=== PATIENT | female | born 1935 | race Caucasian/White ===

== ENCOUNTER → 2016-04-01 | Outpatient (REF) | payer MEDICARE, BC ==
[~2016-04-01] MED LIST: AMLO10TA PO; AMLO10TA2 PO; ASPI32ECTA PO; ASPI81TA85 PO; ASPI81TAEC PO; ATOR1TAB19 PO; ATOR40TA PO; BOOSLIQ PO; CHLO25TA PO; COLA100C PO; ENSULIQ2 PO; FURO40TA2 PO; FURO8SOL PO; ISOS5TA PO; K-TA10TA2 PO; LEVA250T PO; LIPI80TA PO; LISI10TA4 PO; MOM30SS PO; NORV5TAB PO; PLAV75TA38 PO; POTA10CA PO; POTA20PW PO; PREV30CA11 PO; PROC30TA PO; REME15TA PO; REME30TA PO; SENO8.6T10 PO; THEO200T9 PO; TYLE325T5 PO; ZANT1TAB PO
[2016-04-01 14:37] LABS: PERCENT SATURATION 20.3 % (13.2-37.4)
== END ==
LOC: M LAB REF 13:54
PROVIDERS: ATTEND Internal Medicine Medical Oncology
DX: D64.9 Anemia, unspecified (principal)

== ENCOUNTER → 2016-06-06 | Outpatient (REF) | payer MEDICARE, BC ==
[~2016-06-06] MED LIST changes: -COLA100C PO; +COLA100C3 PO; +KLOR20PO12 PO; -POTA20PW PO; +THEO1TAB3 PO; -THEO200T9 PO
[2016-06-06 18:02] LABS: BASO % 0.6 % (0.0-1.0); EOS # 0.4 K/mm3 (0.0-0.50); EOS % 5.1 % (0.0-3.0); LARGE UNSTAINED CELL # 0.2 K/mm3 (0.0-0.4); LYMPH # 2.2 K/mm3 (1.5-4.5); LYMPH % 30.5 % (24.0-44.0); MEAN CORPUSCULAR HEMOGLOBIN 29.2 pg (27.0-33.0); MEAN CORPUSCULAR HGB CONC 32.7 g/dl (32.0-36.5); MEAN CORPUSCULAR VOLUME 89.2 fl (80.0-96.0); MONO # 0.4 K/mm3 (0.0-0.8); MONO % 4.9 % (0.0-5.0); NEUTROPHILS # 4.2 K/mm3 (1.8-7.7); NEUTROPHILS % 56.9 % (36.0-66.0); PLATELET COUNT, AUTOMATED 317 k/mm3 (150-450); WHITE BLOOD COUNT 7.4 K/mm3 (4.0-10.0)
[2016-06-06 19:36] LABS: ALBUMIN 3.8 GM/DL (3.2-5.2); BILIRUBIN,TOTAL 0.4 MG/DL (0.2-1.0); CALCIUM LEVEL 9.3 MG/DL (8.8-10.2); CREATININE FOR GFR 1.67 MG/DL (0.55-1.02); GLOMERULAR FILTRATION RATE 31.3 (>32); POTASSIUM SERUM 4.2 MEQ/L (3.5-5.1); TOTAL PROTEIN 7.6 GM/DL (6.4-8.2)
== END ==
LOC: M SFHCCLAY 13:33
PROVIDERS: ATTEND Family Medicine
DX: D64.9 Anemia, unspecified (principal); I10 Essential (primary) hypertension; E78.00 Pure hypercholesterolemia, unspecified
CPT/HCPCS: 80053; 80061; 83540; 85025; G0463

== ENCOUNTER → 2016-08-22 | Outpatient (CLI) | payer MEDICARE, BC ==
[~2016-08-22] MED LIST changes: +ALBU17IN2 INH; +ANOR1AER INH; +ASPI325T24 PO; -ASPI32ECTA PO; -ATOR40TA PO; +ATOR40TA75 PO; -COLA100C3 PO; +COLA100C5 PO; +ENSULIQ10 PO; -ENSULIQ2 PO; +FEOS45TA3 PO; +LEVA1TAB PO; -LEVA250T PO; +PLAV1TAB2 PO; -PLAV75TA38 PO; +PREV1CAP PO; -PREV30CA11 PO
--- NOTE | 2016-08-22 12:23 | REP ---
CHEST, TWO VIEWS: Two views of chest performed. Comparison 02/18/2016. There is cardiomegaly and pulmonary venous hypertension. There is mild chronic interstitial fibrosis. There is no acute infiltrate. There is calcification and tortuosity of the thoracic aorta. The mediastinal silhouette is unchanged. Left dual lead pacemaker is noted. There are degenerative changes of the spine. IMPRESSION: Cardiomegaly and chronic changes are stable. No evidence of acute infiltrate.
== END ==
LOC: M CLY 10:42
PROVIDERS: ATTEND Family Medicine
DX: I11.9 Hypertensive heart disease without heart failure (principal); R05 Cough
CPT/HCPCS: 71020; 80048; 83880; G0463

== ENCOUNTER → 2016-08-22 | Outpatient (REF) | payer MEDICARE, BC ==
[~2016-08-22] MED LIST changes: -ALBU17IN2 INH; -ANOR1AER INH; -ASPI325T24 PO; +ASPI32ECTA PO; +ATOR40TA PO; -ATOR40TA75 PO; +COLA100C3 PO; -COLA100C5 PO; -ENSULIQ10 PO; +ENSULIQ2 PO; -FEOS45TA3 PO; -LEVA1TAB PO; +LEVA250T PO; -PLAV1TAB2 PO; +PLAV75TA38 PO; -PREV1CAP PO; +PREV30CA11 PO
[2016-08-22 18:29] LABS: CALCIUM LEVEL 9.6 MG/DL (8.8-10.2); CREATININE FOR GFR 1.55 MG/DL (0.55-1.02); POTASSIUM SERUM 3.9 MEQ/L (3.5-5.1)
== END ==
LOC: M SFHCCLAY 09:40
PROVIDERS: ATTEND Nurse Practitioner Family
DX: I10 Essential (primary) hypertension (principal)

== ENCOUNTER → 2016-09-19 | Outpatient (REF) | payer MEDICARE, BC ==
[~2016-09-19] MED LIST changes: +ALBU17IN2 INH; +ANOR1AER INH; +ASPI325T24 PO; -ASPI32ECTA PO; -ATOR40TA PO; +ATOR40TA75 PO; -COLA100C3 PO; +COLA100C5 PO; +ENSULIQ10 PO; -ENSULIQ2 PO; +FEOS45TA3 PO; +LEVA1TAB PO; -LEVA250T PO; +PLAV1TAB2 PO; -PLAV75TA38 PO; +PREV1CAP PO; -PREV30CA11 PO
[2016-09-20 12:49] LABS: ADD MANUAL DIFFER YES; MEAN CORPUSCULAR HEMOGLOBIN 28.9 pg (27.0-33.0); MEAN CORPUSCULAR HGB CONC 31.9 g/dl (32.0-36.5); MEAN CORPUSCULAR VOLUME 90.7 fl (80.0-96.0); PLATELET COUNT, AUTOMATED 612 k/mm3 (150-450); RED CELL DISTRIBUTION WIDTH 13.3 % (11.5-14.5)
[2016-09-20 13:15] LABS: ALBUMIN/GLOBULIN RATIO 0.67 (1.00-1.93); BILIRUBIN,TOTAL 0.4 MG/DL (0.2-1.0); CREATININE FOR GFR 1.73 MG/DL (0.55-1.02); GLOMERULAR FILTRATION RATE 29.9 (>32); POTASSIUM SERUM 5.1 MEQ/L (3.5-5.1); TOTAL PROTEIN 7.5 GM/DL (6.4-8.2)
[2016-09-20 13:16] LABS: BASOPHILS 1 % (0-4); EOSINOPHILS 4 % (0-5)
== END ==
LOC: M SFHCCLAY 14:32
PROVIDERS: ATTEND Family Medicine
DX: I10 Essential (primary) hypertension (principal); R35.0 Frequency of micturition
CPT/HCPCS: 80053; 81002; 85025; 87086; G0463

== ENCOUNTER → 2016-09-26 | Outpatient (REF) | payer MEDICARE, BC ==
[2016-09-26 20:28] LABS: PERCENT SATURATION 12.3 % (13.2-37.4)
== END ==
LOC: M LAB REF 18:27
PROVIDERS: ATTEND Internal Medicine Nephrology
DX: N18.3 Chronic kidney disease, stage 3 (moderate) (principal); D63.1 Anemia in chronic kidney disease

== ENCOUNTER → 2016-09-30 | Outpatient (REF) | payer MEDICARE, BC ==
[2016-09-30 19:53] LABS: BASO % 0.5 % (0.0-1.0); EOS # 0.2 K/mm3 (0.0-0.50); EOS % 2.4 % (0.0-3.0); LARGE UNSTAINED CELL # 0.1 K/mm3 (0.0-0.4); LARGE UNSTAINED CELL % 1.5 % (0.0-4.0); LYMPH # 1.6 K/mm3 (1.5-4.5); LYMPH % 15.9 % (24.0-44.0); MEAN CORPUSCULAR HEMOGLOBIN 28.1 pg (27.0-33.0); MEAN CORPUSCULAR HGB CONC 31.9 g/dl (32.0-36.5); MEAN CORPUSCULAR VOLUME 88.3 fl (80.0-96.0); MONO # 0.7 K/mm3 (0.0-0.8); MONO % 7.4 % (0.0-5.0); NEUTROPHILS # 6.6 K/mm3 (1.8-7.7); NEUTROPHILS % 72.3 % (36.0-66.0); PLATELET COUNT, AUTOMATED 677 k/mm3 (150-450); RED CELL DISTRIBUTION WIDTH 13.6 % (11.5-14.5); WHITE BLOOD COUNT 9.1 K/mm3 (4.0-10.0)
== END ==
LOC: M SFHCCLAY 13:38
PROVIDERS: ATTEND Family Medicine
DX: D64.9 Anemia, unspecified (principal)

== ENCOUNTER 2016-10-11 07:46 | Outpatient (CLI) | payer MEDICARE, BC ==
[~2016-10-11] VITALS: Ht 154.9 cm; Wt 58.6 kg
[~2016-10-11 07:46] MED LIST changes: -ALBU17IN2 INH; -ANOR1AER INH; -FEOS45TA3 PO
[2016-10-11] MEDS ORDERED: IRON SUCROSE 25 MG in NS 50 ML IV ONE (08:00)
[2016-10-11] MEDS ORDERED: IRON SUCROSE 475 MG in NS 250 ML IV ONE (09:00)
[2016-10-11] MEDS ORDERED: ALBU17IN2 INH (09:29)
[2016-10-11] MEDS ORDERED: ANOR1AER INH (09:30)
[2016-10-11] MEDS ORDERED: FEOS45TA3 PO (09:30)
== END 2016-10-11 13:10 | disposition home or self-care (01) ==
LOC: M INFU 07:46
PROVIDERS: ATTEND Internal Medicine Nephrology
DX: D50.9 Iron deficiency anemia, unspecified (principal); Z88.0 Allergy status to penicillin; Z79.899 Other long term (current) drug therapy
CPT/HCPCS: 96365; 96366; J1756

== ENCOUNTER → 2016-10-31 | Outpatient (REF) | payer MEDICARE, BC ==
[~2016-10-31] MED LIST changes: +ALBU17IN2 INH; +ANOR1AER INH; +FEOS45TA3 PO
[2016-11-01 11:38] LABS: BASO # 0.1 K/mm3 (0.0-0.2); BASO % 0.6 % (0.0-1.0); EOS # 0.3 K/mm3 (0.0-0.50); EOS % 3.3 % (0.0-3.0); LARGE UNSTAINED CELL # 0.2 K/mm3 (0.0-0.4); LARGE UNSTAINED CELL % 1.7 % (0.0-4.0); LYMPH # 2.8 K/mm3 (1.5-4.5); MEAN CORPUSCULAR HEMOGLOBIN 28.3 pg (27.0-33.0); MEAN CORPUSCULAR HGB CONC 32.2 g/dl (32.0-36.5); MEAN CORPUSCULAR VOLUME 87.9 fl (80.0-96.0); MONO # 0.4 K/mm3 (0.0-0.8); MONO % 4.8 % (0.0-5.0); NEUTROPHILS # 5.3 K/mm3 (1.8-7.7); NEUTROPHILS % 59.6 % (36.0-66.0); PLATELET COUNT, AUTOMATED 511 k/mm3 (150-450); RED CELL DISTRIBUTION WIDTH 15.3 % (11.5-14.5); WHITE BLOOD COUNT 8.9 K/mm3 (4.0-10.0)
[2016-11-01 11:56] LABS: CALCIUM LEVEL 9.6 MG/DL (8.8-10.2); CREATININE FOR GFR 1.78 MG/DL (0.55-1.02); POTASSIUM SERUM 4.9 MEQ/L (3.5-5.1)
== END ==
LOC: M SFHCCLAY 15:29
PROVIDERS: ATTEND Family Medicine
DX: D64.9 Anemia, unspecified (principal); I10 Essential (primary) hypertension
CPT/HCPCS: 80048; 83540; 85025; G0463

== ENCOUNTER → 2017-01-02 | Outpatient (REF) | payer MEDICARE, BC ==
[2017-01-02 20:49] LABS: MEAN CORPUSCULAR HEMOGLOBIN 27.2 pg (27.0-33.0); MEAN CORPUSCULAR HGB CONC 30.9 g/dl (32.0-36.5); MEAN CORPUSCULAR VOLUME 87.9 fl (80.0-96.0); PLATELET COUNT, AUTOMATED 368 10^3/uL (150-450); RED CELL DISTRIBUTION WIDTH 17.1 % (11.5-14.5); WHITE BLOOD COUNT 7.8 10^3/uL (4.0-10.0)
== END ==
LOC: M LAB REF 16:26
PROVIDERS: ATTEND Physician Assistant
DX: I48.0 Paroxysmal atrial fibrillation (principal); Z51.81 Encounter for therapeutic drug level monitoring; Z79.01 Long term (current) use of anticoagulants; Z23 Encounter for immunization
CPT/HCPCS: 36415; 85027; 90662; G0008; G0463

== ENCOUNTER → 2017-08-10 | Outpatient (REF) | payer MEDICARE, BC ==
[2017-08-10 18:46] LABS: ANION GAP 10 MEQ/L (8-16); BLOOD UREA NITROGEN 24 MG/DL (7-18); CALCIUM LEVEL 9.2 MG/DL (8.8-10.2); CARBON DIOXIDE LEVEL 21 MEQ/L (21-32); CHLORIDE LEVEL 109 MEQ/L (98-107); GLOMERULAR FILTRATION RATE 28.5 (>32); GLUCOSE, FASTING 101 MG/DL (70-100); POTASSIUM SERUM 4.1 MEQ/L (3.5-5.1); SODIUM LEVEL 140 MEQ/L (136-145)
== END ==
LOC: M SFHCCLAY 09:48
DX: R35.0 Frequency of micturition (principal)
CPT/HCPCS: 80048

== ENCOUNTER 2017-08-15 12:44 | Emergency (ER) | payer MEDICARE, BC ==
[2017-08-15] MEDS: ACETAMINOPHEN TAB 650MG DOSE (2X325MG) PO (14:44)
[2017-08-15 14:48] LABS: BASO # 0.1 10^3/uL (0.0-0.2); BASO % 1.1 % (0.0-1.0); EOS # 0.2 10^3/uL (0.0-0.50); EOS % 2.6 % (0.0-3.0); HEMATOCRIT 33.4 % (36.0-47.0); HEMOGLOBIN 10.5 g/dl (12.0-15.5); IMMATURE GRANULOCYTE % 0.2 % (0-3.0); LYMPH # 1.4 10^3/uL (1.5-4.5); LYMPH % 20.9 % (24.0-44.0); MEAN CORPUSCULAR HEMOGLOBIN 27.9 pg (27.0-33.0); MEAN CORPUSCULAR HGB CONC 31.4 g/dl (32.0-36.5); MEAN CORPUSCULAR VOLUME 88.6 fl (80.0-96.0); MONO # 0.6 10^3/uL (0.0-0.8); NEUTROPHILS # 4.3 10^3/uL (1.8-7.7); NEUTROPHILS % 66.2 % (36.0-66.0); PLATELET COUNT, AUTOMATED 339 10^3/uL (150-450); RED BLOOD COUNT 3.77 10^6/uL (4.00-5.40); RED CELL DISTRIBUTION WIDTH 15.9 % (11.5-14.5); WHITE BLOOD COUNT 6.5 10^3/uL (4.0-10.0)
[2017-08-15 15:09] LABS: INR 1.19; PROTHROMBIN TIME 15.3 SECONDS (12.4-14.5)
[2017-08-15 15:11] LABS: PARTIAL THROMBOPLASTIN TIME 47.6 SECONDS (26.8-37.9)
[2017-08-15 15:16] LABS: ANION GAP 7 MEQ/L (8-16); BLOOD UREA NITROGEN 19 MG/DL (7-18); CALCIUM LEVEL 9.3 MG/DL (8.8-10.2); CARBON DIOXIDE LEVEL 26 MEQ/L (21-32); CHLORIDE LEVEL 108 MEQ/L (98-107); CK-MB VALUE MASS 1.4 NG/ML (<3.6); CPK CREATINE PHOSPHOKINASE 127 U/L (26-192); CREATININE FOR GFR 1.66 MG/DL (0.55-1.30); GLOMERULAR FILTRATION RATE 31.3 (>32); GLUCOSE, FASTING 111 MG/DL (70-100); POTASSIUM SERUM 3.8 MEQ/L (3.5-5.1); SODIUM LEVEL 141 MEQ/L (136-145); TROPONIN I < 0.02 NG/ML (< 0.10)
== END 2017-08-15 16:55 | disposition home or self-care (01) ==
LOC: M ED 12:44
DX: R51 Headache (principal); R44.3 Hallucinations, unspecified; I13.10 Hypertensive heart and chronic kidney disease without heart failure, with stage 1 through stage 4 chronic kidney disease, or unspecified chronic kidney disease; I50.9 Heart failure, unspecified; I25.10 Atherosclerotic heart disease of native coronary artery without angina pectoris; E78.9 Disorder of lipoprotein metabolism, unspecified; J44.9 Chronic obstructive pulmonary disease, unspecified; N18.9 Chronic kidney disease, unspecified; Z86.73 Personal history of transient ischemic attack (TIA), and cerebral infarction without residual deficits; I25.2 Old myocardial infarction; K21.9 Gastro-esophageal reflux disease without esophagitis; Z87.891 Personal history of nicotine dependence; Z88.0 Allergy status to penicillin; Z79.899 Other long term (current) drug therapy; Z79.01 Long term (current) use of anticoagulants; Z79.82 Long term (current) use of aspirin
CPT/HCPCS: 71045

== ENCOUNTER → 2018-09-18 | Outpatient (REF) | payer MEDICARE, BC ==
[~2018-09-18] MED LIST changes: -AMLO10TA2 PO; +AMLO10TA5 PO; +ASPI-255 PO; -ASPI325T24 PO; +ASPI81TA26 PO; +BISO5TAB5 PO; +ELIQ2.5T PO; +FIBE625T22 PO; +FLUT11IN INH; +FURO20TA2 PO; +KLOR10TA76 PO; -LEVA1TAB PO; +LEVA250T13 PO; +POLY150C4 PO; -POTA10CA PO; +PROAAER10 INH; +SPIR-10 PO; -THEO1TAB3 PO; +THEO200T12 PO; +ZANT150T15 PO; -ZANT1TAB PO
== END ==
LOC: M SFHCCLAY 14:10
PROVIDERS: ATTEND Family Medicine
DX: N39.0 Urinary tract infection, site not specified (principal)
CPT/HCPCS: 81002; 87088; 87186; G0463

== ENCOUNTER → 2018-10-18 | Outpatient (REF) | payer MEDICARE, BC ==
[2018-10-18 14:17] LABS: CALCIUM LEVEL 9.7 MG/DL (8.8-10.2); CREATININE FOR GFR 1.93 MG/DL (0.55-1.30); GLOMERULAR FILTRATION RATE 26.3 (>32); POTASSIUM SERUM 4.5 MEQ/L (3.5-5.1)
== END ==
LOC: M SFHCCLAY 09:05
PROVIDERS: ATTEND Nurse Practitioner Family
DX: R41.0 Disorientation, unspecified (principal)
CPT/HCPCS: 80048; 81002; G0463

== ENCOUNTER → 2018-11-02 | Outpatient (REF) | payer MEDICARE, BC ==
[~2018-11-02] MED LIST changes: -BISO5TAB5 PO; +BISO5TAB9 PO
== END ==
LOC: M SFHCCLAY 16:11
PROVIDERS: ATTEND Family Medicine
DX: R31.9 Hematuria, unspecified (principal)
CPT/HCPCS: 81002; 87088; 87186; G0463

== ENCOUNTER → 2018-11-26 | Outpatient (REF) | payer MEDICARE, BC ==
[2018-11-26 19:16] LABS: FERRITIN 9 NG/ML (8-252); IRON (FE) 32 UG/DL (50-170); PERCENT SATURATION 8.2 % (13.2-45.0); TOTAL IRON BINDING CAPACITY 389 UG/DL (250-450)
[2018-11-26 19:44] LABS: VITAMIN B12 LEVEL 666 PG/ML
[2018-11-26 19:45] LABS: FOLATE > 24.0 NG/ML
== END ==
LOC: M LAB REF 18:28
PROVIDERS: ATTEND Internal Medicine Nephrology
DX: D50.9 Iron deficiency anemia, unspecified (principal)

== ENCOUNTER 2018-12-04 09:27 | Outpatient (CLI) | payer MEDICARE, BC ==
[~2018-12-04] VITALS: Ht 152.4 cm; Wt 78.8 kg
[2018-12-04] VITALS (7 sets, daily range): BP systolic 123–170; BP diastolic 58–76
[2018-12-04] MEDS ORDERED: IRON SUCROSE 175 MG in NS 100 ML IV ONE (11:00)
[2018-12-04] MEDS ORDERED: IRON SUCROSE 25 MG in NS 50 ML IV ONE (11:00)
== END 2018-12-04 14:45 | disposition home or self-care (01) ==
LOC: M INFU 09:27
PROVIDERS: ATTEND Internal Medicine Nephrology
DX: D50.9 Iron deficiency anemia, unspecified (principal); Z79.899 Other long term (current) drug therapy; Z88.0 Allergy status to penicillin
CPT/HCPCS: 96365; 96366; 96367; J1756

== ENCOUNTER 2018-12-11 09:53 | Outpatient (CLI) | payer MEDICARE, BC ==
[~2018-12-11] VITALS: Ht 152.4 cm; Wt 78.7 kg
[2018-12-11 10:35] VITALS: BP 158/67
[2018-12-11 10:50] VITALS: BP 150/69
[2018-12-11] MEDS ORDERED: IRON SUCROSE 200 MG in NS 100 ML IV ONE (11:00)
[2018-12-11 11:50] VITALS: BP 149/66
[2018-12-11 12:50] VITALS: BP 147/65
[2018-12-11 14:00] VITALS: BP 158/74
== END 2018-12-11 14:20 | disposition home or self-care (01) ==
LOC: M INFU 09:53
PROVIDERS: ATTEND Internal Medicine Nephrology
DX: D50.9 Iron deficiency anemia, unspecified (principal); Z79.899 Other long term (current) drug therapy; Z79.82 Long term (current) use of aspirin; Z88.0 Allergy status to penicillin
CPT/HCPCS: 96365; 96366; J1756

== ENCOUNTER 2018-12-18 11:24 | Outpatient (CLI) | payer MEDICARE, BC ==
[~2018-12-18] VITALS: Ht 152.4 cm; Wt 78.8 kg
[~2018-12-18 11:24] MED LIST changes: +BISO5TAB14 PO; -BISO5TAB9 PO
[2018-12-18 11:52] VITALS: BP 142/65
[2018-12-18] MEDS ORDERED: IRON SUCROSE 200 MG in NS 100 ML OVER 1 HR IV ONE (12:30)
[2018-12-18 12:45] VITALS: BP 144/62
[2018-12-18 13:52] VITALS: BP 133/63
[2018-12-18 14:40] VITALS: BP 129/60
== END 2018-12-18 14:40 | disposition home or self-care (01) ==
LOC: M INFU 11:24
PROVIDERS: ATTEND Internal Medicine Nephrology
DX: D50.9 Iron deficiency anemia, unspecified (principal); N18.4 Chronic kidney disease, stage 4 (severe); N27.0 Small kidney, unilateral; I70.1 Atherosclerosis of renal artery; Z79.899 Other long term (current) drug therapy
CPT/HCPCS: 96365; 96366; J1756

== ENCOUNTER → 2019-08-16 | Outpatient (REF) | payer MEDICARE, BC ==
[2019-08-16 18:12] LABS: PERCENT SATURATION 14.1 % (13.2-45.0)
== END ==
LOC: M LAB REF 16:49
PROVIDERS: ATTEND Internal Medicine Nephrology
DX: D50.9 Iron deficiency anemia, unspecified (principal)

== ENCOUNTER 2019-08-27 21:19 | Inpatient (IN) | payer MEDICARE, BC ==
[~2019-08-27] VITALS: Ht 152.4 cm; Wt 79.3 kg
--- NOTE | 2019-08-27 23:13 | REPVR ---
PROCEDURE INFORMATION: Exam: CT Lumbar Spine Without Contrast Exam date and time: 08/27/2019 10:50 PM Age: 84 years old Clinical indication: Low back pain; Additional info: Fall with pain to lower back TECHNIQUE: Imaging protocol: Computed tomography images of the lumbar spine without contrast. Radiation optimization: All CT scans at this facility use at least one of these dose optimization techniques: automated exposure control; mA and/or kV adjustment per patient size (includes targeted exams where dose is matched to clinical indication); or iterative reconstruction. COMPARISON: No relevant prior studies available. FINDINGS: Vertebrae: Vertebrae are hypodense bones indicating osteopenia. Minimal L4-L5 anterolisthesis. No acute vertebral fracture/subluxation. Discs/Spinal canal/Neural foramina: Diffuse degenerative disc space loss, facet arthropathy and ligamentum flavum thickening, and scattered disc bulge/protrusions cause up to moderate foraminal and spinal stenosis most severe from L3 through S1. Kidneys and ureters: Right renal scarring. Right renal atrophy. Stomach and bowel: Colonic diverticulosis. Vasculature: Aortic atherosclerosis. Soft tissues: Unremarkable. IMPRESSION: No acute vertebral fracture/subluxation. Moderate spondylosis. Electronically signed by: Kyle Castillo On 08/27/2019 23:13:00 PM
[2019-08-27 23:38] LABS: BASO # 0.1 10^3/uL (0.0-0.2); BASO % 0.7 % (0.0-1.0); EOS # 0.2 10^3/uL (0.0-0.5); EOS % 2.6 % (0.0-3.0); HEMATOCRIT 38.1 % (36.0-47.0); HEMOGLOBIN 12.1 g/dl (12.0-15.5); LYMPH # 2.5 10^3/uL (1.5-5.0); LYMPH % 27.6 % (24.0-44.0); MEAN CORPUSCULAR HEMOGLOBIN 27.8 pg (27.0-33.0); MEAN CORPUSCULAR HGB CONC 31.8 g/dl (32.0-36.5); MEAN CORPUSCULAR VOLUME 87.4 fl (80.0-96.0); MONO # 0.8 10^3/uL (0.0-0.8); MONO % 9.2 % (0.0-5.0); NEUTROPHILS # 5.5 10^3/uL (1.5-8.5); NEUTROPHILS % 59.7 % (36.0-66.0); PLATELET COUNT, AUTOMATED 280 10^3/uL (150-450); RED BLOOD COUNT 4.36 10^6/uL (4.00-5.40); WHITE BLOOD COUNT 9.2 10^3/uL (4.0-10.0)
[2019-08-28 00:01] LABS: ALBUMIN 3.4 GM/DL (3.2-5.2); BILIRUBIN,DIRECT 0.1 MG/DL (0.0-0.2); BILIRUBIN,TOTAL 0.4 MG/DL (0.2-1.0); CREATININE FOR GFR 2.16 MG/DL (0.55-1.30); POTASSIUM SERUM 3.8 MEQ/L (3.5-5.1); TOTAL PROTEIN 7.1 GM/DL (6.4-8.2)
[2019-08-28] MEDS ORDERED: SERT50TA29 PO (02:24)
[2019-08-28] MEDS ORDERED: OLAN2.5T25 PO (02:24)
[2019-08-28] MEDS ORDERED: ACET1TAB55 PO (02:48)
[2019-08-28] MEDS ORDERED: CALC625T15 PO (02:48)
[2019-08-28] MEDS ORDERED: AMLO5TAB6 PO (02:48)
--- NOTE | 2019-08-28 03:47 | HPEPDOC ---
[facility] Medical History & Physical Date of Admission Aug 28, 2019 Date of Service: Aug 28, 2019 Attending Physician: SIVA ARDON MD History and Physical CHIEF COMPLAINT: Fall HISTORY OF PRESENT ILLNESS: 84-year-old female with past medical history of CVA, COPD, hypertension, paroxysmal atrial fibrillation (on Eliquis), hypertension, iron deficiency anemia and chronic kidney disease presents after a fall. Patient is comfortable, reports left hip/low back pain due to the fall and repeatedly re quested to go back home. Patient's [id number]-ub-gwz is at bedside, reports that patient is having progressively worsening dementia symptoms along with hallucinations. She still lives alone and awtycout-[id number] is concerned about her safety at home and requesting placement for the patient. Patient denies any shortness of breath, chest pain, nausea, vomiting, diarrhea or constipation. 10 point review of systems negative except for above PAST MEDICAL HISTORY: 1. CVA. 2. Chronic kidney disease. 3. Paroxysmal atrial fibrillation. 4. Iron deficiency anemia 5. COPD 6. Hypertension PAST SURGICAL HISTORY: 1. Carotid endarterectomy. SOCIAL HISTORY: Previous smoker. Denies alcohol use. Denies drug use FAMILY HISTORY: Positive for heart disease ALLERGIES: Please see below. HOME MEDICATIONS: Please see below. PHYSICAL EXAMINATION: VITAL SIGNS: Please see below. GENERAL: No distress HEENT: Normocephalic, atraumatic, moist mucous membranes NECK: Supple CARDIOVASCULAR EXAMINATION: S1, S2, no murmurs RESPIRATORY EXAMINATION: Scattered rhonchi, no wheezing ABDOMINAL EXAMINATION: Soft, nontender, nondistended, positive bowel sounds EXTREMITIES: Trace lower extremity edema SKIN: No rash NEUROLOGICAL EXAMINATION: Alert and oriented 3, no focal deficits PSYCHIATRIC EXAMINATION: Calm and cooperative LABORATORY DATA: See below. IMAGING: Hip imaging negative for fracture MICROBIOLOGY: Please see below. ASSESSMENT: 84-year-old female with multiple medical comorbidities who presented after a fall is being admitted for possible placement. PLAN: 1. Fall/physical deconditioning Having progressive symptoms of dementia with hallucinations, lives alone, family requesting placement, PT/OT evaluation, social services analyst to arrange placement. 2. History of CVA. Continue statin. 3. Paroxysmal atrial fibrillation. Continue Eliquis for anticoagulation and metoprolol for rate control. 4. COPD Stable, continue home regimen. 5. Hypertension. continue bisoprolol, Norvasc and spironolactone DVT prophylaxis: On Eliquis GI prophylaxis: Not needed Vital Signs Vital Signs Date Time Temp Pulse Resp B/P (MAP) Pulse Ox O2 Delivery O2 Flow Rate FiO2 08/27/19 23:24 18 08/27/19 21:20 97.3 79 96 Room Air Laboratory Data Labs 24H Laboratory Tests 2 08/27/19 23:19: Immature Granulocyte % (Auto) 0.2, Neutrophils (%) (Auto) 59.7, Lymphocytes (%) (Auto) 27.6, Monocytes (%) (Auto) 9.2H, Eosinophils (%) (Auto) 2.6, Basophils (%) (Auto) 0.7, Neutrophils # (Auto) 5.5, Lymphocytes # (Auto) 2.5, Monocytes # (Auto) 0.8, Eosinophils # (Auto) 0.2, Basophils # (Auto) 0.1, Nucleated Red Blood Cells % (auto) 0.0, Anion Gap 9, Glomerular Filtration Rate 23.0L, Lactic Acid Level 1.0, Calcium Level 9.0, Total Bilirubin 0.4, Direct Bilirubin 0.1, Aspartate Amino Transf (AST/SGOT) 15, Alanine Aminotransferase (ALT/SGPT) 17, Alkaline Phosphatase 133H, Total Protein 7.1, Albumin 3.4, Albumin/Globulin Ratio 0.9L, Lipase 104 08/28/19 00:43: Urine Color YELLOW, Urine Appearance HAZY, Urine pH 5.0, Urine Specific [place] 1.008, Urine Protein NEGATIVE, Urine Glucose (UA) NEGATIVE, Urine Ketones NEGATIVE, Urine Blood NEGATIVE, Urine Nitrite NEGATIVE, Urine Bilirubin NEGATIVE, Urine Urobilinogen 0.2, Urine Leukocyte Esterase 2+H, Urine WBC (Auto) 12H, Urine RBC (Auto) 1, Urine Hyaline Casts (Auto) 0, Urine Bacteria (Auto) 1+H, Urine Squamous Epithelial Cells 1, Urine Sperm (Auto) CBC/BMP Laboratory Tests 08/27/19 23:19 Microbiology Microbiology 08/28/19 Urine Culture, Received Pending 08/28/19 Blood Culture, Received Pending 08/27/19 Blood Culture, Received Pending Home Medications Scheduled Amlodipine Besylate (Amlodipine Besylate) 5 Mg Tablet, 5 MG PO DAILY Apixaban (Eliquis) 2.5 Mg Tab, 2.5 MG PO BID Atorvastatin Calcium (Lipitor) 80 Mg Tab, 80 MG PO QHS Bisoprolol Fumarate (Bisoprolol Fumarate) 5 Mg Tab, 5 MG PO DAILY Calcium Polycarbophil (Calcium Polycarbophil) 625 Mg Tablet, 625 MG PO DAILY Docusate Sodium (Colace) 100 Mg Cap, 100 MG PO BID Fluticasone Propionate (Flovent Hfa) 110 Mcg/Act Aer, 1 PUFF INH BID Furosemide (Furosemide) 20 Mg Tab, 20 MG PO DAILY Iron Polysaccharide Complex (Poly-Iron) 150 Mg Cap, 150 MG PO DAILY Sertraline HCl (Sertraline HCl) 50 Mg Tablet, 50 MG PO DAILY Spironolactone (Spironolactone) 25 Mg Tab, 12.5 MG PO DAILY Umeclidinium Brm/Vilanterol Tr (Anoro Ellipta 62.5-25 Mcg INH) 1 Aer Aer, 1 PUFF INH DAILY Scheduled PRN Acetaminophen (Acetaminophen) 325 Mg Tablet, 650 MG PO Q6H PRN for PAIN Albuterol Sulfate (Proair Hfa) 108 Mcg/Act Aer, 2 PUFF INH QID PRN for SHORTNESS OF BREATH Allergies Coded Allergies: Penicillins (Verified Allergy, Intermediate, HIVES, 08/27/19) A-FIB/CHADSVASC A-FIB History Current/History of A-Fib/PAF?: Yes Current PO Anticoag Therapy: Yes SIVA ARDON MD Aug 28, 2019 03:47
[2019-08-28] MEDS ORDERED: FAMO40TA3 PO (04:00)
[2019-08-28 04:30] VITALS: BP 153/74
[2019-08-28] MEDS ORDERED: ACETAMINOPHEN TAB 650MG DOSE (2X325MG) PO PRN (05:45)
[2019-08-28] MEDS ORDERED: ALBUTEROL 90 MCG/ACT 8GM HFA INHALER INH PRN (05:45)
[2019-08-28 06:00] VITALS: BP 148/68
[2019-08-28] MEDS: ATORVASTATIN 20 MG TAB PO SCH ×2 (06:07→20:30)
--- NOTE | 2019-08-28 08:11 | REP ---
Pelvis bilateral hip study: Five views. History: Injury in a fall. Findings: AP view of the pelvis demonstrates an intact bony pelvic ring. No pelvic or sacral fracture is seen. There is prominent vascular calcification. AP and frog-leg views of both hips demonstrate intact femoral heads and preserved joint spaces. Periarticular soft tissues are unremarkable. No fractures seen. Impression: No fracture noted. Electronically Signed by Micheal Cheema MD 08/28/2019 08:03 A
[2019-08-28 08:36] LABS: BASO # 0.1 10^3/uL (0.0-0.2); BASO % 0.7 % (0.0-1.0); EOS # 0.2 10^3/uL (0.0-0.5); EOS % 2.3 % (0.0-3.0); HEMATOCRIT 41.5 % (36.0-47.0); HEMOGLOBIN 13.2 g/dl (12.0-15.5); LYMPH # 2.5 10^3/uL (1.5-5.0); LYMPH % 27.9 % (24.0-44.0); MEAN CORPUSCULAR HEMOGLOBIN 28.4 pg (27.0-33.0); MEAN CORPUSCULAR HGB CONC 31.8 g/dl (32.0-36.5); MEAN CORPUSCULAR VOLUME 89.2 fl (80.0-96.0); MONO # 0.8 10^3/uL (0.0-0.8); MONO % 8.6 % (0.0-5.0); NEUTROPHILS # 5.5 10^3/uL (1.5-8.5); NEUTROPHILS % 60.3 % (36.0-66.0); PLATELET COUNT, AUTOMATED 266 10^3/uL (150-450); RED BLOOD COUNT 4.65 10^6/uL (4.00-5.40)
[2019-08-28] MEDS: DOCUSATE SODIUM 100 MG CAP PO SCH ×2 (08:42→20:30)
[2019-08-28] MEDS: FUROSEMIDE 20 MG TAB PO SCH (08:42)
[2019-08-28] MEDS: FIBER-CON 625 MG TAB PO SCH (08:42)
[2019-08-28] MEDS: APIXABAN 2.5 MG TAB (ELIQUIS) PO SCH ×2 (08:42→20:30)
[2019-08-28] MEDS: SERTRALINE HCL 50 MG TAB PO SCH (08:42)
[2019-08-28] MEDS: bisoproloL fumarate 5 MG TAB PO SCH (08:43)
[2019-08-28] MEDS: SPIRONOLACTONE 12.5MG PER 1/2 TABLET PO SCH (08:43)
[2019-08-28] MEDS: amLODIPine 5 MG TAB PO SCH (08:43)
[2019-08-28] MEDS ORDERED: ENTER DRUG NAME HERE (PATIENT'S OWN MED) INH SCH (09:00)
[2019-08-28 09:07] LABS: CALCIUM LEVEL 9.3 MG/DL (8.8-10.2); CREATININE FOR GFR 1.98 MG/DL (0.55-1.30); GLOMERULAR FILTRATION RATE 25.4 (>32); POTASSIUM SERUM 3.9 MEQ/L (3.5-5.1)
--- NOTE | 2019-08-28 10:58 | IPNPDOC ---
Text Note Date of Service The patient was seen on 08/28/19. NOTE Subjective: Patient does not offer any complaints this morning, sitting up in chair having breakfast. No overnight events. PHYSICAL EXAMINATION: VITAL SIGNS: Please see below. GENERAL: No distress, alert, awake , sitting in chair. HEENT: Normocephalic, atraumatic, moist mucous membranes NECK: Supple CARDIOVASCULAR EXAMINATION: S1, S2, no murmurs RESPIRATORY EXAMINATION: Scattered rhonchi, no wheezing ABDOMINAL EXAMINATION: Soft, nontender, nondistended, positive bowel sounds EXTREMITIES: Trace lower extremity edema SKIN: No rash NEUROLOGICAL EXAMINATION: no focal deficits PSYCHIATRIC EXAMINATION: Calm and cooperative Labs and Radiology: reviewed. Assessment and Plan: 84-year-old female with past medical history of Dementia, h/o CVA, COPD, hypertension, paroxysmal atrial fibrillation (on Eliquis), hypertension, iron deficiency anemia and chronic kidney disease , carotid endarterectomy, presents after a fall. Patient is comfortable, reports left hip/low back pain due to the fall and repeatedly requested to go back home. Patient's [id number]-ws-jce is at bedside, reports that patient is having progressively worsening dementia symptoms along with hallucinations. She still lives alone and rwvycuzq-nr-[id number] is concerned about her safety at home and requesting placement for the patient. Fall/physical deconditioning Having progressive symptoms of dementia with hallucinations, lives alone, family requesting placement PT/OT evaluation, psychiatric social worker supervisor to arrange placement. Advancing Dementia with wandering and hallucinations and difficulty in sleeping. difficulty in managing at home For assistant terminal manager placement in locked unit. CKD stage 4. Baseline creatinine about 1.8 to 2.0 creatinine at baseline. History of CVA. Continue statin. Paroxysmal atrial fibrillation. Continue Eliquis for anticoagulation and metoprolol for rate control. COPD will change Anoro to salmeteraol and spiriva. Hypertension. continue bisoprolol, Norvasc and spironolactone DVT prophylaxis: On Eliquis GI prophylaxis: Not needed VS,Fishbone, I+O VS, Fishbone, I+O Laboratory Tests 08/27/19 23:19 08/28/19 08:17 Vital Signs Date Time Temp Pulse Resp B/P (MAP) Pulse Ox O2 Delivery O2 Flow Rate FiO2 08/28/19 08:43 67 148/68 08/28/19 06:00 97.5 14 95 Room Air I&O- Last 24 Hours up to 6 AM 08/28/19 06:00 Intake Total 60 ml Output Total 0 ml Balance 60 ml ASHLEY TYLER MD Aug 28, 2019 10:58
[2019-08-28] MEDS: SALMETEROL DISKUS 50MCG INHALER (SEREVENT) INH SCH ×2 (13:38→19:46)
[2019-08-28] MEDS: TIOTROPIUM INHALER/CAPSULE (SPIRIVA) INH SCH (13:39)
[2019-08-28 14:00] VITALS: BP 143/67
[2019-08-28 20:23] VITALS: BP 144/65
[2019-08-29 05:46] VITALS: BP 139/61
[2019-08-29 07:23] LABS: BASO # 0.1 10^3/uL (0.0-0.2); BASO % 0.9 % (0.0-1.0); EOS # 0.3 10^3/uL (0.0-0.5); EOS % 3.7 % (0.0-3.0); HEMATOCRIT 38.3 % (36.0-47.0); HEMOGLOBIN 11.8 g/dl (12.0-15.5); LYMPH # 1.9 10^3/uL (1.5-5.0); LYMPH % 23.6 % (24.0-44.0); MEAN CORPUSCULAR HEMOGLOBIN 27.2 pg (27.0-33.0); MEAN CORPUSCULAR HGB CONC 30.8 g/dl (32.0-36.5); MEAN CORPUSCULAR VOLUME 88.2 fl (80.0-96.0); MONO # 0.7 10^3/uL (0.0-0.8); MONO % 8.9 % (0.0-5.0); NEUTROPHILS # 5.1 10^3/uL (1.5-8.5); NEUTROPHILS % 62.5 % (36.0-66.0); PLATELET COUNT, AUTOMATED 286 10^3/uL (150-450); RED BLOOD COUNT 4.34 10^6/uL (4.00-5.40); WHITE BLOOD COUNT 8.1 10^3/uL (4.0-10.0)
--- NOTE | 2019-08-29 07:33 | IPNPDOC ---
Text Note Date of Service The patient was seen on 08/29/19. NOTE Subjective: Patient does not offer any complaints this morning, sitting up in chair having breakfast. No overnight events. PHYSICAL EXAMINATION: VITAL SIGNS: Please see below. GENERAL: No distress, alert, awake , sitting in chair. HEENT: Normocephalic, atraumatic, moist mucous membranes NECK: Supple CARDIOVASCULAR EXAMINATION: S1, S2, no murmurs RESPIRATORY EXAMINATION: Scattered rhonchi, no wheezing ABDOMINAL EXAMINATION: Soft, nontender, nondistended, positive bowel sounds EXTREMITIES: Trace lower extremity edema SKIN: No rash NEUROLOGICAL EXAMINATION: no focal deficits PSYCHIATRIC EXAMINATION: Calm and cooperative Labs and Radiology: reviewed. Assessment and Plan: 84-year-old female with past medical history of Dementia, h/o CVA, COPD, hypertension, paroxysmal atrial fibrillation (on Eliquis), hypertension, iron deficiency anemia and chronic kidney disease , carotid endarterectomy, presents after a fall. Patient is comfortable, reports left hip/low back pain due to the fall and repeatedly requested to go back home. Patient's cgznsjmx-of-glp is at bedside, reports that patient is having progressively worsening dementia symptoms along with hallucinations. She still lives alone and ejhocyys-ed-[id number] is concerned about her safety at home and requesting placement for the patient. Fall/physical deconditioning Having progressive symptoms of dementia with hallucinations, lives alone, family requesting placement PT/OT evaluation, loft worker head to arrange placement. Advancing Dementia with wandering and hallucinations and difficulty in sleeping. difficulty in managing at home For oysterman placement in locked unit. CKD stage 4. Baseline creatinine about 1.8 to 2.0 creatinine at baseline. History of CVA. Continue statin. Paroxysmal atrial fibrillation. Continue Eliquis for anticoagulation and metoprolol for rate control. COPD will change Anoro to salmeteraol and spiriva. Hypertension. continue bisoprolol, Norvasc and spironolactone DVT prophylaxis: On Eliquis GI prophylaxis: Not needed VS,Fishbone, I+O VS, Fishbone, I+O Laboratory Tests 08/28/19 08:17 08/29/19 06:19 Vital Signs Date Time Temp Pulse Resp B/P (MAP) Pulse Ox O2 Delivery O2 Flow Rate FiO2 08/29/19 05:46 98.7 78 18 139/61 (87) 93 Room Air I&O- Last 24 Hours up to AM 08/29/19 06:00 Intake Total 950 ml Output Total 0 ml Balance 950 ml ASHLEY TYLER MD Aug 29, 2019 07:33
[2019-08-29 07:38] LABS: CALCIUM LEVEL 8.5 MG/DL (8.8-10.2); CREATININE FOR GFR 1.86 MG/DL (0.55-1.30); GLOMERULAR FILTRATION RATE 27.3 (>32); POTASSIUM SERUM 3.8 MEQ/L (3.5-5.1)
[2019-08-29] MEDS: TIOTROPIUM INHALER/CAPSULE (SPIRIVA) INH SCH (07:39)
[2019-08-29] MEDS: SALMETEROL DISKUS 50MCG INHALER (SEREVENT) INH SCH ×2 (07:39→20:10)
[2019-08-29] MEDS ORDERED: FAMOTIDINE 20 MG TAB PO SCH (09:00)
[2019-08-29] MEDS: FIBER-CON 625 MG TAB PO SCH (09:11)
[2019-08-29] MEDS: SPIRONOLACTONE 12.5MG PER 1/2 TABLET PO SCH (09:11)
[2019-08-29] MEDS: amLODIPine 5 MG TAB PO SCH (09:11)
[2019-08-29] MEDS: DOCUSATE SODIUM 100 MG CAP PO SCH ×2 (09:11→20:49)
[2019-08-29] MEDS: bisoproloL fumarate 5 MG TAB PO SCH (09:11)
[2019-08-29] MEDS: APIXABAN 2.5 MG TAB (ELIQUIS) PO SCH ×2 (09:11→20:49)
[2019-08-29] MEDS: SERTRALINE HCL 50 MG TAB PO SCH (09:12)
[2019-08-29] MEDS: FUROSEMIDE 20 MG TAB PO SCH (09:12)
[2019-08-29 14:31] VITALS: BP 135/97
[2019-08-29 20:00] VITALS: BP 144/65
[2019-08-29] MEDS: ATORVASTATIN 20 MG TAB PO SCH (20:49)
[2019-08-30 06:04] VITALS: BP 143/63
[2019-08-30 07:35] LABS: BASO # 0.1 10^3/uL (0.0-0.2); BASO % 0.8 % (0.0-1.0); EOS # 0.3 10^3/uL (0.0-0.5); EOS % 4.3 % (0.0-3.0); HEMATOCRIT 37.5 % (36.0-47.0); HEMOGLOBIN 11.9 g/dl (12.0-15.5); MEAN CORPUSCULAR HEMOGLOBIN 28.2 pg (27.0-33.0); MEAN CORPUSCULAR HGB CONC 31.7 g/dl (32.0-36.5); MEAN CORPUSCULAR VOLUME 88.9 fl (80.0-96.0); MONO # 0.6 10^3/uL (0.0-0.8); MONO % 8.4 % (0.0-5.0); NEUTROPHILS # 3.6 10^3/uL (1.5-8.5); NEUTROPHILS % 55.2 % (36.0-66.0); PLATELET COUNT, AUTOMATED 275 10^3/uL (150-450); RED BLOOD COUNT 4.22 10^6/uL (4.00-5.40); WHITE BLOOD COUNT 6.5 10^3/uL (4.0-10.0)
[2019-08-30] MEDS: TIOTROPIUM INHALER/CAPSULE (SPIRIVA) INH SCH (07:52)
[2019-08-30] MEDS: SALMETEROL DISKUS 50MCG INHALER (SEREVENT) INH SCH (07:52)
[2019-08-30 07:58] LABS: CALCIUM LEVEL 9.2 MG/DL (8.8-10.2); CREATININE FOR GFR 1.81 MG/DL (0.55-1.30); GLOMERULAR FILTRATION RATE 28.2 (>32); POTASSIUM SERUM 4.1 MEQ/L (3.5-5.1)
[2019-08-30] MEDS ORDERED: IRON SUCROSE 400 MG in NS 250 ML IV ONE (08:00)
[2019-08-30] MEDS: DOCUSATE SODIUM 100 MG CAP PO SCH (09:18)
[2019-08-30] MEDS: FUROSEMIDE 20 MG TAB PO SCH (09:18)
[2019-08-30] MEDS: APIXABAN 2.5 MG TAB (ELIQUIS) PO SCH (09:18)
[2019-08-30] MEDS: SPIRONOLACTONE 12.5MG PER 1/2 TABLET PO SCH (09:18)
[2019-08-30] MEDS: FIBER-CON 625 MG TAB PO SCH (09:18)
[2019-08-30] MEDS: SERTRALINE HCL 50 MG TAB PO SCH (09:18)
[2019-08-30 09:23] VITALS: BP 127/69
[2019-08-30] MEDS: bisoproloL fumarate 5 MG TAB PO SCH (09:23)
[2019-08-30] MEDS: amLODIPine 5 MG TAB PO SCH (09:23)
--- NOTE | 2019-08-30 15:33 | DS.PDOC ---
Discharge Summary General Date of Admission Aug 28, 2019 at 03:20 Date of Discharge 08/30/19 Discharge Summary PROCEDURES PERFORMED DURING STAY: [None]. DISCHARGE DIAGNOSES: Advancing dementia with hallucinations insomnia Recurrent Falls and generalized deconditioning. SECONDARY DIAGNOSIS: H/o CVA, COPD, hypertension, paroxysmal atrial fibrillation (on Eliquis), hypertension, iron deficiency anemia gets IV venofer , chronic kidney disease stage 4 , carotid endarterectomy, COMPLICATIONS/CHIEF COMPLAINT: Physical Deconditioning. HISTORY OF PRESENT ILLNESS: see history and physical HOSPITAL COURSE: 84-year-old female with past medical history of Dementia, h/o CVA, COPD, hypertension, paroxysmal atrial fibrillation (on Eliquis), hypertension, iron deficiency anemia and chronic kidney disease , carotid endarterectomy, presents after a fall. Patient is comfortable, reports left hip/low back pain due to the fall and repeatedly requested to go back home. Patient's rmaongbv-wl-pzd is at bedside, reports that patient is having progressively worsening dementia symptoms along with hallucinations. She still lives alone and pgusgoyc-ql-lmi is concerned about her safety at home and requesting placement for the patient. Fall/physical deconditioning Having progressive symptoms of dementia with hallucinations, lives alone advancing age and muscle deconditioning. NH placement. Advancing Dementia with wandering and hallucinations and difficulty in sleeping. difficulty in managing at home fci placement in locked unit. CKD stage 4. Baseline creatinine about 1.8 to 2.0 creatinine at baseline. History of CVA. Continue statin. Paroxysmal atrial fibrillation. Continue Eliquis for anticoagulation and metoprolol for rate control. COPD continue home inhalors. Hypertension. continue bisoprolol, Norvasc and spironolactone DISCHARGE MEDICATIONS: Please see below. ALLERGIES: Please see below. PHYSICAL EXAMINATION ON DISCHARGE: VITAL SIGNS: Please see below. GENERAL: No distress, alert, awake , sitting in chair. HEENT: Normocephalic, atraumatic, moist mucous membranes NECK: Supple CARDIOVASCULAR EXAMINATION: S1, S2, no murmurs RESPIRATORY EXAMINATION: Scattered rhonchi, no wheezing ABDOMINAL EXAMINATION: Soft, nontender, nondistended, positive bowel sounds EXTREMITIES: Trace lower extremity edema SKIN: No rash NEUROLOGICAL EXAMINATION: no focal deficits PSYCHIATRIC EXAMINATION: Calm and cooperative LABORATORY DATA: Please see below. ACTIVITY: [As tolerated]. DIET: As tolerated DISPOSITION: [facility]. DISCHARGE CONDITION: [Stable]. TIME SPENT ON DISCHARGE: 35 minutes. Vital Signs/I&Os Vital Signs Date Time Temp Pulse Resp B/P (MAP) Pulse Ox O2 Delivery O2 Flow Rate FiO2 08/30/19 09:23 71 08/30/19 09:23 127/69 08/30/19 06:04 96.8 18 95 Room Air I&O- Last 24 Hours up to 6 AM 08/30/19 07:00 Intake Total 1260 ml Output Total 0 ml Balance 1260 ml Laboratory Data Labs 24H Laboratory Tests 2 08/30/19 06:46: Immature Granulocyte % (Auto) 0.3, Neutrophils (%) (Auto) 55.2, Lymphocytes (%) (Auto) 31.0, Monocytes (%) (Auto) 8.4H, Eosinophils (%) (Auto) 4.3H, Basophils (%) (Auto) 0.8, Neutrophils # (Auto) 3.6, Lymphocytes # (Auto) 2.0, Monocytes # (Auto) 0.6, Eosinophils # (Auto) 0.3, Basophils # (Auto) 0.1, Nucleated Red Blood Cells % (auto) 0.0, Anion Gap 5L, Glomerular Filtration Rate 28.2L, Calcium Level 9.2 CBC/BMP Laboratory Tests 08/30/19 06:46 Microbiology Microbiology 08/30/19 Respiratory Virus Panel (PCR) (JOHN) - Final, Complete 08/28/19 Coronavirus COVID-19 PCR (JOHN), Received Pending 08/28/19 Urine Culture - Final, Complete Escherichia Coli 08/28/19 Blood Culture - Preliminary, Resulted No Growth after 48 hours. All Specime... 08/27/19 Blood Culture - Preliminary, Resulted No Growth after 48 hours. All Specime... Discharge Medications Scheduled Amlodipine Besylate (Amlodipine Besylate) 5 Mg Tablet, 5 MG PO DAILY, (Reported) Apixaban (Eliquis) 2.5 Mg Tab, 2.5 MG PO BID, (Reported) Atorvastatin Calcium (Lipitor) 80 Mg Tab, 80 MG PO QHS, (Reported) Bisoprolol Fumarate (Bisoprolol Fumarate) 5 Mg Tab, 5 MG PO DAILY, (Reported) Calcium Polycarbophil (Calcium Polycarbophil) 625 Mg Tablet, 625 MG PO DAILY, (Reported) Docusate Sodium (Colace) 100 Mg Cap, 100 MG PO BID, (Reported) Famotidine (Famotidine) 40 Mg Tablet, 40 MG PO DAILY, (Reported) Furosemide (Furosemide) 20 Mg Tab, 20 MG PO DAILY, (Reported) Iron Polysaccharide Complex (Poly-Iron) 150 Mg Cap, 150 MG PO DAILY, (Reported) Sertraline HCl (Sertraline HCl) 50 Mg Tablet, 50 MG PO DAILY, (Reported) Spironolactone (Spironolactone) 25 Mg Tab, 12.5 MG PO DAILY, (Reported) Umeclidinium Brm/Vilanterol Tr (Anoro Ellipta 62.5-25 Mcg INH) 1 Aer Aer, 1 PUFF INH DAILY, (Reported) Scheduled PRN Acetaminophen (Acetaminophen) 325 Mg Tablet, 650 MG PO Q6H PRN for PAIN, (Reported) Albuterol Sulfate (Proair Hfa) 108 Mcg/Act Aer, 2 PUFF INH QID PRN for SHORTNESS OF BREATH, (Reported) Allergies Coded Allergies: Penicillins (Verified Allergy, Intermediate, HIVES, 08/27/19) ASHLEY TYLER MD Aug 30, 2019 15:33
== END 2019-08-30 13:55 | DRG 884 ==
LOC: M ED 21:19 → M ED INP 08-28 03:20 → ENRESERV 08-28 03:38 → M MS5PR 08-28 04:27
PROVIDERS: ADMIT Internal Medicine; ATTEND Internal Medicine Nephrology
DX: F03.91 Unspecified dementia, unspecified severity, with behavioral disturbance (principal); N18.4 Chronic kidney disease, stage 4 (severe); R29.6 Repeated falls; I48.0 Paroxysmal atrial fibrillation; J44.9 Chronic obstructive pulmonary disease, unspecified; I12.9 Hypertensive chronic kidney disease with stage 1 through stage 4 chronic kidney disease, or unspecified chronic kidney disease; D50.9 Iron deficiency anemia, unspecified; M25.552 Pain in left hip; M54.5 Low back pain; Z86.73 Personal history of transient ischemic attack (TIA), and cerebral infarction without residual deficits; Z79.01 Long term (current) use of anticoagulants; Z79.899 Other long term (current) drug therapy; Z88.0 Allergy status to penicillin; Z87.891 Personal history of nicotine dependence; Z74.2 Need for assistance at home and no other household member able to render care; Z11.59 Encounter for screening for other viral diseases

== ENCOUNTER → 2019-09-03 | Outpatient (REF) | payer MEDICARE, BC ==
[~2019-09-03] MED LIST changes: +ACET1TAB55 PO; +AMLO5TAB6 PO; +CALC625T15 PO; +FAMO40TA3 PO; +OLAN2.5T25 PO; +SERT50TA29 PO
[2019-09-03 07:51] LABS: CALCIUM LEVEL 8.7 MG/DL (8.8-10.2); CREATININE FOR GFR 1.69 MG/DL (0.55-1.30); GLOMERULAR FILTRATION RATE 30.5 (>32); POTASSIUM SERUM 4.4 MEQ/L (3.5-5.1)
== END ==
LOC: SKLAB6 07:00
PROVIDERS: ATTEND Family Medicine
DX: D50.9 Iron deficiency anemia, unspecified (principal)

== ENCOUNTER 2019-09-06 12:22 | Outpatient (CLI) | payer MEDICARE, BC ==
[~2019-09-06] VITALS: Ht 152.4 cm; Wt 83.5 kg
[2019-09-06 12:30] VITALS: BP 158/72
[2019-09-06] MEDS ORDERED: EPINEPHrine INJ 1 MG/ML 1ML AMP IM PRN (13:30)
[2019-09-06] MEDS ORDERED: ALBUTEROL SULFATE 2.5 MG/0.5 ML INH NEB SOLN INH PRN (13:30)
[2019-09-06] MEDS ORDERED: NS 1,000 ML IV SCH (13:30)
[2019-09-06] MEDS ORDERED: methylPREDNISolone 125MG 2ML VIAL IV PRN (13:30)
[2019-09-06] MEDS ORDERED: diphenhydrAMINE 50MG/ML VIAL (J1200) IV PRN (13:30)
[2019-09-06] MEDS ORDERED: FERRIC CARBOXYMALTOSE INJ 750 MG in NS 250 ML IV ONE (14:00)
[2019-09-06 14:28] VITALS: BP 154/67
[2019-09-06] MEDS ORDERED: [UNRECOGNIZED DRUG - CODE] IV (14:31)
[2019-09-06 15:20] VITALS: BP 156/70
[2019-09-06 15:45] VITALS: BP 148/72
== END 2019-09-06 15:45 | disposition home or self-care (01) ==
LOC: M INFU 12:22
PROVIDERS: ATTEND Internal Medicine Nephrology
DX: D50.9 Iron deficiency anemia, unspecified (principal); Z88.0 Allergy status to penicillin
CPT/HCPCS: 96365; 96366; J1439

== ENCOUNTER 2019-09-13 08:20 | Outpatient (CLI) | payer MEDICARE, BC ==
[~2019-09-13] VITALS: Ht 152.4 cm; Wt 83.5 kg
[~2019-09-13 08:20] MED LIST changes: -AMLO10TA5 PO; +AMLO1TAB24 PO; +AMLO1TAB25 PO; -AMLO5TAB6 PO; -ASPI81TA85 PO; +ASPI81TA86 PO; +[UNRECOGNIZED DRUG - CODE] IV
[2019-09-13 08:30] VITALS: BP 125/54
[2019-09-13] MEDS ORDERED: FERRIC CARBOXYMALTOSE INJ 750 MG in NS 250 ML IV ONE (09:00)
[2019-09-13] MEDS ORDERED: ALBUTEROL SULFATE 2.5 MG/0.5 ML INH NEB SOLN INH PRN (09:00)
[2019-09-13] MEDS ORDERED: EPINEPHrine INJ 1 MG/ML 1ML AMP IM PRN (09:00)
[2019-09-13] MEDS ORDERED: diphenhydrAMINE 50MG/ML VIAL (J1200) IV PRN (09:00)
[2019-09-13] MEDS ORDERED: methylPREDNISolone 125MG 2ML VIAL IV PRN (09:00)
[2019-09-13] MEDS ORDERED: NS 1,000 ML IV SCH (09:00)
[2019-09-13 10:45] VITALS: BP 132/60
== END 2019-09-13 09:45 ==
LOC: M INFU 08:20
PROVIDERS: ATTEND Internal Medicine Nephrology
DX: D50.9 Iron deficiency anemia, unspecified (principal)
CPT/HCPCS: 96365; J1439

== ENCOUNTER → 2019-09-17 | Outpatient (REF) | payer MEDICARE, BC ==
[~2019-09-17] MED LIST changes: +AMLO10TA5 PO; -AMLO1TAB24 PO; -AMLO1TAB25 PO; +AMLO5TAB6 PO; +ASPI81TA85 PO; -ASPI81TA86 PO
[2019-09-17 08:16] LABS: CALCIUM LEVEL 8.6 MG/DL (8.8-10.2); CREATININE FOR GFR 1.81 MG/DL (0.55-1.30); GLOMERULAR FILTRATION RATE 28.2 (>32)
== END ==
LOC: SKLAB6 07:21
DX: N18.3 Chronic kidney disease, stage 3 (moderate) (principal); N27.0 Small kidney, unilateral; I70.1 Atherosclerosis of renal artery; R60.0 Localized edema; D50.9 Iron deficiency anemia, unspecified

== ENCOUNTER → 2019-09-19 | Outpatient (REF) | payer MEDICARE, BC ==
[2019-09-19 13:40] LABS: BASO # 0.1 10^3/uL (0.0-0.2); BASO % 0.8 % (0.0-1.0); EOS # 0.2 10^3/uL (0.0-0.5); EOS % 2.8 % (0.0-3.0); HEMATOCRIT 41.4 % (36.0-47.0); LYMPH # 1.7 10^3/uL (1.5-5.0); LYMPH % 23.8 % (24.0-44.0); MEAN CORPUSCULAR HEMOGLOBIN 28.5 pg (27.0-33.0); MEAN CORPUSCULAR HGB CONC 31.4 g/dl (32.0-36.5); MEAN CORPUSCULAR VOLUME 90.8 fl (80.0-96.0); MONO # 0.6 10^3/uL (0.0-0.8); MONO % 8.2 % (0.0-5.0); NEUTROPHILS # 4.6 10^3/uL (1.5-8.5); NEUTROPHILS % 64.1 % (36.0-66.0); PLATELET COUNT, AUTOMATED 249 10^3/uL (150-450); RED BLOOD COUNT 4.56 10^6/uL (4.00-5.40); WHITE BLOOD COUNT 7.2 10^3/uL (4.0-10.0)
[2019-09-19 14:11] LABS: ALBUMIN 3.4 GM/DL (3.2-5.2); CALCIUM LEVEL 9.5 MG/DL (8.8-10.2); CREATININE FOR GFR 1.88 MG/DL (0.55-1.30); MAGNESIUM LEVEL 2.4 MG/DL (1.8-2.4); PHOSPHORUS LEVEL 1.9 MG/DL (2.5-4.9)
[2019-09-19 14:37] LABS: APPEARANCE, URINE TURBID (CLEAR); BACTERIA, URINE AUTO 3+ (NEGATIVE); BILIRUBIN, URINE AUTO NEGATIVE (NEGATIVE); BLOOD, URINE BLOOD 1+ (NEGATIVE); COLOR, URINE YELLOW (YELLOW); GLUCOSE, URINE (UA) AUTO NEGATIVE (NEGATIVE); KETONE, URINE AUTO NEGATIVE (NEGATIVE); LEUKOCYTE ESTERASE, URINE AUTO 3+ (NEGATIVE); NITRITE, URINE AUTO POSITIVE (NEGATIVE); PROTEIN, URINE AUTO NEGATIVE (NEGATIVE); RBC, URINE AUTO 8 /HPF (0-3); SPECIFIC GRAVITY URINE AUTO 1.009 (1.002-1.035); SQUAMOUS EPITHELIAL CELL UR AU 4 /HPF (0-6); UROBILINOGEN, URINE AUTO 0.2 mg/dL (0.0-2.0); WBC, URINE AUTO TNTC /HPF (0-3)
[2019-09-19 18:01] LABS: APPEARANCE, URINE CLOUDY (CLEAR); BACTERIA, URINE AUTO 1+ (NEGATIVE); BILIRUBIN, URINE AUTO NEGATIVE (NEGATIVE); BLOOD, URINE BLOOD 1+ (NEGATIVE); COLOR, URINE YELLOW (YELLOW); GLUCOSE, URINE (UA) AUTO NEGATIVE (NEGATIVE); KETONE, URINE AUTO NEGATIVE (NEGATIVE); LEUKOCYTE ESTERASE, URINE AUTO 3+ (NEGATIVE); NITRITE, URINE AUTO POSITIVE (NEGATIVE); PROTEIN, URINE AUTO NEGATIVE (NEGATIVE); RBC, URINE AUTO 6 /HPF (0-3); SPECIFIC GRAVITY URINE AUTO 1.008 (1.002-1.035); SQUAMOUS EPITHELIAL CELL UR AU 1 /HPF (0-6); UROBILINOGEN, URINE AUTO 0.2 mg/dL (0.0-2.0); WBC, URINE AUTO TNTC /HPF (0-3)
== END ==
LOC: SKLAB6 07:00
DX: N18.3 Chronic kidney disease, stage 3 (moderate) (principal); N27.0 Small kidney, unilateral; I70.1 Atherosclerosis of renal artery; R60.0 Localized edema; D50.9 Iron deficiency anemia, unspecified; Z79.899 Other long term (current) drug therapy

== ENCOUNTER → 2019-10-29 | Outpatient (REF) | payer MEDICARE, BC ==
[~2019-10-29] MED LIST changes: -AMLO10TA5 PO; +AMLO1TAB24 PO; +AMLO1TAB25 PO; -AMLO5TAB6 PO; -ASPI81TA85 PO; +ASPI81TA86 PO
== END ==
LOC: CANPREREF → SKLAB6 12:57
DX: D64.9 Anemia, unspecified (principal); E53.9 Vitamin B deficiency, unspecified; Z79.899 Other long term (current) drug therapy; I25.10 Atherosclerotic heart disease of native coronary artery without angina pectoris

== ENCOUNTER → 2019-10-29 | Outpatient (REF) | payer MEDICARE, BC ==
[2019-12-18 18:50] LABS: HEMATOCRIT 40.3 % (36.0-47.0); HEMOGLOBIN 12.8 g/dl (12.0-15.5); MEAN CORPUSCULAR HGB CONC 31.8 g/dl (32.0-36.5); MEAN CORPUSCULAR VOLUME 91.4 fl (80.0-96.0); PLATELET COUNT, AUTOMATED 259 10^3/uL (150-450); RED BLOOD COUNT 4.41 10^6/uL (4.00-5.40); WHITE BLOOD COUNT 8.3 10^3/uL (4.0-10.0)
[2020-01-18 12:29] LABS: CHOLESTEROL LEVEL 120 MG/DL (<200); CHOLESTEROL RISK RATIO 2.181 (<5); HDL CHOLESTEROL 55 MG/DL (>40); IRON (FE) 55 UG/DL (50-170); LDL CHOLESTEROL 45 MG/DL (<100); NON-HDL-C 65 MG/DL; TRIGLYCERIDES LEVEL 99 MG/DL (<150); VITAMIN B12 LEVEL 426 PG/ML (247-911)
== END ==
LOC: SKLAB6 15:30
DX: D64.9 Anemia, unspecified (principal); E53.9 Vitamin B deficiency, unspecified; Z79.899 Other long term (current) drug therapy; I25.10 Atherosclerotic heart disease of native coronary artery without angina pectoris

== ENCOUNTER → 2019-10-31 | Outpatient (REF) | payer MEDICARE, BC | LOC: SKLAB6 10-26 19:30 | DX: N39.0 Urinary tract infection, site not specified (principal) ==

== ENCOUNTER → 2019-11-07 | Outpatient (REF) | payer MEDICARE, BC ==
[2019-11-07 11:15] LABS: PERCENT SATURATION 37.1 % (13.2-45.0)
== END ==
LOC: SKLAB6 07:30
DX: D64.9 Anemia, unspecified (principal)

== ENCOUNTER → 2019-11-21 | Outpatient (REF) | payer MEDICARE, BC ==
[2019-11-21 08:33] LABS: HEMATOCRIT 40.4 % (36.0-47.0); MEAN CORPUSCULAR HEMOGLOBIN 29.3 pg (27.0-33.0); MEAN CORPUSCULAR HGB CONC 32.2 g/dl (32.0-36.5); PLATELET COUNT, AUTOMATED 224 10^3/uL (150-450); RED BLOOD COUNT 4.44 10^6/uL (4.00-5.40); WHITE BLOOD COUNT 5.7 10^3/uL (4.0-10.0)
--- NOTE | 2019-12-04 15:10 | IPNPDOC ---
Text Note Date of Service The patient was seen on 12/02/19 and was revisit by me and Dr. Beyer on 12/05/2019. NOTE HPI: Patient is a 84 yo female with PMH of paroxysmal A. fib and CKD stage 3 who was admitted to [facility] on 08/30/2019. Patient continues to deny any dizziness, lightheadedness, recent fall, fever, chills, palpitation, chest pain, or abdominal pain. She denied hematochezia, melena, nausea, or vomiting. No events were reported. Objectives: Vitals: Temp 98.2F, BP 138/80, RR 18, HR 70, 93% on RA Physical exam: on 12/02/2019 General: Patient is alert and awake, not in acute distress. Patient is able to carry normal conversation with complete sentences but answers are inconsistent at times. She ambulates independently HEENT: Right carotid endarterectomy scar well healed. Head normocephalic, no conjunctiva injection, mucosa membrane moist Heart: RRR, no murmur or rubs Lungs: CTA b/l, no rales, wheezing, or rhonchi Abdomen: Soft, bowel sound aus in all 4 quadrants. No tenderness upon palpation Neuro: A&OX3, no obvious focal neurological deficits. Patient moving all 4 ex tremities. No aphasia or dysphasia noted. Extremities: no edema Assessment and Plan: 1. Paroxysmal A. fib. Patient is on Eliquis 2.5mg BID. Currently in RRR. Patient also has pacemaker in place as she had history of complete heart block. Patient follows with cardiology. Continue Bisoprolol 5mg QD and Eliquis 2.5mg BID 2. History of complete heart block. Pacemaker/defibrillator in place. Patient's vitals are stable and without symptoms. Follows with cardiology every 6 months and has pacemaker check every year. Next appointment is Jan 24, 2020. 3. History of CVA. History of CVA in 2016 with no residual. Patient ambulates without difficulty on Eliquis for A. fib. Continue Atorvastatin. On Eliquis for A. fib 4. HTN. BP stable. Patient follows cardiology. Continue Amlodipine 5mg QD, bisoprolol 5mg QD, and Atorvastatin 80mg QD. D/C Spironolactone last visit. As patient's BP was stable after d/c spironolactone last visit without signs of fluid overload, will d/c lasix. 5. GERD. History of GERD. As patient also has iron deficiency anemia which may be 2/2 chronic GI bleed but refuses colonoscopy, will continue patient on Famotidine. 6. Hyperlipidemia. Continues Atorvastatin 80mg QD. Lipid panel ordered 10/26/2019 but no result available for review, re-ordered today. 7. Iron deficiency anemia, stable. No history of colonoscopy or upper endoscopy on file or reported. Hg=13 and Hct=40.4 on 11/21/2019 and H&H=12.1 and 38.1 on 08/27/2019. H&H=11.9 and 37.5 on September 03, 2019. 11/21/2019 iron studies showed iron=64, UOXQ=740, and transferrin%=36%. Iron=41, GOAJ=149, ferritin=20, and transferrin saturation=14.1 in August 2019. Patient is noted to receive iron infusion on 09/13/2019 and 09/06/2019 with a history of iron deficiency anemia; it was noted that prior iron infusion was ordered through [facility] since [facility] admission. It was noted that patient had been receiving iron infusion since 2016 with prior iron infusion ordered by nephrology. Called both Emergency contact listed Marci and Marcel, and they both reported they do not believe patient had a colonoscopy prior. Discussed with HCP(reported by both Marci and Marcel to be patient's health care proxy), and that endoscopes were declined. CBC and iron panel ordered. Continue Iferex 150QD and Famotidine 20mg QD. Patient does not need iron infusion at this time as iron deficiency anemia is currently stable with oral iron supplement. 8. CKD stage 3, likely 2/2 of right renal artery stenosis and right renal atrophy. Patient follows with nephrology. Orders to obtain nephrology records were placed. 9. History of CHF. Patient follows cardiology. Echo in 2016 showed " a degree of impaired diastolic dysfunction." Patient does not appear to be fluid overload. BP stable without any edema or dyspnea/cough. . Spironolactone d/c last visit. Patient's BP stable and no signs of fluid overload. D/c Lasix 20mg QD. 10. MDD. Mood appears to be stable. Decrease Sertraline from 50mg QD to 25mg QD in 10/2019. Patient's mood appears to be stable. 11. Alzheimer's disease with delusional disorders. No fall reported. Patient's mental status stable. Patient is able to ambulate without assist. Provide safe environment. R/o reversible causes of dementia such as hypothyroidism, syphilis, and B12 deficiency: B12 wnl as of 09/2019; VDRL, and TSH re-ordered 12. COPD. Sable. Patient denies any dyspnea. Patient sat 93% on RA. Cont Anoro 1 puff QD. Cont albuterol 2 puff QID PRN. 13. HCP form. Son Marcel reported he is the HCP and has a copy of HCP form and will fax a copy when he finds it. Re-ordered to obtain HCP. 14. Lack of capacity form. Patient is determined to be lack of capacity d/t dementia and inconsistent answer. Lack of capacity form on file. 15. Patient's MOLST form on file. Patient's DNR/DNI, limited intervention, no feeding tube. Trial of IV fluid. Use antibiotics. GME ATTESTATION GME ATTESTATION My faculty preceptor for this patient encounter was physically present during the encounter and was fully available. All aspects of the patient interview, examination, medical decision making process, and medical care plan development were reviewed and approved by the faculty preceptor. The faculty preceptor is aware and concurs with the plan as stated in the body of this note and will attest to such by his/her cosignature. ARETHA CERVANTES DO Dec 02, 2019 10:38
== END ==
LOC: SKLAB6 07:00
DX: D64.9 Anemia, unspecified (principal)

== ENCOUNTER → 2020-01-01 | Outpatient (REF) | payer MEDICARE, BC | LOC: SKLAB6 08:09 | DX: E78.5 Hyperlipidemia, unspecified (principal) ==

== ENCOUNTER → 2020-01-02 | Outpatient (REF) | payer MEDICARE, BC ==
[2020-01-02 09:45] LABS: FREE T4 0.76 NG/DL (0.76-1.46); PHOSPHORUS LEVEL 3.5 MG/DL (2.5-4.9)
== END ==
LOC: SKLAB6 06:00
DX: E03.9 Hypothyroidism, unspecified (principal)

== ENCOUNTER → 2020-01-28 | Outpatient (REF) | payer MEDICARE, BC ==
[2020-01-28 09:14] LABS: HEMATOCRIT 44.1 % (36.0-47.0); HEMOGLOBIN 13.6 g/dl (12.0-15.5); MEAN CORPUSCULAR HEMOGLOBIN 28.8 pg (27.0-33.0); MEAN CORPUSCULAR HGB CONC 30.8 g/dl (32.0-36.5); MEAN CORPUSCULAR VOLUME 93.4 fl (80.0-96.0); PLATELET COUNT, AUTOMATED 239 10^3/uL (150-450); RED BLOOD COUNT 4.72 10^6/uL (4.00-5.40); WHITE BLOOD COUNT 5.4 10^3/uL (4.0-10.0)
[2020-01-28 10:45] LABS: PERCENT SATURATION 38.3 % (13.2-45.0)
== END ==
LOC: SKLAB6 01-22 07:00
DX: D50.9 Iron deficiency anemia, unspecified (principal)

== ENCOUNTER → 2020-01-29 | Outpatient (REF) | payer MEDICARE, BC ==
[~2020-01-29] MED LIST changes: +LISI10TA22 PO; -LISI10TA4 PO; +MIRT-60 PO; +MIRT-62 PO; -REME15TA PO; -REME30TA PO
== END ==
LOC: SKLAB6 01-28 13:12 → EDSTATUS 03-05 12:18
DX: Z20.828 Contact with and (suspected) exposure to other viral communicable diseases (principal)

== ENCOUNTER → 2020-02-05 | Outpatient (REF) | payer MEDICARE, BC | LOC: SKLAB6 08:00 | PROVIDERS: ATTEND Internal Medicine | DX: Z20.828 Contact with and (suspected) exposure to other viral communicable diseases (principal) ==

== ENCOUNTER → 2020-02-12 | Outpatient (REF) | payer MEDICARE, BC ==
[2020-02-12 15:41] LABS: INFLUENZA A AMPLIFICATION NEGATIVE (NEGATIVE); INFLUENZA B AMPLIFICATION NEGATIVE (NEGATIVE)
== END ==
LOC: SKLAB6 08:00
PROVIDERS: ATTEND Internal Medicine
DX: Z20.828 Contact with and (suspected) exposure to other viral communicable diseases (principal)
CPT/HCPCS: 87502; U0003

== ENCOUNTER → 2020-02-19 | Outpatient (REF) | payer MEDICARE, BC ==
[~2020-02-19] MED LIST changes: -LISI10TA22 PO; +LISI10TA4 PO
--- NOTE | 2020-02-20 06:35 | IPNPDOC ---
Text Note Date of Service The patient was seen on 02/19/20 by me, and again seen by Dr. Mckeon and me on 02/20/2020. NOTE The patient was seen on 02/19/20 by me, and again seen by Dr. Mckeon and me on 02/20/2020. Room 61-1 HPI: Patient was examined at bedside. Patient continues to deny any dizziness, lightheadedness, recent fall, palpitation, chest pain, or abdominal pain. She denied hematochezia, melena, nausea, or vomiting. It was noted that patient had decreased ADL in bathing and OT was ordered on 02/05/2020. No other events were reported. She denies any pain in the right foot and it was noted that patient did not report any pain in her right foot plantar region. Objectives: Vitals from 02/19/2020: Temp 97.3F, BP 128/72, HR 71, RR 18, 97% on RA Physical exam: on 02/19/2020 General: Pt is laying on the bed at the time of the evaluation. Patient is alert and awake, not in acute distress. Patient is able to carry normal conversation with complete sentences but answers are inconsistent at times. HEENT: Right carotid endarterectomy scar well healed. Head normocephalic, no conjunctiva injection, mucosa membrane moist Heart: RRR, no murmur or rubs Lungs: CTA b/l, no rales, wheezing, or rhonchi Abdomen: Soft, bowel sound aus in all 4 quadrants. No tenderness upon palpation Neuro: A&OX3, no obvious focal neurological deficits. Patient moving all 4 extremities. No aphasia or dysphasia noted. Extremities: no obvious edema noted. Right plantar foot hyperkeratinization about [id number] large without drainage Assessment and Plan: 1. Paroxysmal A. fib with AV pacer. Diagnostic report from cardiology record noted event sine July 16, 2018 to July 19, 2019 showed atrial tachycardia detections with 117 AMS episodes. Confirmed with patient's sack cleaning hand Dr. Beauchamp that patient has atrial fibrillation. Patient is on Eliquis 2.5mg BID. Currently in RRR. AV pacemaker in place. Patient follows with cardiology. Continue Bisoprolol 5mg QD and Eliquis 2.5mg BID. Confirmed with Dr. Beauchamp' office that patient's AV pacemaker report confirmed a. fib activity. 2. History of complete heart block. Patient has an AV pacer in place. Patient's vitals are stable and without symptoms noted. Follows with cardiology every 6 months and has pacemaker check every year. Next cardiology appointment is Jan 24, 2020. 3. History of CVA. Prior head CT 08/2017 showed old right temporal parietal lobe infarction and old left basal ganglia lacunar infarction. 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 History of CVA in 2016 with no residual. Patient ambulates without difficulty on Eliquis for A. fib. Continue At orvastatin. On Eliquis for A. fib. It was noted that Aspirin 81mg QD was ordered on 01/01/2020 due to history of CVA. 4. HTN, renovascular. BP stable. Patient follows cardiology. Lasix and spironolactone d/c on previous visits. Continue Amlodipine 5mg QD, bisoprolol 5mg QD, and Atorvastatin 80mg QD. 5. GERD. History of GERD. As patient also has iron deficiency anemia which may b e 2/2 chronic GI bleed but refuses colonoscopy, will decrease patient's Famotidine from 40mg QD to 20mg as her H&H has been stable. 6. Hyperlipidemia. Continues Atorvastatin 80mg QD. Lipid panel ordered 10/26/2019 but no result available for review. It was noted that lipid panel order was d/c in Dec 2019. 7. Iron deficiency anemia, stable. No history of colonoscopy or upper endoscopy on file or reported. H&H=13.6 and 44.1 on 01/28/2020, and Hg=13 and Hct=40.4 on 11/21/2019. 11/21/2019 iron studies showed iron=64, SRXF=855, and transferrin%=36%. Iron=41, PTZA=800, ferritin=20, and transferrin saturation=14.1 in August 2019. Patient is noted to receive iron infusion on 09/13/2019 and 09/06/2019 with a history of iron deficiency anemia; it was noted that prior iron infusion was ordered through [facility] since [facility] admission. It was noted that patient had been receiving iron infusion since 2016 with prior iron infusion ordered by nephrology. Called both Emergency contact listed Marci and Marcel, and they both reported they do not believe patient had a colonoscopy prior. Discussed with HCP(reported by both Marci and Marcel to be patient's heal th care proxy), and that endoscopes were declined. It was noted that pt's occult blood stool was negative, and tissue transglutamin IgA was neg. Continue Famotidine 20mg QD. Patient does not need iron infusion at this time as iron def iciency anemia is currently stable. 01/28/2020 iron=75 and imqgdapg=518, will recheck iron panel in Mar 2020. Discontinue polysaccharide iron 150mg QD as her H&H and iron studies did not exhibit iron deficiency at this time. 8. CKD stage 3, likely 2/2 of right renal artery stenosis and right renal atrophy. Patient follows with nephrology with next follow up appt noted to be. Nephrology medical records from 08/29/2019 and 11/28/2019 were on file. Patient has upcoming appt with nephrology at 10:40AM on Apr 09, 2020. PTH from nephrology note on 08/29/2019 showed TSH=66.5. It was noted that Calcitrol 0.25mg had been started. 9. History of diastolic dysfunction. Patient follows cardiology. Echo in 2016 showed " a degree of impaired diastolic dysfunction." Patient does not appear to be fluid overload. BP stable without any edema or dyspnea/cough. Spironolactone d/c last visit. Patient's BP stable and no signs of fluid overload. Lasix 20mg QD d/c in 11/2019, no obvious edema noted. 10. MDD. Mood appears to be stable. Decrease Sertraline from 50mg QD to 25mg QD in 10/2019. Patient's mood appears to be stable, no acute changes reported. D/c Sertraline 25mg QD. 11. Alzheimer's disease/vascular dementia. No fall reported. Patient's mental status stable. Patient is able to ambulate without assist. Provide safe environment. R/o reversible causes of dementia such as hypothyroidism, syphilis, and B12 deficiency: B12 wnl as of 09/2019; VDRL was re-ordered but it was noted that VDRL order was d/c. TSH and free T4 was noted to be in subclinical hypothyroidism range and patient was noted to be started on levothyroxine 50mcg QD. It was noted patient was referred to OT for decreased ADL and required total assistance for bathing and dressing. Per OT documentation, patient prior showering and bathing level was level 4:supervision and verbal cues and/or touch steady, and current level is a 3: partial vs mo derate assistance: helpers lift or support limb or trunk; for lower body dressing prior level was 4, and current level is level 3. Per OT, usp goal is for the patient to be supervised with minimal assistance through self care training and therapeutic activities/exercises. 12. COPD. Sable. Patient denies any dyspnea. Patient sat 95% on RA. Cont Anoro 1 puff QD. Cont albuterol 2 puff QID PRN. 13. Right renal atrophy 2/2 chronic renal artery stenosis. Pt was noted to be not a candidate of stenting. 14. Renal artery stenosis with atherosclerosis of renal artery, chronic. Cont atorvastatin 80mg QD. 15. Subclinical hypothyroidism, new. TSH=10.2 in Dec, 2019 while prior TSH within normal range in Oct, 2019. Free T4 within normal range. It was noted by floor nurse that the decision was to continue levothyroxine 50mcg QD with free T4 level within normal range. 16. HCP form. Marlon Rdo is the HCP. HCP on file signed with witness signed. 17. Lack of capacity form. Patient is determined to be lack of capacity d/t dementia and inconsistent answer. Lack of capacity form on file. 18. Patient's MOLST form on file. Patient's DNR/DNI, limited intervention, no feeding tube. Trial of IV fluid. Use antibiotics. 19. Right plantar corn. [place] noted on right plantar region last visit, no more tenderness reported. Start 17% salicylic topical gel BID to be applied on right plantar corn region until resolution. Improved compared to prior, continue salicylic topical gel. 20. Influenza immunization administered 12/23/2019. Level 2, need some help: eating, need some help Supervision or touching assistance: Function transfer from wheel chair to bed /toilet, mobility, toileting hygiene, upper body dressing, lower body dressing, Oral Hygiene Independent: eating Partial/moderate assistance:shower/bath self Diet: level 4, FEROZ, thin liquids ARETHA CERVATNES DO Feb 19, 2020 17:57
== END ==
LOC: SKLAB6 10:00
DX: Z20.828 Contact with and (suspected) exposure to other viral communicable diseases (principal)

== ENCOUNTER → 2020-02-26 | Outpatient (REF) | payer MEDICARE, BC ==
[2020-02-26 12:33] LABS: INFLUENZA A AMPLIFICATION NEGATIVE (NEGATIVE); INFLUENZA B AMPLIFICATION NEGATIVE (NEGATIVE)
== END ==
LOC: SKLAB6 12:29
DX: Z20.828 Contact with and (suspected) exposure to other viral communicable diseases (principal)
CPT/HCPCS: 87502; U0003

== ENCOUNTER → 2020-03-04 | Outpatient (REF) | payer BC, MEDICARE, OTHER | LOC: SKLAB6 09:00 | DX: Z20.828 Contact with and (suspected) exposure to other viral communicable diseases (principal) ==

== ENCOUNTER → 2020-03-11 | Outpatient (REF) | payer BC, MEDICARE, OTHER | LOC: SKLAB6 10:00 | DX: Z20.828 Contact with and (suspected) exposure to other viral communicable diseases (principal) ==

== ENCOUNTER → 2020-03-18 | Outpatient (REF) | payer MEDICARE ==
--- NOTE | 2020-03-19 06:58 | IPNPDOC ---
Text Note Date of Service The patient was seen on 03/18/2020 by me, and again seen by Dr. Mckeon and me on 03/19/2020. NOTE The patient was seen on 03/18/2020 by me, and again seen by Dr. Mckeon and me on 03/19/2020. Room [facility]- HPI: Patient was examined at bedside. Patient continues to deny any dizziness, lightheadedness, recent fall, palpitation, chest pain, or abdominal pain. She denied hematochezia, melena, nausea, or vomiting. Patient reported pain in her right foot at where the corn-like lesion is at. Objectives: Vitals Temp 97.9F, BP 132/74, HR 60, RR 18, 94% on RA Physical exam: on 03/18/2020 General: Pt is sitting on the bed at the time of the evaluation. Patient is alert and awake, not in acute distress. Patient is able to carry conversation with complete sentences but answers are inconsistent at times. HEENT: Right carotid endarterectomy scar well healed. Head normocephalic, no conjunctiva injection, mucosa membrane moist Heart: RRR, no murmur or rubs Lungs: CTA b/l, no rales, wheezing, or rhonchi Abdomen: Soft, bowel sound aus in all 4 quadrants. No tenderness upon palpation Neuro: A&OX3, no obvious focal neurological deficits. Patient moving all 4 extremities. No aphasia or dysphasia noted. Extremities: no obvious edema noted. Right plantar foot hyperkeratinization about [id number] large without drainage or bleeding Assessment and Plan: 1. Paroxysmal A. fib with AV pacer. Diagnostic report from cardiology record noted event sine July 16, 2018 to July 19, 2019 showed atrial tachycardia detections with 117 AMS episodes. Confirmed with patient's concrete laborer Dr. Beauchamp that patient has atrial fibrillation. Patient is on Eliquis 2.5mg BID. Currently in RRR. AV pacemaker in place. Patient follows with cardiology. Continue Bisoprolol 5mg QD and Eliquis 2.5mg BID. Confirmed with Dr. Beauchamp' office that patient's AV pacemaker report confirmed a. fib activity. 2. History of complete heart block. Patient has an AV pacer in place. Patient's vitals are stable and without symptoms noted. Follows with cardiology every 6 months and has pacemaker check every year. Next cardiology appointment is in July 2020. 3. History of CVA. Prior head CT 08/2017 showed old right temporal parietal lobe infarction and old left basal ganglia lacunar infarction. 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 History of CVA in 2016 with no residual. Patient ambulates without difficulty on Eliquis for A. fib. Continue Atorvastatin. On Eliquis for A. fib. It was noted that Aspirin 81mg QD was ordered on 01/01/2020 due to history of CVA. Pt is currently on Atorvastatin 80mg QD, however as she is currently 84 years old, will discuss with family member regarding mutual-decision for statin use for secondary-degree prevention. Phone call made to patient's son/HCP Marcel and reached voicemail, left voicemail and asked patient's son to return phone call. 4. HTN, renovascular. BP stable. Patient follows cardiology. Lasix and spironolactone d/c on previous visits. Continue Amlodipine 5mg QD, bisoprolol 5mg QD, and Atorvastatin 80mg QD. 5. GERD. History of GERD. As patient also has iron deficiency anemia which may be 2/2 chronic GI bleed but refuses colonoscopy, will decrease patient's Famotidine from 40mg QD to 20mg as her H&H has been stable. 6. Hyperlipidemia. Lipid panel ordered 10/26/2019 but no result available for review. It was noted that lipid panel order was d/c in Dec 2019. Pt is currently on Atorvastatin 80mg QD, however as she is currently 84 years old, will discuss with family member regarding mutual-decision for statin use for secondary-degree prevention. 7. Iron deficiency anemia, stable. No history of colonoscopy or upper endoscopy on file or reported. H&H=13.6 and 44.1 on 01/28/2020, and Hg=13 and Hct=40.4 on 11/21/2019. 11/21/2019 iron studies showed iron=64, NKCY=620, and transferrin%=36%. Iron=41, LAQW=376, ferritin=20, and transferrin saturation=14.1 in August 2019. Patient is noted to receive iron infusion on 09/13/2019 and 09/06/2019 with a history of iron deficiency anemia; it was noted that prior iron infusion was ordered through [facility] since [facility] admission. It was noted that patient had been receiving iron infusion since 2016 with prior iron infusion ordered by nephrology. Called both Emergency contact listed Marci and Marcel, and they both reported they do not believe patient had a colonoscopy prior. Discussed with HCP(reported by both Marci and Marcel to be patient's health care proxy), and that endoscopes were declined. It was noted that pt's occult blood stool was negative, and tissue transglutamin IgA was neg. Continue Famotidine 20mg QD. Patient does not need iron infusion at this time as iron deficiency anemia is currently stable. 01/28/2020 iron=75 and skyoisgv=172, will recheck iron panel in Mar 2020. Discontinue polysaccharide iron 150mg QD as her H&H and iron studies did not exhibit iron deficiency at this time. 8. CKD stage 3, likely 2/2 of right renal artery stenosis and right renal atrophy. Patient follows with nephrology with next follow up appt noted to be. Nephrology medical records from 08/29/2019 and 11/28/2019 were on file. Patient has upcoming appt with nephrology at 10:40AM on Apr 09, 2020. PTH from nephrology note on 08/29/2019 showed TSH=66.5. It was noted that Calcitrol 0.25mg had been started. 9. History of diastolic dysfunction. Patient follows cardiology. Echo in 2015 showed " a degree of impaired diastolic dysfunction." Patient does not appear to be fluid overload. BP stable without any edema or dyspnea/cough. Spironolactone d/c last visit. Patient's BP stable and no signs of fluid overload. Lasix 20mg QD d/c in 11/2019, no obvious edema noted. 10. MDD. Mood appears to be stable. Decrease Sertraline from 50mg QD to 25mg QD in 10/2019. Patient's mood appears to be stable, no acute changes reported. Sertraline 25mg QD d/c last month. 11. Alzheimer's disease/vascular dementia. No fall reported. Patient's mental status stable. Patient is able to ambulate without assist. Provide safe environment. R/o reversible causes of dementia such as hypothyroidism, syphilis, and B12 deficiency: B12 wnl as of 09/2019; VDRL was re-ordered but it was noted that VDRL order was d/c. TSH and free T4 was noted to be in subclinical hypothyroidism range and patient was noted to be started on levothyroxine 50mcg QD. It was noted patient was referred to OT for decreased ADL and required total assistance for bathing and dressing. Per OT documentation, patient prior showering and bathing level was level 4:supervision and verbal cues and/or touch steady, and current level is a 3: partial vs moderate assistance: helpers lift or support limb or trunk; for lower body abdulkadir ssing prior level was 4, and current level is level 3. Per OT, local intermodal truck driver goal is for the patient to be supervised with minimal assistance through self care training and therapeutic activities/exercises. 12. COPD. Sable. Patient denies any dyspnea. Patient sat 95% on RA. Cont Anoro 1 puff QD. Cont albuterol 2 puff QID PRN. 13. Right renal atrophy 2/2 chronic renal artery stenosis. Pt was noted to be not a candidate of stenting. 14. Renal artery stenosis with atherosclerosis of renal artery, chronic. Cont atorvastatin 80mg QD. 15. Subclinical hypothyroidism, new. TSH=10.2 in Dec, 2019 while prior TSH within normal range in Oct, 2019. Free T4 within normal range. It was noted by floor nurse that the decision was to continue levothyroxine 50mcg QD with free T4 level within normal range. 16. HCP form. Son Marcel is the HCP. HCP on file signed with witness signed. 17. Lack of capacity form. Patient is determined to be lack of capacity d/t dementia and inconsistent answer. Lack of capacity form on file. 18. Patient's MOLST form on file. Patient's DNR/DNI, limited intervention, no feeding tube. Trial of IV fluid. Use antibiotics. 19. Right plantar corn. [place] noted on right plantar region last visit, no more tenderness reported. Start 17% salicylic topical gel BID to be applied on right plantar corn region since Jan 21. Previously patient reported the corn it improved compared to prior. The plantar corn is still present. Will d/c the 17% topical gel. [employer] consult ordered. 20. Influenza immunization administered 12/23/2019. Level 2, need some help: eating, need some help Supervision or touching assistance: Function transfer from wheel chair to bed/toilet, mobility, toileting hygiene, upper body dressing, lower body dressing, Oral Hygiene Independent: eating Partial/moderate assistance:shower/bath self Diet: level 4, FEROZ, thin liquids ARETHA CERVANTES DO Mar 18, 2020 22:57
== END ==
LOC: SKLAB6 10:00
PROVIDERS: ATTEND Internal Medicine
DX: Z11.52 Encounter for screening for COVID-19 (principal)

== ENCOUNTER → 2020-03-25 | Outpatient (REF) | payer MEDICARE, BC, OTHER | LOC: SKLAB6 10:00 | PROVIDERS: ATTEND Internal Medicine | DX: Z20.822 Contact with and (suspected) exposure to COVID-19 (principal) ==

== ENCOUNTER → 2020-04-01 | Outpatient (REF) | payer MEDICARE, BC, OTHER ==
[~2020-04-01] MED LIST changes: +LISI10TA22 PO; -LISI10TA4 PO
== END ==
LOC: SKLAB6 09:00
PROVIDERS: ATTEND Internal Medicine
DX: Z20.822 Contact with and (suspected) exposure to COVID-19 (principal)

== ENCOUNTER → 2020-04-08 | Outpatient (REF) | payer MEDICARE, BC, OTHER ==
[~2020-04-08] MED LIST changes: -LISI10TA22 PO; +LISI10TA4 PO
[2020-04-08 11:54] LABS: INFLUENZA A AMPLIFICATION NEGATIVE (NEGATIVE); INFLUENZA B AMPLIFICATION NEGATIVE (NEGATIVE)
== END ==
LOC: SKLAB6 09:00
PROVIDERS: ATTEND Internal Medicine
DX: Z20.822 Contact with and (suspected) exposure to COVID-19 (principal)
CPT/HCPCS: 87502; U0003

== ENCOUNTER → 2020-04-08 | Outpatient (REF) | payer MEDICARE, BC, OTHER ==
[2020-04-08 14:01] LABS: BASO # 0.1 10^3/uL (0.0-0.2); BASO % 0.7 % (0.0-1.0); EOS # 0.2 10^3/uL (0.0-0.5); EOS % 2.9 % (0.0-3.0); HEMATOCRIT 42.5 % (36.0-47.0); HEMOGLOBIN 13.3 g/dl (12.0-15.5); LYMPH # 1.8 10^3/uL (1.5-5.0); LYMPH % 24.6 % (24.0-44.0); MEAN CORPUSCULAR HGB CONC 31.3 g/dl (32.0-36.5); MEAN CORPUSCULAR VOLUME 92.6 fl (80.0-96.0); MONO # 0.5 10^3/uL (0.0-0.8); MONO % 6.3 % (0.0-5.0); NEUTROPHILS # 4.8 10^3/uL (1.5-8.5); NEUTROPHILS % 65.2 % (36.0-66.0); PLATELET COUNT, AUTOMATED 259 10^3/uL (150-450); RED BLOOD COUNT 4.59 10^6/uL (4.00-5.40); WHITE BLOOD COUNT 7.3 10^3/uL (4.0-10.0)
[2020-04-08 14:08] LABS: APPEARANCE, URINE CLOUDY (CLEAR); BACTERIA, URINE AUTO 1+ (NEGATIVE); BILIRUBIN, URINE AUTO NEGATIVE (NEGATIVE); BLOOD, URINE BLOOD 1+ (NEGATIVE); COLOR, URINE YELLOW (YELLOW); GLUCOSE, URINE (UA) AUTO NEGATIVE (NEGATIVE); KETONE, URINE AUTO NEGATIVE (NEGATIVE); LEUKOCYTE ESTERASE, URINE AUTO 3+ (NEGATIVE); MUCUS, URINE SMALL (NEGATIVE); NITRITE, URINE AUTO POSITIVE (NEGATIVE); PROTEIN, URINE AUTO NEGATIVE (NEGATIVE); RBC, URINE AUTO 16 /HPF (0-3); SPECIFIC GRAVITY URINE AUTO 1.011 (1.002-1.035); SQUAMOUS EPITHELIAL CELL UR AU 2 /HPF (0-6); UROBILINOGEN, URINE AUTO 0.2 mg/dL (0.0-2.0); WBC, URINE AUTO TNTC /HPF (0-3)
[2020-04-08 14:40] LABS: ALBUMIN 3.2 GM/DL (3.2-5.2); CALCIUM LEVEL 9.4 MG/DL (8.8-10.2); CREATININE FOR GFR 1.42 MG/DL (0.55-1.30); GLOMERULAR FILTRATION RATE 37.3 (>32); PHOSPHORUS LEVEL 3.7 MG/DL (2.5-4.9); POTASSIUM SERUM 4.1 MEQ/L (3.5-5.1)
[2020-04-08 14:49] LABS: PTH INTACT 55.7 PG/ML (18.5-88.0)
== END ==
LOC: SKLAB6 08:00
DX: Z79.899 Other long term (current) drug therapy (principal)

== ENCOUNTER → 2020-04-15 | Outpatient (REF) | payer MEDICARE, BC, OTHER | LOC: SKLAB6 10:00 | PROVIDERS: ATTEND Internal Medicine | DX: Z20.822 Contact with and (suspected) exposure to COVID-19 (principal) ==

== ENCOUNTER → 2020-04-22 | Outpatient (REF) | payer MEDICARE, BC, OTHER ==
[~2020-04-22] MED LIST changes: +LISI10TA22 PO; -LISI10TA4 PO
== END ==
LOC: SKLAB6 09:00
PROVIDERS: ATTEND Internal Medicine
DX: Z20.822 Contact with and (suspected) exposure to COVID-19 (principal)

== ENCOUNTER → 2020-04-24 | Outpatient (REF) | payer MEDICARE, BC, OTHER ==
[2020-04-24 15:49] LABS: APPEARANCE, URINE CLOUDY (CLEAR); BACTERIA, URINE AUTO 3+ (NEGATIVE); BILIRUBIN, URINE AUTO NEGATIVE (NEGATIVE); BLOOD, URINE BLOOD 1+ (NEGATIVE); COLOR, URINE YELLOW (YELLOW); GLUCOSE, URINE (UA) AUTO NEGATIVE (NEGATIVE); KETONE, URINE AUTO NEGATIVE (NEGATIVE); LEUKOCYTE ESTERASE, URINE AUTO 3+ (NEGATIVE); MUCUS, URINE SMALL (NEGATIVE); NITRITE, URINE AUTO POSITIVE (NEGATIVE); PROTEIN, URINE AUTO 1+ mg/dL (NEGATIVE); RBC, URINE AUTO 5 /HPF (0-3); SPECIFIC GRAVITY URINE AUTO 1.013 (1.002-1.035); SQUAMOUS EPITHELIAL CELL UR AU 1 /HPF (0-6); UROBILINOGEN, URINE AUTO 0.2 mg/dL (0.0-2.0); WBC, URINE AUTO TNTC /HPF (0-3)
== END ==
LOC: SKLAB6 13:00
DX: R41.82 Altered mental status, unspecified (principal)

== ENCOUNTER → 2020-04-29 | Outpatient (REF) | payer MEDICARE, BC, OTHER | LOC: SKLAB6 10:00 | PROVIDERS: ATTEND Internal Medicine | DX: Z11.52 Encounter for screening for COVID-19 (principal) ==

== ENCOUNTER → 2020-04-30 | Outpatient (REF) | payer MEDICARE, BC, OTHER ==
[2020-04-30 09:15] LABS: BASO # 0.1 10^3/uL (0.0-0.2); BASO % 1.5 % (0.0-1.0); EOS # 0.3 10^3/uL (0.0-0.5); HEMATOCRIT 42.1 % (36.0-47.0); HEMOGLOBIN 13.3 g/dl (12.0-15.5); LYMPH # 1.7 10^3/uL (1.5-5.0); LYMPH % 27.5 % (24.0-44.0); MEAN CORPUSCULAR HEMOGLOBIN 29.6 pg (27.0-33.0); MEAN CORPUSCULAR HGB CONC 31.6 g/dl (32.0-36.5); MEAN CORPUSCULAR VOLUME 93.8 fl (80.0-96.0); MONO # 0.5 10^3/uL (0.0-0.8); MONO % 8.6 % (2.0-8.0); NEUTROPHILS # 3.6 10^3/uL (1.5-8.5); NEUTROPHILS % 58.2 % (36.0-66.0); PLATELET COUNT, AUTOMATED 241 10^3/uL (150-450); RED BLOOD COUNT 4.49 10^6/uL (4.00-5.40); WHITE BLOOD COUNT 6.2 10^3/uL (4.0-10.0)
[2020-04-30 09:49] LABS: CALCIUM LEVEL 9.1 MG/DL (8.8-10.2); CREATININE FOR GFR 1.36 MG/DL (0.55-1.30); GLOMERULAR FILTRATION RATE 39.2 (>32); POTASSIUM SERUM 4.4 MEQ/L (3.5-5.1)
== END ==
LOC: SKLAB6 08:00
DX: N93.9 Abnormal uterine and vaginal bleeding, unspecified (principal)

== ENCOUNTER → 2020-05-05 | Outpatient (REF) | payer MEDICARE, BC, OTHER ==
[2020-05-05 12:51] LABS: AMORPHOUS SEDIMENT SMALL (NEGATIVE); APPEARANCE, URINE HAZY (CLEAR); BACTERIA, URINE AUTO NEGATIVE (NEGATIVE); BILIRUBIN, URINE AUTO NEGATIVE (NEGATIVE); BLOOD, URINE BLOOD 3+ (NEGATIVE); COLOR, URINE YELLOW (YELLOW); GLUCOSE, URINE (UA) AUTO NEGATIVE (NEGATIVE); KETONE, URINE AUTO NEGATIVE (NEGATIVE); LEUKOCYTE ESTERASE, URINE AUTO TRACE (NEGATIVE); NITRITE, URINE AUTO NEGATIVE (NEGATIVE); PROTEIN, URINE AUTO 1+ mg/dL (NEGATIVE); RBC, URINE AUTO 140 /HPF (0-3); SPECIFIC GRAVITY URINE AUTO 1.012 (1.002-1.035); SQUAMOUS EPITHELIAL CELL UR AU 1 /HPF (0-6); UROBILINOGEN, URINE AUTO 0.2 mg/dL (0.0-2.0); WBC, URINE AUTO 4 /HPF (0-3)
[2020-05-05 13:48] LABS: HEMATOCRIT 40.1 % (36.0-47.0); HEMOGLOBIN 12.5 g/dl (12.0-15.5); MEAN CORPUSCULAR HEMOGLOBIN 29.3 pg (27.0-33.0); MEAN CORPUSCULAR HGB CONC 31.2 g/dl (32.0-36.5); MEAN CORPUSCULAR VOLUME 94.1 fl (80.0-96.0); PLATELET COUNT, AUTOMATED 222 10^3/uL (150-450); RED BLOOD COUNT 4.26 10^6/uL (4.00-5.40); WHITE BLOOD COUNT 6.6 10^3/uL (4.0-10.0)
[2020-05-05 14:10] LABS: CALCIUM LEVEL 8.8 MG/DL (8.8-10.2); CREATININE FOR GFR 1.4 MG/DL (0.55-1.30); POTASSIUM SERUM 4.5 MEQ/L (3.5-5.1)
== END ==
LOC: SKLAB6 08:00
DX: R31.9 Hematuria, unspecified (principal)

== ENCOUNTER → 2020-05-06 | Outpatient (CLI) | payer MEDICARE, OTHER ==
[~2020-05-06] MED LIST changes: +ASPI-569 PO; -ASPI81TAEC PO
--- NOTE | 2020-05-06 15:05 | REP ---
INDICATION: HEMATURIA W/ POST MENOPAUSAL BLEEDING. COMPARISON: Comparison urinary tract sonography imaging June 10, 2015.. TECHNIQUE: Urinary tract sonography. FINDINGS: Scanning at the level of the urinary bladder shows no abnormality. Renal cortical echogenicity pattern is increased particularly on the right consistent with chronic medical renal disease. The right kidney is quite atrophic. Cortical echogenicity pattern in the left kidney is somewhat increased as well.. There is no evidence of hydronephrosis, cyst, mass, or calculus in either kidney. The right kidney measures 6.6 x 2.9 x 2.9 cm. Left renal dimensions are 10.7 x 3.8 x 4.8 cm. IMPRESSION: Marked atrophy right kidney. No hydronephrosis seen on either side. Increased cortical echogenicity pattern consistent with chronic medical renal disease. No renal mass or calculus seen by ultrasound.. <Electronically signed by Reyes Cheema > 05/06/20 [id number]
--- NOTE | 2020-05-06 15:08 | REP ---
INDICATION: HEMATURIA W/ POST MENOPAUSAL BLEEDING. COMPARISON: None. TECHNIQUE: Transabdominal scanning is obtained. Transvaginal scanning was omitted due to our impression of decreased mental capacity. FINDINGS: Uterine dimensions are normal at 5.9 x 2.1 x 4.0 cm. Endometrial echo is 1.4 cm thick and centrally placed. No free fluid is seen in the cul-de-sac. Visualized bladder trujillo are smooth. The endometrium is abnormally thickened and there is a hyperechoic nodular area in its fundus measuring 0.98 x 0.87 x 0.13 cm. No myometrial mass is appreciated. Visualized bladder trujillo are smooth.. Neither ovary could be directly visualized transabdominally. There is no evidence of adnexal mass or free fluid. No cyst is seen.. . IMPRESSION: Heterogeneous thickened endometrium possible endometrial polyp. Rule out endometrial neoplasia versus hyperplasia. Endometrial malignancy cannot be excluded. Neither ovary could be directly visualized.. <Electronically signed by Reyes Cheema > 05/06/20 [id number]
== END ==
LOC: M RAD 14:03
PROVIDERS: ATTEND Nurse Practitioner Adult Health
DX: R31.9 Hematuria, unspecified (principal); N95.0 Postmenopausal bleeding; N26.1 Atrophy of kidney (terminal)

== ENCOUNTER → 2020-05-06 | Outpatient (REF) | payer MEDICARE, BC, OTHER ==
[~2020-05-06] MED LIST changes: -ASPI-569 PO; +ASPI81TAEC PO
== END ==
LOC: SKLAB6 10:00
PROVIDERS: ATTEND Internal Medicine
DX: Z20.822 Contact with and (suspected) exposure to COVID-19 (principal)

== ENCOUNTER → 2020-05-20 | Outpatient (REF) | payer MEDICARE, OTHER ==
[~2020-05-20] MED LIST changes: +ASPI-569 PO; -ASPI81TAEC PO; -CALC625T15 PO; +CALC625T3 PO
--- NOTE | 2020-05-21 07:08 | IPNPDOC ---
Text Note Date of Service The patient was seen by me on 05/20/[address] Monge and on 05/21/2020 NOTE The patient was seen by on 05/20/2020, and again seen by Dr. Monge and sabine pires on 05/21/2020. Room 611-1 HPI: Patient was examined at bedside. Patient reported lightheadedness and dizziness. Denies recent fall, palpitation, chest pain, or abdominal pain, melena, dysuria, urinary urgency, or urinary frequency. She reported that she has hematochezia and hematuria. Denies having any vaginal bleeding. No event was reported. Patient denies pain in her right foot where the corn-like lesion was at. Objectives: Vitals Temp 96.2F, BP 122/88, HR 70, RR 20, 96% on RA Physical exam: on 05/20/2020 General: Patient is alert and awake, not in acute distress. Patient is able to carry conversation with complete sentences but answers are inconsistent. HEENT: Right carotid endarterectomy scar well healed. Head normocephalic, no conjunctiva injection, mucosa membrane moist Heart: RRR, no murmur or rubs Lungs: CTA b/l, no rales, wheezing, or rhonchi Abdomen: Soft, bowel sound aus in all 4 quadrants. No tenderness upon palpation : no suprapubic tenderness, no CVA tenderness bilaterally Neuro: A&OX3, no obvious focal neurological deficits. Patient moving all 4 extremities. CN2-12 grossly intact. No aphasia or dysphasia noted. Extremities: no obvious edema noted. Previous plantar wart healed without openings or lesions Assessment and Plan: 1. Paroxysmal A. fib with AV pacer. Diagnostic report from cardiology record noted event sine July 16, 2018 to July 19, 2019 showed atrial tachycardia detections with 117 AMS episodes. Confirmed with patient's change attendant Dr. Beauchamp that patient has atrial fibrillation. Patient is on Eliquis 2.5mg BID. Currently in RRR. AV pacemaker in place. Patient follows with cardiology. Continue Bisoprolol 5mg QD and Eliquis 2.5mg BID. Confirmed with Dr. Beauchamp' office that patient's AV pacemaker report confirmed a. fib activity. 2. History of complete heart block. Patient has an AV pacer in place. Patient's vitals are stable and without symptoms noted. Follows with cardiology every 6 months and has pacemaker check every year. Next cardiology appointment is in July 2020. 3. History of CVA. Prior head CT 08/2017 showed old right temporal parietal lobe infarction and old left basal ganglia lacunar infarction. 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 History of CVA in 2016 with no residual. Patient ambulates without difficulty on Eliquis for A. fib. Continue Atorvastatin. On Eliquis for A. fib. It was noted that Aspirin 81mg QD was ordered on 01/01/2020 due to history of CVA. Pt is currently on Atorvastatin 80mg QD, however as she is currently 84 years old, discussed with family member regarding mutual-decision for statin use for secondary-degree prevention. Phone call made to patient's son/HCP Marcel and Marcel confirmed that he would like to patient to continue Atorvastatin 80mg daily. 4. HTN, renovascular. BP stable. Patient follows cardiology. Lasix and spironolactone d/c on previous visits. Continue Amlodipine 5mg QD, bisoprolol 5mg QD, and Atorvastatin 80mg QD. 5. GERD. History of GERD. As patient also has iron deficiency anemia which may be 2/2 chronic GI bleed but refuses colonoscopy, patient's Famotidine was decreased from 40mg QD to 20mg prior as her H&H has been stable. 6. Hyperlipidemia. Lipid panel ordered 10/26/2019 but no result available for review. It was noted that lipid panel order was d/c in Dec 2019. Discussed with patient's son/HCP Marcel and he would like patient to be continued on current regim Atorvastatin 80mg QD mutual-decision for statin use for secondary-degree prevention. 7. Iron deficiency anemia, stable. No history of colonoscopy or upper endoscopy on file or reported.Hg roughly stable, 12.9 in 02/2020, 13.3 in 03/2020, 12.5 in 04/2020. showed iron=64, OVIE=158, and transferrin%=36%. Iron=41, KNXV=017, ferritin=20, and transferrin saturation=14.1 in August 2019. Patient is noted to receive iron infusion on 09/13/2019 and 09/06/2019 with a history of iron deficiency anemia; it was noted that prior iron infusion was ordered through [facility] since [facility] admission. It was noted that patient had been receiving iron infusion since 2016 with prior iron infusion ordered by nephrology. Called both Emergency contact listed Marci and Marcel, and they both reported they do not be lieve patient had a colonoscopy prior. Discussed with HCP(reported by both Marci and Marcel to be patient's health care proxy), and that endoscopes were declined. It was noted that pt's occult blood stool was negative, and tissue transglutamin IgA was neg. Continue Famotidine 20mg QD. Patient does not need iron infusion at this time as iron deficiency anemia is currently stable. 01/28/2020 iron=75 and ioxtrtxb=720. Discontinue polysaccharide iron 150mg QD prior as her H&H and iron studies did not exhibit iron deficiency at this time. Iron and TIBC were ordered on 05/11/2020 but were not done, iron panel re-ordered on 05/13/2020 has been moved to July 2020. Hg has been roughly stable 12.9 in 02/2020, 13.3 in 03/2020 then 12.5 in 04/2020. Recheck CBC. 8. CKD stage 3, likely 2/2 of right renal artery stenosis and right renal atrophy. Patient follows with nephrology with next follow up appt noted to be. Nephrology medical records from 08/29/2019 and 11/28/2019 were on file. BMP 04/2020 stable compared to prior with creatinine=1.4 and GFR=38. It was noted that Calcitrol 0.25mg had been started prior. PTH from 03/2020 and Ca from 04/2020 were within normal range. 9. History of diastolic dysfunction. Patient follows cardiology. Echo in 2016 showed " a degree of impaired diastolic dysfunction." Patient does not appear to be fluid overload. BP stable without any edema or dyspnea/cough. Spironolactone d/c last visit. Patient's BP stable and no signs of fluid overload. Lasix 20mg QD d/c in 11/2019, no obvious edema noted. 10. MDD. Mood appears to be stable. Decrease Sertraline from 50mg QD to 25mg QD in 10/2019. Patient's mood appears to be stable, no acute changes reported. Sertraline 25mg QD d/c in Feb 2020. It was noted that she was restarted on Citalopram 20mg QD in 05/03 for depression. 11. Alzheimer's disease/vascular dementia. No fall reported. Patient's mental status stable. Patient is able to ambulate without assist. Provide safe environment. R/o reversible causes of dementia such as hypothyroidism, syphilis, and B12 deficiency: B12 wnl as of 09/2019; VDRL was re-ordered but it was noted that VDRL order was d/c. It was noted that patient was started on Depakote 125mg QD in 05/03 for dementia. TSH and free T4 was noted to be in subclinical hypothyroidism range and patient was noted to be started on levothyroxine 50mcg QD. It was noted patient was referred to OT for decreased ADL and required total assistance for bathing and dressing. Per OT documentation, patient prior showering and bathing level was level 4:supervision and verbal cues and/or touch steady, and current level is a 3: partial vs moderate assistance: helpers lift or support limb or trunk; for lower body dressing prior level was 4, and current level is level 3. Per OT, skein straightener goal is for the patient to be supervised with minimal assistance through self care training and therapeutic activities/exercises. 12. COPD. Sable. Patient denies any dyspnea. Patient sat 95% on RA. Cont Anoro 1 puff QD. Cont albuterol 2 puff QID PRN. 13. Right renal atrophy 2/2 chronic renal artery stenosis. Pt was noted to be not a candidate of stenting. 14. Renal artery stenosis with atherosclerosis of renal artery, chronic. Cont atorvastatin 80mg QD. 15. Subclinical hypothyroidism, new. TSH=10.2 in Dec, 2019 while prior TSH within normal range in Oct, 2019. Free T4 within normal range. It was noted by floor nurse that the decision was to continue levothyroxine 50mcg QD with free T4 level within normal range. 16. HCP form. Son Marcel is the HCP. HCP on file signed with witness signed. 17. Lack of capacity form. Patient is determined to be lack of capacity d/t dementia and inconsistent answer. Lack of capacity form on file. 18. Patient's MOLST form on file. Patient's DNR/DNI, limited intervention, no feeding tube. Trial of IV fluid. Use antibiotics. 20. Hematuria may be due to UTI vs anticoagulation use vs trauma 2/2 straight cath vs confounded by possible vaginal bleeding. CBC showed Hg=12.5. Urine 04/24/2020 showed E-coli and strep agalactiae, and macrobid 100mg BID for 7 days was ordered on 04/24/2020. UA 05/05/2020 straight cath showed 140 RBC, 3+ blood, trace leukocyte esterase, 4 WBC, small amorphorous sediments; urine culture showed only 9000CFU colonies of strep. Agalactiae likely due to bacteruria. Patient's renal US showed " Marked atrophy right kidney. No hydronephrosis seen on either side. Increased cortical echogenicity pattern consistent with chronic medical renal disease. No renal mass or calculus seen by ultrasound." Likely slow bleeding as H&H is stable, will repeat CBC. Will reach out to patient's health care proxy regarding pursuing cystoscopy to evaluate cause of bleed. Repeat UA with reflex urine culture and sensitivity ordered placed through phone on 05/21/2020. Called patient's HCP Marcel at [phone] in attempt to discuss about the condition and wish for further work-up and possible treatment and reached voicemail; left voicemail to ask him to return phone call to [facility]; will attempt to call again later. 21. Possible vaginal bleed. US ordered on 05/06/2020. Patient's pelvis US showed "heterogeneous thickened endometrium possible endometrial polyp. Rule out endometrial neoplasia versus hyperplasia. Endometrial malignancy cannot be excluded. Neither ovary could be directly visualized" Will reach patient's health care proxy regarding decision to further pursue malignancy work up vs monitoring. Called patient's HCP Marcel at [phone] in attempt to discuss about the condition and wish for further work-up and possible treatment and reached voicemail; left voicemail to ask him to return phone call to [facility]; will attempt to call again later. 22. Influenza immunization administered 12/23/2019. Level 2, need some help: eating, need some help Supervision or touching assistance: Function transfer from wheel chair to bed/toilet, mobility, toileting hygiene, upper body dressing, lower body dressing, Oral Hygiene Independent: eating Partial/moderate assistance:shower/bath self Diet: level 4, FEROZ, thin liquids ARETHA CERVANTES DO May 20, 2020 22:40 Gianna Monge DO May 28, 2020 08:47
== END ==
LOC: SKLAB6 12:04
PROVIDERS: ATTEND Internal Medicine
DX: Z20.822 Contact with and (suspected) exposure to COVID-19 (principal)

== ENCOUNTER → 2020-05-21 | Outpatient (REF) | payer MEDICARE, OTHER ==
--- NOTE | 2020-05-14 07:08 | IPNPDOC ---
Text Note Date of Service The patient was seen on 05/12/20. NOTE The patient was seen on 05/13/2020 by me, and again seen by Dr. Mckeon and me on . Room 611-1 HPI: Patient was examined at bedside. Patient continues to deny any dizziness, lightheadedness, recent fall, palpitation, chest pain, or abdominal pain, m chiquita, hematochezia, dysuria, urinary urgency, or urinary frequency. She reported her hematuria is improving. Denies having any vaginal bleeding. No event was reported. Patient denies pain in her right foot where the corn-like lesion was at. Objectives: Vitals Temp 97.8F, BP 132/72, HR 60, RR 18, 99% on RA Physical exam: on 05/13/2020 General: Pt is lying on the bed at the time of the evaluation. Patient is alert and awake, not in acute distress. Patient is able to carry conversation with complete sentences but answers are inconsistent. HEENT: Right carotid endarterectomy scar well healed. Head normocephalic, no conjunctiva injection, mucosa membrane moist Heart: RRR, no murmur or rubs Lungs: CTA b/l, no rales, wheezing, or rhonchi Abdomen: Soft, bowel sound aus in all 4 quadrants. No tenderness upon palpation : no suprapubic tenderness, no CVA tenderness bilaterally Neuro: A&OX3, no obvious focal neurological deficits. Patient moving all 4 extremities. No aphasia or dysphasia noted. Extremities: no obvious edema noted. Previous plantar wart healed without openings or lesions Assessment and Plan: 1. Paroxysmal A. fib with AV pacer. Diagnostic report from cardiology record noted event sine July 16, 2018 to July 19, 2019 showed atrial tachycardia detections with 117 AMS episodes. Confirmed with patient's head insulation board saw operator Dr. Beauchamp that patient has atrial fibrillation. Patient is on Eliquis 2.5mg BID. Currently in RRR. AV pacemaker in place. Patient follows with cardiology. Continue Bisoprolol 5mg QD and Eliquis 2.5mg BID. Confirmed with Dr. Beauchamp' office that patient's AV pacemaker report confirmed a. fib activity. 2. History of complete heart block. Patient has an AV pacer in place. Patient's vitals are stable and without symptoms noted. Follows with cardiology every 6 months and has pacemaker check every year. Next cardiology appointment is in July 2020. 3. History of CVA. Prior head CT 08/2017 showed old right temporal parietal lobe infarction and old left basal ganglia lacunar infarction. Brain MRI 11/2015 sh owed occlusion of the right MCA. History of CVA in 2016 with no residual. Patient ambulates without difficulty on Eliquis for A. fib. Continue Atorvastatin. On Eliquis for A. fib. It was noted that Aspirin 81mg QD was ordered on 01/01/2020 due to history of CVA. Pt is currently on Atorvastatin 80mg QD, however as she is currently 84 years old, discussed with family member regarding mutual-decision for statin use for secondary-degree prevention. Phone call made to patient's son/HCP Marcel and Marcel confirmed that he would like to patient to continue Atorvastatin 80mg daily. 4. HTN, renovascular. BP stable. Patient follows cardiology. Lasix and spironolactone d/c on previous visits. Continue Amlodipine 5mg QD, bisoprolol 5mg QD, and Atorvastatin 80mg QD. 5. GERD. History of GERD. As patient also has iron deficiency anemia which may be 2/2 chronic GI bleed but refuses colonoscopy, patient's Famotidine was decreased from 40mg QD to 20mg prior as her H&H has been stable. 6. Hyperlipidemia. Lipid panel ordered 10/26/2019 but no result available for review. It was noted that lipid panel order was d/c in Dec 2019. Discussed with patient's son/HCP Marcel and he would like patient to be continued on current regim Atorvastatin 80mg QD mutual-decision for statin use for secondary-degree prevention. 7. Iron deficiency anemia, stable. No history of colonoscopy or upper endoscopy on file or reported.Hg roughly stable, 12.9 in 02/2020, 13.3 in 03/2020, 12.5 in 04/2020. showed iron=64, IJUL=071, and transferrin%=36%. Iron=41, OYYD=025, ferritin=20, and transferrin saturation=14.1 in August 2019. Patient is noted to receive iron infusion on 09/13/2019 and 09/06/2019 with a history of iron deficiency anemia; it was noted that prior iron infusion was ordered through [facility] since [facility] admission. It was noted that patient had been receiving iron infusion since 2016 with prior iron infusion ordered by nephrology. Called both Emergency contact listed Marci and Marcel, and they both reported they do not believe patient had a colonoscopy prior. Discussed with HCP(reported by both Marci and Marcel to be patient's health care proxy), and that endoscopes were declined. It was noted that pt's occult blood stool was negative, and tissue transglutamin IgA was neg. Continue Famotidine 20mg QD. Patient does not need iron infusion at this time as iron deficiency anemia is currently stable. 01/28/2020 iron=75 and ycmydchs=803. Discontinue polysaccharide iron 150mg QD prior as her H&H and iron studies did not exhibit iron deficiency at this time. Iron and TIBC were ordered on 05/11/2020 but were not done, iron panel re- ordered on 05/13/2020. Hg has been roughly stable 12.9 in 02/2020, 13.3 in 03/2020 then 12.5 in 04/2020 8. CKD stage 3, likely 2/2 of right renal artery stenosis and right renal atrophy. Patient follows with nephrology with next follow up appt noted to be. Nephrology medical records from 08/29/2019 and 11/28/2019 were on file. It was noted that Calcitrol 0.25mg had been started prior. PTH from 03/2020 and Ca from 04/2020 were within normal range. 9. History of diastolic dysfunction. Patient follows cardiology. Echo in 2016 showed " a degree of impaired diastolic dysfunction." Patient does not appear to be fluid overload. BP stable without any edema or dyspnea/cough. Spironolactone d/c last visit. Patient's BP stable and no signs of fluid overload. Lasix 20mg QD d/c in 11/2019, no obvious edema noted. 10. MDD. Mood appears to be stable. Decrease Sertraline from 50mg QD to 25mg QD in 10/2019. Patient's mood appears to be stable, no acute changes reported. Sertraline 25mg QD d/c in Feb 2020. It was noted that she was restarted on Citalopram 20mg QD in 05/03 for depression. 11. Alzheimer's disease/vascular dementia. No fall reported. Patient's mental status stable. Patient is able to ambulate without assist. Provide safe environment. R/o reversible causes of dementia such as hypothyroidism, sy philis, and B12 deficiency: B12 wnl as of 09/2019; VDRL was re-ordered but it was noted that VDRL order was d/c. It was noted that patient was started on Depakote 125mg QD in 05/03 for dementia. TSH and free T4 was noted to be in subclinical hypothyroidism range and patient was noted to be started on levothyroxine 50mcg QD. It was noted patient was referred to OT for decreased ADL and required total assistance for bathing and dressing. Per OT documentation, patient prior showering and bathing level was level 4:supervision and verbal cues and/or touch steady, and current level is a 3: partial vs moderate assistance: helpers lift or support limb or trunk; for lower body dressing prior level was 4, and current level is level 3. Per OT, shelter goal is for the patient to be supervised with minimal assistance through self care training and therapeutic activities/exercises. 12. COPD. Sable. Patient denies any dyspnea. Patient sat 95% on RA. Cont Anoro 1 puff QD. Cont albuterol 2 puff QID PRN. 13. Right renal atrophy 2/2 chronic renal artery stenosis. Pt was noted to be not a candidate of stenting. 14. Renal artery stenosis with atherosclerosis of renal artery, chronic. Cont atorvastatin 80mg QD. 15. Subclinical hypothyroidism, new. TSH=10.2 in Dec, 2019 while prior TSH within normal range in Oct, 2019. Free T4 within normal range. It was noted by floor nurse that the decision was to continue levothyroxine 50mcg QD with free T4 level within normal range. 16. HCP form. Marlon Rod is the HCP. HCP on file signed with witness signed. 17. Lack of capacity form. Patient is determined to be lack of capacity d/t dementia and inconsistent answer. Lack of capacity form on file. 18. Patient's MOLST form on file. Patient's DNR/DNI, limited intervention, no feeding tube. Trial of IV fluid. Use antibiotics. 20. Hematuria may be due to UTI vs anticoagulation use vs trauma 2/2 straight cath vs confounded by possible vaginal bleeding. CBC showed Hg=12.5. Urine 04/24/2020 showed E-coli and strep agalactiae, and macrobid 100mg BID for 7 days was ordered on 04/24/2020. UA 05/05/2020 straight cath showed 140 RBC, 3+ blood, trace leukocyte esterase, 4 WBC, small amorphorous sediments; urine culture showed only 9000CFU colonies of strep. Agalactiae likely due to bacteruria. Patient's renal US showed " Marked atrophy right kidney. No hydronephrosis seen on either side. Increased cortical echogenicity pattern consistent with chronic medical renal disease. No renal mass or calculus seen by ultrasound." Likely slow bleeding as H&H is stable, will repeat CBC in June 2020. 21. Possible vaginal bleed. US ordered on 05/06/2020. Patient's pelvis US showed "heterogeneous thickened endometrium possible endometrial polyp. Rule out endometrial neoplasia versus hyperplasia. Endometrial malignancy cannot be excluded. Neither ovary could be directly visualized" Due to patient's age, will reach patient's health care proxy regarding decision to further pursue malignancy work up vs monitoring. 22. Influenza immunization administered 12/23/2019. Level 2, need some help: eating, need some help Supervision or touching assistance: Function transfer from wheel chair to bed/toilet, mobility, toileting hygiene, upper body dressing, lower body dressing, Oral Hygiene Independent: eating Partial/moderate assistance:shower/bath self Diet: level 4, FEROZ, thin liquids ARETHA CERVANTES DO May 12, 2020 02:01
[2020-05-21 09:03] LABS: HEMATOCRIT 39.3 % (36.0-47.0); HEMOGLOBIN 12.5 g/dl (12.0-15.5); MEAN CORPUSCULAR HEMOGLOBIN 29.6 pg (27.0-33.0); MEAN CORPUSCULAR HGB CONC 31.8 g/dl (32.0-36.5); MEAN CORPUSCULAR VOLUME 92.9 fl (80.0-96.0); PLATELET COUNT, AUTOMATED 253 10^3/uL (150-450); RED BLOOD COUNT 4.23 10^6/uL (4.00-5.40); WHITE BLOOD COUNT 6.4 10^3/uL (4.0-10.0)
== END ==
LOC: SKLAB6 09:00
DX: Z86.2 Personal history of diseases of the blood and blood-forming organs and certain disorders involving the immune mechanism (principal)

== ENCOUNTER → 2020-05-22 | Outpatient (CLI) | payer MEDICARE, OTHER ==
[~2020-05-22] MED LIST changes: +CALC625T15 PO; -CALC625T3 PO
[2020-05-22 22:23] LABS: APPEARANCE, URINE CLOUDY (CLEAR); BACTERIA, URINE AUTO 1+ (NEGATIVE); BILIRUBIN, URINE AUTO NEGATIVE (NEGATIVE); BLOOD, URINE BLOOD 3+ (NEGATIVE); COLOR, URINE AMBER (YELLOW); GLUCOSE, URINE (UA) AUTO NEGATIVE (NEGATIVE); KETONE, URINE AUTO NEGATIVE (NEGATIVE); LEUKOCYTE ESTERASE, URINE AUTO 2+ (NEGATIVE); MUCUS, URINE SMALL (NEGATIVE); NITRITE, URINE AUTO NEGATIVE (NEGATIVE); PROTEIN, URINE AUTO 2+ mg/dL (NEGATIVE); RBC, URINE AUTO TNTC /HPF (0-3); SQUAMOUS EPITHELIAL CELL UR AU 21 /HPF (0-6); WBC, URINE AUTO 68 /HPF (0-3)
== END ==
LOC: SKLAB6 21:53
DX: R30.0 Dysuria (principal)

== ENCOUNTER → 2020-05-27 | Outpatient (REF) | payer MEDICARE, OTHER | LOC: SKLAB6 09:00 | PROVIDERS: ATTEND Internal Medicine | DX: Z20.822 Contact with and (suspected) exposure to COVID-19 (principal) ==

== ENCOUNTER → 2020-06-12 | Outpatient (REF) | payer MEDICARE, OTHER | LOC: SKLAB6 08:10 | PROVIDERS: ATTEND Internal Medicine | DX: Z20.822 Contact with and (suspected) exposure to COVID-19 (principal) ==

== ENCOUNTER → 2020-06-25 | Outpatient (REF) | payer MEDICARE, OTHER ==
[~2020-06-25] MED LIST changes: -CALC625T15 PO; +CALC625T3 PO
--- NOTE | 2020-06-25 08:52 | SKHPN ---
[facility] Progress Note Date of Service/Time Date: Jun 25, 2020 Progress Note Patient was seen by me on 06/21/2020 and again by me and Dr. Monge on 06/25/2020. Room 611-1 HPI: Patient was examined at bedside. It was reported that patient's hematuria had resolved and there was no vaginal bleeding. Patient does not answer to questions when being asked but was able to speak in complete sentences, stating that she likes to read news papers everyday. It was reported patient has increased aggression compared to in Apr 2020. Objectives: Vitals Temp 97.7F, BP 106/74, HR 72, RR 17, 94% on RA Physical exam: on 06/21/2020 General: Patient is alert and awake, not in acute distress. Patient is able to speak in complete sentences but does not answer questions. Mildly pale HEENT: Right carotid endarterectomy scar well healed. Head normocephalic, no conjunctiva injection, mucosa membrane moist Heart: RRR, no murmur or rubs Lungs: CTA b/l, no rales, wheezing, or rhonchi Abdomen: Soft, bowel sound aus in all 4 quadrants. No tenderness upon palpation Neuro: A&OX3, no obvious focal neurological deficits. Patient moving all 4 extremities. No aphasia or dysphasia noted. Assessment and Plan: 1. Paroxysmal A. fib with AV pacer. Confirmed with Dr. Beauchamp' office that patient's AV pacemaker report confirmed a. fib activity based on diagnostic report. Currently in RRR. AV pacemaker in place. Patient follows with cardiology. Continue Bisoprolol 5mg QD for rate control and Eliquis 2.5mg BID for anticoagulation. Patient appears to be hemodynamically compensated. 2. History of complete heart block. AV pacer in place. Patient's vitals are stable and without symptoms noted. Follows with cardiology every 6 months and has pacemaker check every year. Next cardiology appointment is in July 2020. 3. 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 No residual deficits. Patient ambulates without difficulty on Eliquis for A. fib. On Aspirin 81mg QD 4. HTN, renovascular. BP stable. Continue Amlodipine 5mg QD, bisoprolol 5mg QD, and Atorvastatin 80mg QD. 5. GERD. Patient also has history of iron deficiency anemia but refuses colonoscopy. On Famotidine 20mg. 6. Hyperlipidemia. HCP Marcel would like to continue Atorvastatin 80mg QD for secondary-degree prevention 7. Iron deficiency anemia, resolved. No history of colonoscopy or upper endoscopy Apparently refused by family. ISABELA resolved currently not on Fe. Recheck CBC as patient appears mildly pale 8. Hematochezia. Patient reported hematochezia. Patient's HCP had refused colonoscopy. Recheck CBC 8. CKD stage 3, likely 2/2 of right renal artery stenosis and right renal atrophy. Follows with nephrology, last BMP 04/2020 stable. It was noted that Calcitrol 0.25mg had been started prior. PTH from 03/2020 and Ca from 04/2020 were within normal range 9. History of diastolic dysfunction. Patient follows cardiology. Echo in 2015 showed " a degree of impaired diastolic dysfunction." Patient appears compensated on exam. 10. MDD. Mood appears to be stable. On Citalopram 20mg QD 11. Alzheimer's disease/vascular dementia. Reversible causes of dementia r/o. It was noted that patient was started on Depakote 125mg QD in 05/03 for dementia. No falls in the past 30 days.Patient was reported to have increase aggression in the evening after being started on Depakote. Discontinue Depakote and start Seroquel 25mg QHS 12. COPD. Stable. Patient sat 94% on RA. Cont Anoro 1 puff QD. Cont albuterol 2 puff QID PRN. 13. Hypothyroidism. Continue levothyroxine 50mcg QD. TSH ordered. 14. HCP form. Son Marcel is the HCP. HCP on file signed with witness signed. 15. Lack of capacity form. Patient is determined to be lack of capacity d/t dementia and inconsistent answer. Lack of capacity form on file. 16. Patient's MOLST form on file. Patient's DNR/DNI, limited intervention, no feeding tube. Trial of IV fluid. Use antibiotics. 17. Hematuria,vs [employer] bleeding, work up deferred by health care proxy. Patient's pelvis US showed "heterogeneous thickened endometrium possible endometrial polyp. Rule out endometrial neoplasia versus hyperplasia. Endometrial malignancy cannot be excluded. Neither ovary could be directly visualized" Patient's pelvis US showed "heterogeneous thickened endometrium possible endometrial polyp. Rule out endometrial neoplasia versus hyperplasia. Endometrial malignancy cannot be excluded. Per discussion between attending and patient's HCP, HCP would like to observe only with wait and see approach, declined referrals, and HCP was advised of concerns for endometrial or bladder cancer Level 2, need some help: eating, need some help Supervision or touching assistance: Function transfer from wheel chair to bed/toilet, mobility, toileting hygiene, upper body dressing, lower body dressing, Oral Hygiene Independent: eating Partial/moderate assistance:shower/bath self Diet: level 4, FEROZ, thin liquids Allergies Coded Allergies: Penicillins (Verified Allergy, Intermediate, HIVES, 08/27/19) ARETHA CERVANTES DO Jun 25, 2020 08:52 Gianna Monge DO Jun 25, 2020 15:18
[2020-06-25 10:54] LABS: HEMATOCRIT 38.3 % (36.0-47.0); HEMOGLOBIN 12.3 g/dl (12.0-15.5); MEAN CORPUSCULAR HGB CONC 32.1 g/dl (32.0-36.5); MEAN CORPUSCULAR VOLUME 93.4 fl (80.0-96.0); PLATELET COUNT, AUTOMATED 271 10^3/uL (150-450); WHITE BLOOD COUNT 6.5 10^3/uL (4.0-10.0)
== END ==
LOC: SKLAB6 07:00
DX: E03.9 Hypothyroidism, unspecified (principal)

== ENCOUNTER → 2020-07-23 | Outpatient (REF) | payer MEDICARE, OTHER, BC ==
[2020-07-23 09:24] LABS: PERCENT SATURATION 42.5 % (13.2-45.0)
== END ==
LOC: SKLAB6 07:00
DX: D64.9 Anemia, unspecified (principal)

== ENCOUNTER → 2020-08-21 | Outpatient (REF) | payer MEDICARE, OTHER, BC ==
[2020-08-21 17:28] LABS: HEMOGLOBIN 13.2 g/dl (12.0-15.5); MEAN CORPUSCULAR HEMOGLOBIN 29.5 pg (27.0-33.0); MEAN CORPUSCULAR HGB CONC 31.4 g/dl (32.0-36.5); PLATELET COUNT, AUTOMATED 169 10^3/uL (150-450); RED BLOOD COUNT 4.47 10^6/uL (4.00-5.40); WHITE BLOOD COUNT 6.2 10^3/uL (4.0-10.0)
[2020-08-21 18:00] LABS: ALBUMIN 2.9 GM/DL (3.2-5.2); BILIRUBIN,TOTAL 0.5 MG/DL (0.2-1.0); CALCIUM LEVEL 9.1 MG/DL (8.8-10.2); CREATININE FOR GFR 1.33 MG/DL (0.55-1.30); GLOMERULAR FILTRATION RATE 40.2 (>32); POTASSIUM SERUM 4.2 MEQ/L (3.5-5.1); TOTAL PROTEIN 6.6 GM/DL (6.4-8.2)
== END ==
LOC: SKLAB6 08-20 07:00
DX: F03.90 Unspecified dementia, unspecified severity, without behavioral disturbance, psychotic disturbance, mood disturbance, and anxiety (principal); D64.9 Anemia, unspecified

== ENCOUNTER → 2020-08-25 | Outpatient (REF) | payer MEDICARE, OTHER, BC ==
[2020-08-25 21:14] LABS: APPEARANCE, URINE CLOUDY (CLEAR); BACTERIA, URINE AUTO NEGATIVE (NEGATIVE); BILIRUBIN, URINE AUTO NEGATIVE (NEGATIVE); BLOOD, URINE BLOOD 3+ (NEGATIVE); COLOR, URINE AMBER (YELLOW); GLUCOSE, URINE (UA) AUTO NEGATIVE (NEGATIVE); KETONE, URINE AUTO NEGATIVE (NEGATIVE); LEUKOCYTE ESTERASE, URINE AUTO 2+ (NEGATIVE); MUCUS, URINE SMALL (NEGATIVE); NITRITE, URINE AUTO NEGATIVE (NEGATIVE); PROTEIN, URINE AUTO 1+ mg/dL (NEGATIVE); RBC, URINE AUTO TNTC /HPF (0-3); SPECIFIC GRAVITY URINE AUTO 1.016 (1.002-1.035); SQUAMOUS EPITHELIAL CELL UR AU 11 /HPF (0-6); WBC, URINE AUTO 56 /HPF (0-3)
== END ==
LOC: SKLAB6 11:00
DX: R41.82 Altered mental status, unspecified (principal); R10.30 Lower abdominal pain, unspecified

== ENCOUNTER → 2020-08-27 | Outpatient (REF) | payer MEDICARE, OTHER, BC ==
[~2020-08-27] MED LIST changes: +BISA10SU27 PR; +CELE20TA PO; +D31000TA2 PO; +DIVA125C6 PO; +ENEMENE PR; +FAMO1TAB11 PO; +FIBE625T27 PO; -KLOR10TA76 PO; +MILKSUS3 PO; +POTA-136 PO; +SYNT50TA PO
[2020-08-27 15:21] LABS: APPEARANCE, URINE TURBID (CLEAR); BACTERIA, URINE AUTO 3+ (NEGATIVE); BILIRUBIN, URINE AUTO NEGATIVE (NEGATIVE); BLOOD, URINE BLOOD 3+ (NEGATIVE); COLOR, URINE AMBER (YELLOW); GLUCOSE, URINE (UA) AUTO NEGATIVE (NEGATIVE); KETONE, URINE AUTO NEGATIVE (NEGATIVE); LEUKOCYTE ESTERASE, URINE AUTO 3+ (NEGATIVE); MUCUS, URINE SMALL (NEGATIVE); NITRITE, URINE AUTO POSITIVE (NEGATIVE); PROTEIN, URINE AUTO 1+ mg/dL (NEGATIVE); RBC, URINE AUTO 82 /HPF (0-3); SPECIFIC GRAVITY URINE AUTO 1.016 (1.002-1.035); SQUAMOUS EPITHELIAL CELL UR AU 23 /HPF (0-6); WBC, URINE AUTO TNTC /HPF (0-3)
== END ==
LOC: SKLAB6 14:40
DX: R41.82 Altered mental status, unspecified (principal); R10.30 Lower abdominal pain, unspecified

== ENCOUNTER → 2020-09-01 | Outpatient (REF) | payer MEDICARE, OTHER ==
[~2020-09-01] MED LIST changes: -BISA10SU27 PR; -CELE20TA PO; -D31000TA2 PO; -DIVA125C6 PO; -ENEMENE PR; -FAMO1TAB11 PO; -FIBE625T27 PO; +KLOR10TA76 PO; -MILKSUS3 PO; -POTA-136 PO; -SYNT50TA PO
[2020-09-01 11:10] LABS: HEMATOCRIT 41.4 % (36.0-47.0); HEMOGLOBIN 12.9 g/dl (12.0-15.5); MEAN CORPUSCULAR HEMOGLOBIN 29.3 pg (27.0-33.0); MEAN CORPUSCULAR HGB CONC 31.2 g/dl (32.0-36.5); MEAN CORPUSCULAR VOLUME 93.9 fl (80.0-96.0); PLATELET COUNT, AUTOMATED 241 10^3/uL (150-450); RED BLOOD COUNT 4.41 10^6/uL (4.00-5.40); WHITE BLOOD COUNT 6.5 10^3/uL (4.0-10.0)
== END ==
LOC: SKLAB6 07:00
DX: D50.9 Iron deficiency anemia, unspecified (principal)

== ENCOUNTER → 2020-09-15 | Outpatient (REF) | payer MEDICARE, OTHER ==
[~2020-09-15] MED LIST changes: +BISA10SU27 PR; +CELE20TA PO; +D31000TA2 PO; +DIVA125C6 PO; +ENEMENE PR; +FAMO1TAB11 PO; +FIBE625T27 PO; -KLOR10TA76 PO; +MILKSUS3 PO; +POTA-136 PO; +SYNT50TA PO
[2020-09-15 14:02] LABS: HEMOGLOBIN 12.6 g/dl (12.0-15.5); MEAN CORPUSCULAR HEMOGLOBIN 30.2 pg (27.0-33.0); MEAN CORPUSCULAR HGB CONC 32.3 g/dl (32.0-36.5); MEAN CORPUSCULAR VOLUME 93.5 fl (80.0-96.0); PLATELET COUNT, AUTOMATED 313 10^3/uL (150-450); RED BLOOD COUNT 4.17 10^6/uL (4.00-5.40); WHITE BLOOD COUNT 6.8 10^3/uL (4.0-10.0)
[2020-09-15 14:22] LABS: CREATININE FOR GFR 1.2 MG/DL (0.55-1.30); GLOMERULAR FILTRATION RATE 45.2 (>32); POTASSIUM SERUM 4.4 MEQ/L (3.5-5.1)
== END ==
LOC: SKLAB6 12:38
DX: N93.9 Abnormal uterine and vaginal bleeding, unspecified (principal)

== ENCOUNTER 2020-09-17 23:06 | Emergency (ER) | payer MEDICARE, OTHER ==
[~2020-09-17] VITALS: Ht 152.4 cm; Wt 65.5 kg
[~2020-09-17 23:06] MED LIST changes: -BISA10SU27 PR; -CELE20TA PO; -D31000TA2 PO; -DIVA125C6 PO; -ENEMENE PR; -FAMO1TAB11 PO; -FIBE625T27 PO; +KLOR10TA76 PO; -MILKSUS3 PO; -POTA-136 PO; -SYNT50TA PO
--- NOTE | 2020-09-18 00:54 | REPVR ---
PROCEDURE INFORMATION: Exam: CT Cervical Spine Without Contrast Exam date and time: 09/17/2020 11:59 PM Age: 85 years old Clinical indication: Injury or trauma; Fall; Blunt trauma; Additional info: Fall on eliquis TECHNIQUE: Imaging protocol: Computed tomography images of the cervical spine without contrast. Radiation optimization: All CT scans at this facility use at least one of these dose optimization techniques: automated exposure control; mA and/or kV adjustment per patient size (includes targeted exams where dose is matched to clinical indication); or iterative reconstruction. COMPARISON: CT Head without contrast 08/15/2017 1:25 PM FINDINGS: Bones/joints: Nonspecific straightening. Vertebral body height and AP alignment is preserved. Mild degenerative change about the dens. Moderate prevertebral osteophytosis. There are bilateral facet joint degenerative changes. No acute cervical spine fracture. Discs/Spinal canal/Neural foramina: Moderate to severe central canal stenosis suspected at C4-C5 and C5-C6. Multilevel cervical foraminal stenoses. Lungs: Lung apices are normal. Pleural spaces: Large right-sided pleural effusion. No visible pneumothorax. Vasculature: Vascular calcification. Soft tissues: Unremarkable. IMPRESSION: No acute cervical spine fracture. Electronically signed by: Ramakrishna Bond On 09/18/2020 00:53:09 AM
--- NOTE | 2020-09-18 00:55 | REPVR ---
PROCEDURE INFORMATION: Exam: CT Head Without Contrast Exam date and time: 09/17/2020 11:59 PM Age: 85 years old Clinical indication: Injury or trauma; Fall; Blunt trauma (contusions or hematomas); Additional info: Fall on zoranquis TECHNIQUE: Imaging protocol: Computed tomography of the head without contrast. Radiation optimization: All CT scans at this facility use at least one of these dose optimization techniques: automated exposure control; mA and/or kV adjustment per patient size (includes targeted exams where dose is matched to clinical indication); or iterative reconstruction. COMPARISON: CT Head without contrast 08/15/2017 1:25 PM FINDINGS: Brain: Moderate to severe volume loss. Decreased attenuation of the supratentorial white matter is likely secondary to chronic microvascular ischemia. Chronic infarct involving the posterior right temporal lobe extending to the right occipital and right parietal lobes. No acute intracranial hemorrhage or significant intracranial mass effect. Cerebral ventricles: Ventriculomegaly is commensurate for degree of volume loss. Paranasal sinuses: Visualized sinuses are unremarkable. No fluid levels. Mastoid air cells: Visualized mastoid air cells are well aerated. Vasculature: Intracranial vascular calcification. Bones/joints: Unremarkable. No acute fracture. Soft tissues: Left parietal scalp soft tissue injury. IMPRESSION: No acute intracranial abnormality. Electronically signed by: Ramakrishna Bond On 09/18/2020 00:55:10 AM
[2020-09-18 01:58] VITALS: BP 117/62
== END 2020-09-18 02:01 | disposition home or self-care (01) ==
LOC: M ED 23:06
DX: S00.03XA Contusion of scalp, initial encounter (principal); W19.XXXA Unspecified fall, initial encounter; Y92.128 Other place in nursing home as the place of occurrence of the external cause; I12.9 Hypertensive chronic kidney disease with stage 1 through stage 4 chronic kidney disease, or unspecified chronic kidney disease; N18.9 Chronic kidney disease, unspecified; J44.9 Chronic obstructive pulmonary disease, unspecified; K21.9 Gastro-esophageal reflux disease without esophagitis; I48.91 Unspecified atrial fibrillation; G30.9 Alzheimer's disease, unspecified; Z88.0 Allergy status to penicillin; Z79.899 Other long term (current) drug therapy; Z79.01 Long term (current) use of anticoagulants

== ENCOUNTER → 2020-10-01 | Outpatient (REF) | payer MEDICARE, OTHER ==
[~2020-10-01] MED LIST changes: +BISA10SU27 PR; +CELE20TA PO; +D31000TA2 PO; +DIVA125C6 PO; +ENEMENE PR; +FAMO1TAB11 PO; +FIBE625T27 PO; -KLOR10TA76 PO; +MILKSUS3 PO; +POTA-136 PO; +SYNT50TA PO
[2020-10-01 16:29] LABS: HEMATOCRIT 36.5 % (36.0-47.0); HEMOGLOBIN 11.8 g/dl (12.0-15.5); MEAN CORPUSCULAR HEMOGLOBIN 30.1 pg (27.0-33.0); MEAN CORPUSCULAR HGB CONC 32.3 g/dl (32.0-36.5); MEAN CORPUSCULAR VOLUME 93.1 fl (80.0-96.0); PLATELET COUNT, AUTOMATED 247 10^3/uL (150-450); RED BLOOD COUNT 3.92 10^6/uL (4.00-5.40); WHITE BLOOD COUNT 7.1 10^3/uL (4.0-10.0)
== END ==
LOC: SKLAB6 14:13
DX: N93.9 Abnormal uterine and vaginal bleeding, unspecified (principal)

== ENCOUNTER → 2020-10-14 | Outpatient (REF) ==
[~2020-10-14] MED LIST changes: -BISA10SU27 PR; -CELE20TA PO; -D31000TA2 PO; -DIVA125C6 PO; -ENEMENE PR; -FAMO1TAB11 PO; -FIBE625T27 PO; +KLOR10TA76 PO; -MILKSUS3 PO; -POTA-136 PO; -SYNT50TA PO
[2020-10-14 18:55] LABS: APPEARANCE, URINE CLOUDY (CLEAR); BACTERIA, URINE AUTO NEGATIVE (NEGATIVE); BILIRUBIN, URINE AUTO NEGATIVE (NEGATIVE); BLOOD, URINE BLOOD 3+ (NEGATIVE); COLOR, URINE RED (YELLOW); GLUCOSE, URINE (UA) AUTO 1+ mg/dL (NEGATIVE); KETONE, URINE AUTO NEGATIVE (NEGATIVE); LEUKOCYTE ESTERASE, URINE AUTO TRACE (NEGATIVE); MUCUS, URINE SMALL (NEGATIVE); NITRITE, URINE AUTO NEGATIVE (NEGATIVE); PROTEIN, URINE AUTO 2+ mg/dL (NEGATIVE); RBC, URINE AUTO 72 /HPF (0-3); SPECIFIC GRAVITY URINE AUTO 1.015 (1.002-1.035); SQUAMOUS EPITHELIAL CELL UR AU 9 /HPF (0-6); UROBILINOGEN, URINE AUTO 0.2 mg/dL (0.0-2.0); WBC, URINE AUTO 75 /HPF (0-3)
== END ==
LOC: SKLAB6 17:25
DX: R31.9 Hematuria, unspecified (principal); N18.9 Chronic kidney disease, unspecified

== ENCOUNTER → 2020-10-14 | Outpatient (REF) | payer MEDICARE, OTHER | LOC: SKLAB6 18:47 | DX: R31.9 Hematuria, unspecified (principal); N18.9 Chronic kidney disease, unspecified ==

== ENCOUNTER → 2020-10-27 | Outpatient (REF) | payer MEDICARE, OTHER ==
[2020-10-27 11:37] LABS: HEMATOCRIT 36.8 % (36.0-47.0); HEMOGLOBIN 11.8 g/dl (12.0-15.5); MEAN CORPUSCULAR HGB CONC 32.1 g/dl (32.0-36.5); MEAN CORPUSCULAR VOLUME 93.6 fl (80.0-96.0); PLATELET COUNT, AUTOMATED 301 10^3/uL (150-450); RED BLOOD COUNT 3.93 10^6/uL (4.00-5.40); WHITE BLOOD COUNT 6.8 10^3/uL (4.0-10.0)
== END ==
LOC: SKLAB6 07:00
PROVIDERS: ATTEND Internal Medicine
DX: N93.9 Abnormal uterine and vaginal bleeding, unspecified (principal)

== ENCOUNTER → 2020-10-30 | Outpatient (REF) | payer MEDICARE, OTHER ==
[2020-10-30 09:56] LABS: PHOSPHORUS LEVEL 3.2 MG/DL (2.5-4.9)
[2020-10-30 11:03] LABS: PTH INTACT 75.6 PG/ML (18.5-88.0); TOTAL 25(OH) VITAMIN D 24.2 NG/ML (30.0-100.0)
== END ==
LOC: SKLAB6 07:23
PROVIDERS: ATTEND Internal Medicine
DX: N25.81 Secondary hyperparathyroidism of renal origin (principal)

== ENCOUNTER → 2020-11-24 | Outpatient (REF) | payer MEDICARE, OTHER ==
[~2020-11-24] MED LIST changes: -KLOR10TA76 PO; +POTA-136 PO
[2020-11-24 08:59] LABS: HEMATOCRIT 33.6 % (36.0-47.0); HEMOGLOBIN 10.7 g/dl (12.0-15.5); MEAN CORPUSCULAR HEMOGLOBIN 29.2 pg (27.0-33.0); MEAN CORPUSCULAR HGB CONC 31.8 g/dl (32.0-36.5); MEAN CORPUSCULAR VOLUME 91.8 fl (80.0-96.0); PLATELET COUNT, AUTOMATED 287 10^3/uL (150-450); RED BLOOD COUNT 3.66 10^6/uL (4.00-5.40); WHITE BLOOD COUNT 6.6 10^3/uL (4.0-10.0)
== END ==
LOC: SKLAB6 07:00
PROVIDERS: ATTEND Internal Medicine
DX: D64.9 Anemia, unspecified (principal)

== ENCOUNTER → 2020-12-10 | Outpatient (CLI) | payer MEDICARE, OTHER ==
--- NOTE | 2020-12-10 16:22 | REP ---
INDICATION: S/P FALL. COMPARISON: Comparison study September 17, 2020. TECHNIQUE: Helical scanning is acquired. 5 mm axial images were reformatted. Coronal MPR images were generated. FINDINGS: Preliminary digital record cutter radiograph is unremarkable. On bone window settings there is no evidence of skull fracture. The bony calvarium is intact. There is heavy vascular calcification in the distal vertebral and distal internal carotid arteries bilaterally. The visualized paranasal sinuses are clear. No scalp hematoma is appreciated. On soft tissue window settings, there is a large area of encephalomalacia in the right occipital lobe from previous infarction. This involves a portion of the posterior temporal lobe as well. It is unchanged. There is no evidence of intracranial hemorrhage. No extra-axial fluid collection is seen. No acute infarction is seen. Small vessel changes are again noted. There is moderate generalized volume loss. Small IMPRESSION: Large old right temporal occipital lobe infarct. Diffuse atrophy. Small vessel changes. Extensive vascular calcification. No acute intracranial abnormality. <Electronically signed by Reyes Cheema > 12/10/20 [id number]
== END ==
LOC: M PLAIMG 15:18 → M RAD 15:18
PROVIDERS: ATTEND Nurse Practitioner
DX: Z86.73 Personal history of transient ischemic attack (TIA), and cerebral infarction without residual deficits (principal)

== ENCOUNTER → 2020-12-26 | Outpatient (REF) | payer MEDICARE, OTHER ==
[~2020-12-26] MED LIST changes: +BISA10SU27 PR; +CELE20TA PO; +D31000TA2 PO; +DIVA125C6 PO; +ENEMENE PR; +FAMO1TAB11 PO; +FIBE625T27 PO; +MILKSUS3 PO; +SYNT50TA PO
== END ==
LOC: M RAD 20:45
PROVIDERS: ATTEND Internal Medicine
DX: Z53.9 Procedure and treatment not carried out, unspecified reason (principal)

== ENCOUNTER → 2020-12-27 | Outpatient (REF) | payer MEDICARE, OTHER ==
--- NOTE | 2020-12-26 22:48 | REPVR ---
PROCEDURE INFORMATION: Exam: XR Right Shoulder Exam date and time: 12/26/2020 9:17 PM Age: 85 years old Clinical indication: Pain; Shoulder; Right; Additional info: Right shoulder TECHNIQUE: Imaging protocol: XR Right shoulder. Views: 2 or more views. COMPARISON: CR PORTABLE CHEST X-RAY 08/15/2017 1:38 PM FINDINGS: Bones/joints: No fracture or dislocation of the shoulder. Pleural space: Right pleural effusion. Soft tissues: Normal. IMPRESSION: 1. Right pleural effusion. 2. Negative right shoulder. Electronically signed by: Chip Meyer On 12/26/2020 22:48:06 PM
[~2020-12-27] MED LIST changes: -DIVA125C6 PO; +DIVA1CAP PO
== END ==
LOC: SKLAB6 03:16
PROVIDERS: ATTEND Internal Medicine
DX: J90 Pleural effusion, not elsewhere classified (principal); M25.511 Pain in right shoulder

== ENCOUNTER → 2020-12-27 | Outpatient (REF) | payer MEDICARE, OTHER ==
--- NOTE | 2020-12-27 11:56 | REP ---
INDICATION: PLEURAL EFFUSION/ PORTABLE COMPARISON: None. TECHNIQUE: Portable AP view of the chest FINDINGS: Opacity involving the right mid to lower lung zone suggests pleural effusion and underlying airspace disease. Visualized cardiac silhouette within normal limits. Dual lead pacemaker identified. Aerated lung dyer demonstrate chronic changes and mild pulmonary vascular congestion cannot be excluded. IMPRESSION: Moderate to large right-sided opacity suggesting effusion and underlying airspace disease. <Electronically signed by Mir Fernandez > 12/27/20 [id number]
== END ==
LOC: M RAD 11:17
PROVIDERS: ATTEND Internal Medicine
DX: J90 Pleural effusion, not elsewhere classified (principal); M25.511 Pain in right shoulder

== ENCOUNTER 2020-12-28 18:07 | Emergency (ER) | payer MEDICARE, OTHER ==
[~2020-12-28] VITALS: Ht 152.4 cm; Wt 59.1 kg
[~2020-12-28 18:07] MED LIST changes: -BISA10SU27 PR; -CELE20TA PO; -D31000TA2 PO; -DIVA1CAP PO; -ENEMENE PR; -FAMO1TAB11 PO; -FIBE625T27 PO; -MILKSUS3 PO; -SYNT50TA PO
--- OUTSIDE RECORDS SUMMARY | 2020-12-28 18:16 | CCD ---
Author Author [facility] Organization [facility] Address Unknown Phone Unavailable Care Team Providers Care Rehab Technician Name Role Phone Analy La Unavailable Unavailable Analy La Unavailable Unavailable Analy La Unavailable Unavailable Analy La Unavailable Unavailable Analy La Unavailable Unavailable Analy La Unavailable Unavailable Analy La Unavailable Unavailable Analy La Unavailable Unavailable Symenow, Analy Adriana PA Unavailable Unavailable Symenow, Analy Adriana PA Unavailable Unavailable Symenow, Analy Adriana PA Unavailable Unavailable Symenow, Analy Adriana PA Unavailable Unavailable Symenow, Analy Adriana PA Unavailable Unavailable Symenow, Analy Adriana PA Unavailable Unavailable Symenow, Analy Adriana PA Unavailable Unavailable Symenow, Analy Adriana PA Unavailable Unavailable Symenow, Analy Adriana PA Unavailable Unavailable Symenow, Analy Adriana PA Unavailable Unavailable Symenow, Analy Adriana PA Unavailable Unavailable Symenow, Analy Adriana PA Unavailable Unavailable Symenow, Analy Adriana PA Unavailable Unavailable Symenow, Analy Adriana PA Unavailable Unavailable Symenow, Analy Adriana PA Unavailable Unavailable Symenow, Analy Adriana PA Unavailable Unavailable Symenow, Analy Adriana PA Unavailable Unavailable Symenow, Analy Adriana PA Unavailable Unavailable Symenow, Aanly Adriana PA Unavailable Unavailable Symenow, Analy Adriana PA Unavailable Unavailable Symenow, Analy Adriana PA Unavailable Unavailable Symenow, Analy Adriana PA Unavailable Unavailable Symenow, Analy Adriana PA Unavailable Unavailable Symenow, Analy Adriana PA Unavailable Unavailable Symenow, Analy Adriana PA Unavailable Unavailable Symenow, Analy Adriana PA Unavailable Unavailable Re-disclosure Warning The records that you are about to access may contain information from federally-assisted alcohol or drug abuse programs. If such information is present, then the following federally mandated warning applies: This information has been disclosed to you from records protected by federal confidentiality rules (42 CFR part 2). The federal rules prohibit you from making any further disclosure of this information unless further disclosure is expressly permitted by the written consent of the person to whom it pertains or as otherwise permitted by 42 CFR part 2. A general authorization for the release of medical or other information is NOT sufficient for this purpose. The Federal rules restrict any use of the information to criminally investigate or prosecute any alcohol or drug abuse patient.The records that you are about to access may contain highly sensitive health information, the redisclosure of which is protected by Article 27-F of the [facility] Public Health law. If you continue you may have access to information: Regarding HIV / AIDS; Provided by facilities licensed or operated by the [facility] Office of Mental Health; or Provided by the [facility] Office for People With Developmental Disabilities. If such information is present, then the following [facility] mandated warning applies: This information has been disclosed to you from confidential records which are protected by state law. State law prohibits you from making any further disclosure of this information without the specific written consent of the person to whom it pertains, or as otherwise permitted by law. Any unauthorized further disclosure in violation of state law may result in a fine or fci sentence or both. A general authorization for the release of medical or other information is NOT sufficient authorization for further disc losure. Family History Family Member Name Family Member Gender Family Member Status Date o f Status Description Data Source(s) Unknown Unknown Problem [facility] ([facility] Unknown Female Problem [facility] ([facility] Encounters Encounter Providers Location Date Indications Data Source(s ) Outpatient Attender: Adriana ROSE Main Office 07/20/2020 12:30:00 PM EDT [facility] ([facility]) Unknown [address] [facility] [address] 03/04/2020 12:00:00 AM EST eCW1 (formerly [facility]) Outpatient Attender: Adriana ROSE Main Office 01/24/2020 07:45:00 AM EST [facility] ([facility]) Immunizations Vaccine Date Status Description Data Source(s) COVID-19 VACCINE [employer] 04/07/2020 12:00:00 AM EST completed [facility] Vaccine Series Complete: YESThis Data wa s Submitted to [facility] Via [employer]. COVID-19 VACCINE Pfizer 03/17/2020 12:00:00 AM EST completed [facility] Vaccine Series Complete: NOThis Data was Submitted to [facility] Via [employer]. Medications Medication Brand Name Start Date Product Form Dose Route Admi nistrative Instructions Pharmacy Instructions Status Indications Reaction Description Data Source(s) calcium polycarbophil 625 MG Oral Tablet Fiber-Lax 01/23/2020 12 :00:00 AM EST ORAL active [facility] ([facility]) Aspirin 81 MG Delayed Release Oral Tablet Aspirin 81 2019 12:00:00 AM EST ORAL active [facility] ( [facility]) Salicylic Acid 170 MG/ML Topical Solution Salicylic Acid 01/23/2020 12:00:00 AM EST active [facility] ([facility]) Magnesium Hydroxide 240 MG/ML Oral Suspension Milk Of Magnes ia Concentrate 01/23/2020 12:00:00 AM EST ORAL active [facility] ([facility]) Acetaminophen 325 MG Oral Tablet Acetaminophen 01/23/2020 12:00:00 AM EST active [facility] ([facility]) Sodium Phosphate, Dibasic 35.5 MG/ML / S odium Phosphate, Monobasic 96.4 MG/ML Enema Enema 01/23/2020 12:00:00 AM EST active [facility] ([facility]) Bisacodyl 10 MG Rectal Suppository Bisacodyl 01/23/2020 12:00:00 AM EST active [facility] ([facility]) Calcitriol 0.37291 MG Oral Capsule Calcitriol 01/23/2020 12:00:00 AM EST ORAL active [facility] ([facility]) Sertraline 25 MG Oral Tablet Sertraline HCL 01/23/2020 12:00:00 AM EST ORAL completed [facility] ([facility]) Levothyroxine Sodium 0.05 MG Oral Tablet Levothyroxine Sodiu m 01/23/2020 12:00:00 AM EST ORAL active M EDENT ([facility]) Insurance Providers Payer name Policy type / Coverage type Policy ID Covered alliance party ID Covered alliance party's relationship to andrews Policy Andrews Plan Information [employer] [id number] S [id number] [place] [id number] S [id number] [employer] [id number] S [id number] [place] [id number] S [id number] [place] [id number] S [id number] [place] [id number] S [id number] BS EXCELLUS [id number] S X [id number] BCBS [place] [id number] S X [id number] EXCELLUS BCBS [id number] Roya XXP [id number] EXCELLUS BCBS B [id number] S XXP [id number] [place]BS OF [place] 200/700 [id number] SP [id number] MEDICARE [id number] SP [id number] ANSI-Medicare Part B [id number] ANSI-Commercial [id number] ANSI-Commercial [id number] ANSI-Medicare Part B [id number] ANSI-Commercial [id number] ANSI-Medicare Part B [id number] BCBS [place] Medigap Part B [id number] Self X [id number] Medicare (Part B) Medicare Primary [id number] Self 1 [id number] BCBS [place] Medigap Part B [id number] Self X [id number] Medicare (Part B) Medicare Primary [id number] Self 1 [id number] ANSI-Commercial [id number] ANSI-Medicare Part B [id number] ANSI-Commercial [id number] ANSI-Medicare Part B [id number] BCBS [place] Medigap Part B [id number] Self X [id number] Medicare (Part B) Medicare Primary [id number] Self 1 [id number] ANSI-Medicare Part B [id number] ANSI-Commercial [id number] ANSI-Medicare Part B [id number] ANSI-Commercial [id number] MEDICARE C [id number] S [id number] D [place] [id number] Self [id number] Medicare (Part B) Medicare Primary [id number] Self 1 [id number] [place] [id number] Self [id number] Medicare (Part B) Medicare Primary [id number] Self 1 [id number] MEDICARE [id number] SP [id number] D [place] 200/700 [id number] SP [id number] MEDICARE [id number] SP [id number] D [place] [id number] Self [id number] Medicare (Part B) Medicare Primary [id number] Self 1 [id number] [place] [id number] Self [id number] Medicare (Part B) Medicare Primary [id number] Self 1 [id number] [place] [id number] Self [id number] Medicare (Part B) Medicare Primary [id number] Self 1 [id number] [place] [id number] Self [id number] Medicare (Part B) Medicare Primary [id number] Self 1 [id number] BCBS [facility] 200/700 [id number] SP [id number] BS [place] Medigap Part B [id number] Self [id number] Medicare Medicare Primary [id number] Self [place] B [id number] Self Medicare (Part B) Medicare Primary [id number] Self [place] MEDICARE PART B C [id number] S [id number] MEDICARE [id number] Roya [id number] D [place]ICARE [place] MCR [id number] S [id number] [facility] [id number] SP [id number] D [facility] [id number] SP [id number] [facility] MEDICAID [id number] SP [id number] N [facility] [id number] SP [id number] [facility] [id number] SP [id number] MEDICARE [id number] SP [id number] BCBS [facility] 200/700 [id number] SP [id number] SELF PAY MEDICARE C [id number] S [id number] Problems, Conditions, and Diagnoses No Information Surgeries/Procedures Procedure Description Date Indications Data Source(s) ECG ROUTINE ECG W/LEAST 12 LDS W/I&R 07/20/2020 12:00: 00 AM EDT [facility] ([facility]) INTERROGATION EVAL IN PERSON 1/DUAL/BACK HAND LEAD PM 2020 12:00:00 AM EDT [facility] ([facility]) ECG ROUTINE ECG W/LEAST 12 LDS W/I&R 01/24/2020 12:00: 00 AM EST [facility] ([facility]) INTERROGATION EVAL IN PERSON 1/DUAL/BACK HAND LEAD PM 2019 12:00:00 AM EST [facility] ([facility]) Results ID Date Data Source [id number] 12/21/2020 12:00:00 AM EDT [facility] Name Value Range Interpretation Code Description Data Jackie rce(s) Supporting Document(s) SARS coronavirus 2 Ag NEGATIVE [facility] This lab was ordered by [facility] and reported by [facility]. ID Date Data Source [id number] 12/14/2020 12:00:00 AM EDT [facility] Name Value Range Interpretation Code Description Data Jackie rce(s) Supporting Document(s) SARS coronavirus 2 Ag NEGATIVE [facility] This lab was ordered by [facility] and reported by [facility]. ID Date Data Source [id number] 12/02/2020 12:00:00 AM EDT [facility] Name Value Range Interpretation Code Description Data Jackie rce(s) Supporting Document(s) SARS coronavirus 2 Ag NEGATIVE [facility] This lab was ordered by [facility] and reported by [facility]. ID Date Data Source [id number] 11/18/2020 12:00:00 AM EDT [facility] Name Value Range Interpretation Code Description Data Jackie rce(s) Supporting Document(s) SARS coronavirus 2 Ag NEGATIVE [facility] This lab was ordered by [facility] and reported by [facility]. ID Date Data Source [id number] 08/13/2020 12:00:00 AM EDT [facility] Name Value Range Interpretation Code Description Data Jackie rce(s) Supporting Document(s) SARS coronavirus 2 Ag NEGATIVE [facility] This lab was ordered by [facility] and reported by [facility]. ID Date Data Source [id number] 07/30/2020 12:00:00 AM EDT [facility] Name Value Range Interpretation Code Description Data Jackie rce(s) Supporting Document(s) SARS coronavirus 2 Ag NEGATIVE [facility] This lab was ordered by [facility] and reported by [facility]. ID Date Data Source [id number] 07/27/2020 12:00:00 AM EDT [facility] Name Value Range Interpretation Code Description Data Jackie rce(s) Supporting Document(s) SARS coronavirus 2 Ag NEGATIVE [facility] This lab was ordered by [facility] and reported by [facility]. ID Date Data Source [id number] 07/20/2020 12:00:00 AM EDT [facility] Name Value Range Interpretation Code Description Data Jackie rce(s) Supporting Document(s) SARS coronavirus 2 Ag NEGATIVE [facility] This lab was ordered by [facility] and reported by [facility]. ID Date Data Source [id number] 2020 12:00:00 AM EDT [facility] Name Value Range Interpretation Code Description Data Jackie rce(s) Supporting Document(s) SARS coronavirus 2 Ag NEGATIVE [facility] This lab was ordered by [facility] and reported by [facility]. ID Date Data Source [id number] 06/25/2020 04:10:00 PM EDT [facility] ([facility]) Name Value Range Interpretation Code Description Data Jackie rce(s) Supporting Document(s) White Blood Count 6.5 5.0-10.0 [facility] ([facility]) Red Blood Count 4.10 4.00-5.40 [facility] ([facility]) Platelets 271 172-450 [facility]) Hemoglobin 12.3 [facility] ([facility]) Hematocrit 38.3 [facility] ([facility]) ID Date Data Source [id number] 06/12/2020 10:08:00 AM EDT [facility] Name Value Range Interpretation Code Description Data Jackie rce(s) Supporting Document(s) SARS coronavirus 2 RNA Not Detected [facility] [place] This lab was ordered by [facility] and reported by [facility]. ID Date Data Source [id number] 05/27/2020 08:33:00 AM EDT [facility] Name Value Range Interpretation Code Description Data Jackie rce(s) Supporting Document(s) SARS coronavirus 2 RNA Not Detected [facility] [place] This lab was ordered by [facility] and reported by [facility]. ID Date Data Source [id number] 05/20/2020 09:15:00 AM EST [facility] Name Value Range Interpretation Code Description Data Jackie rce(s) Supporting Document(s) SARS coronavirus 2 RNA Not Detected [facility] [place] This lab was ordered by [facility] and reported by [facility]. ID Date Data Source [id number] 05/06/2020 09:44:00 AM EST [facility] Name Value Range Interpretation Code Description Data Jackie rce(s) Supporting Document(s) SARS coronavirus 2 RNA Not Detected [facility] [place] This lab was ordered by [facility] and reported by [facility]. ID Date Data Source [id number] 05/05/2020 01:00:00 PM EST [facility] ([facility]) Name Value Range Interpretation Code Description Data Jackie rce(s) Supporting Document(s) Glucose 119 70-100 [facility] Blood Urea Nitrogen 22 5-21 [facility] Creatinine 1.40 0.6-1.5 [facility]) Sodium 139 136-146 [facility] Potassium 4.5 3.5-5.3 [facility] Carbon Dioxide 24 20-32 [facility] ([facility]) Chloride 107 98-110 [facility] Calcium 8.8 8.4-10.4 [facility] Glomerular filtration rate/1.73 sq M.pre dicted [Volume Rate/Area] in Serum or Plasma by Creatinine-based formula (MDRD) 38.0 [facility] ([facility]) ID Date Data Source [id number] 04/29/2020 10:20:00 AM EST [facility] Name Value Range Interpretation Code Description Data Jackei rce(s) Supporting Document(s) SARS coronavirus 2 RNA Not Detected [facility] [place] This lab was ordered by [facility] and reported by [facility]. ID Date Data Source [id number] 04/22/2020 09:30:00 AM EST [facility] Name Value Range Interpretation Code Description Data Jackie rce(s) Supporting Document(s) SARS coronavirus 2 RNA Not Detected [facility] [place] This lab was ordered by [facility] and reported by [facility]. ID Date Data Source [id number] 04/20/2020 12:00:00 AM EST [facility] Name Value Range Interpretation Code Description Data Jackie rce(s) Supporting Document(s) SARS-CoV2 Rapid Antigen Negative [facility] This lab was ordered by [facility] and reported by [facility]. ID Date Data Source [id number] 04/15/2020 09:41:00 AM EST [facility] Name Value Range Interpretation Code Description Data Jackie rce(s) Supporting Document(s) SARS coronavirus 2 RNA Not Detected [facility] [place] This lab was ordered by [facility] and reported by [facility]. ID Date Data Source [id number] 04/08/2020 07:02:00 AM EST [facility] Name Value Range Interpretation Code Description Data Jackie rce(s) Supporting Document(s) SARS coronavirus 2 RNA Not Detected [facility] [place] This lab was ordered by [facility] and reported by [facility]. ID Date Data Source [id number] 04/06/2020 12:00:00 AM EST [facility] Name Value Range Interpretation Code Description Data Jackie rce(s) Supporting Document(s) SARS-CoV2 Rapid Antigen Negative [facility] This lab was ordered by [facility] and reported by [facility]. ID Date Data Source [id number] 04/03/2020 12:00:00 AM EST [facility] Name Value Range Interpretation Code Description Data Jackie rce(s) Supporting Document(s) SARS-CoV2 Rapid Antigen Negative [facility] This lab was ordered by [facility] and reported by [facility]. ID Date Data Source [id number] 04/01/2020 07:00:00 AM EST [facility] Name Value Range Interpretation Code Description Data Jackie rce(s) Supporting Document(s) SARS coronavirus 2 RNA Not Detected [facility] [place] This lab was ordered by [facility] and reported by [facility]. ID Date Data Source [id number] 03/25/2020 09:00:00 AM EST [facility] Name Value Range Interpretation Code Description Data Jackie rce(s) Supporting Document(s) SARS coronavirus 2 RNA Not Detected [facility] [place] This lab was ordered by [facility] and reported by [facility]. ID Date Data Source [id number] 03/18/2020 10:00:00 AM EST [facility] Name Value Range Interpretation Code Description Data Jackie rce(s) Supporting Document(s) SARS coronavirus 2 RNA Not Detected [facility] [place] This lab was ordered by [facility] and reported by [facility]. ID Date Data Source [id number] 03/11/2020 09:00:00 AM EST [facility] Name Value Range Interpretation Code Description Data Jackie rce(s) Supporting Document(s) SARS coronavirus 2 RNA [facility] This lab was ordered by [facility] and reported by [facility]. ID Date Data Source [id number] 03/04/2020 11:00:00 AM EST [facility] Name Value Range Interpretation Code Description Data Jackie rce(s) Supporting Document(s) SARS coronavirus 2 RNA [facility] This lab was ordered by [facility] and reported by [facility]. ID Date Data Source [id number] 02/26/2020 08:41:00 AM EST [facility] Name Value Range Interpretation Code Description Data Jackie rce(s) Supporting Document(s) SARS coronavirus 2 RNA [facility] This lab was ordered by [facility] and reported by [facility]. ID Date Data Source [id number] 02/19/2020 10:00:00 AM EST [facility] Name Value Range Interpretation Code Description Data Jackie rce(s) Supporting Document(s) SARS coronavirus 2 RNA [facility] This lab was ordered by [facility] and reported by [facility]. ID Date Data Source [id number] 02/12/2020 10:30:00 AM EST [facility] Name Value Range Interpretation Code Description Data Jackie rce(s) Supporting Document(s) SARS coronavirus 2 RNA [facility] This lab was ordered by [facility] and reported by [facility]. ID Date Data Source [id number] 02/05/2020 08:00:00 AM EST [facility] Name Value Range Interpretation Code Description Data Jackie rce(s) Supporting Document(s) SARS coronavirus 2 RNA [facility] This lab was ordered by [facility] and reported by [facility]. ID Date Data Source [id number] 01/29/2020 10:45:00 AM EST [facility] Name Value Range Interpretation Code Description Data Jackie rce(s) Supporting Document(s) SARS coronavirus 2 RNA [facility] This lab was ordered by [facility] and reported by [facility]. ID Date Data Source [id number] 01/23/2020 11:45:00 AM EST [facility] Name Value Range Interpretation Code Description Data Jackie rce(s) Supporting Document(s) SARS coronavirus 2 RNA [facility] This lab was ordered by [facility] and reported by [facility]. ID Date Data Source [id number] 01/01/2020 02:48:00 PM EDT [facility] ([facility]) Name Value Range Interpretation Code Description Data Jackie rce(s) Supporting Document(s) Free T4 0.76 [facility] ([facility]) Thyroid Stimulating Hormone 6.030 [place] [facility] ([facility]) ID Date Data Source [id number] 11/21/2019 02:53:00 PM EDT [facility] ([facility]) Name Value Range Interpretation Code Description Data Jackie rce(s) Supporting Document(s) White Blood Count 5.7 4.0-10.0 [facility] ([facility]) Red Blood Count 4.44 4.00-5.40 [facility] ([facility]) Platelets 224 150-450 [facility] Hemoglobin 13.0 [facility] ([facility]) Hematocrit 40.4 [facility] ([facility]) ID Date Data Source [id number] 11/21/2019 02:53:00 PM EDT [facility] Name Value Range Interpretation Code Description Data Jackie rce(s) Supporting Document(s) Iron 64 50-170 [facility] Iron binding capacity [Mass/volume] in Serum or Plasma 178 [facility] ([facility]) Tibc % Saturation 36.0 [facility] Procedure Social History Code Duration Value Status Description Data Source(s ) Smoking 07/20/2020 12:00:00 AM EDT Patient is a former smoker completed Patient is a former smoker [facility] ([facility]) Vital Signs ID Date Data Source UNK Name Value Range Interpretation Code Description Data Source(s) Body weight 149.00 [lb_av] 149.00 [lb_av] MEDEN T ([facility]) Body height 60 [in_i] 60 [in_i] [facility] ([facility]) 5'0" Body mass index (BMI) [Ratio] 29.1 kg/m2 29.1 k g/m2 [facility] ([facility]) Heart rate 68 /min 68 /min [facility] ([facility]) Regular Respiratory rate 16 /min 16 /min [facility] ( [facility]) Systolic blood pressure 126 mm[Hg] 126 mm[Hg] M EDENT ([facility]) sitting, regular cuff Diastolic blood pressure 74 mm[Hg] 74 mm[Hg] [facility] ([facility]) sitting, regular cuff Systolic blood pressure 122 mm[Hg] 122 mm[Hg] M EDENT ([facility]) sitting Diastolic blood pressure 74 mm[Hg] 74 mm[Hg] [facility] ([facility]) sitting Respiratory rate 16 /min 16 /min [facility] ( [facility]) Systolic blood pressure 126 mm[Hg] 126 mm[Hg] M EDENT ([facility]) sitting, regular cuff Body weight 162.00 [lb_av] 162.00 [lb_av] MEDEN T ([facility]) Body height 60 [in_i] 60 [in_i] [facility] 5'0" Body mass index (BMI) [Ratio] 31.6 kg/m2 31.6 k g/m2 [facility] ([facility]) Heart rate 68 /min 68 /min [facility] ([facility]) Regular Diastolic blood pressure 66 mm[Hg] 66 mm[Hg] [facility] ([facility]) sitting, regular cuff
--- NOTE | 2020-12-28 18:40 | REPVR ---
PROCEDURE INFORMATION: Exam: CT Head Without Contrast Exam date and time: 12/28/2020 6:15 PM Age: 85 years old Clinical indication: Injury or trauma; Fall; Blunt trauma (contusions or hematomas); Additional info: Fall on zoranquis TECHNIQUE: Imaging protocol: Computed tomography of the head without contrast. Radiation optimization: All CT scans at this facility use at least one of these dose optimization techniques: automated exposure control; mA and/or kV adjustment per patient size (includes targeted exams where dose is matched to clinical indication); or iterative reconstruction. COMPARISON: CT Head without contrast 12/10/2020 4:01 PM FINDINGS: Brain: Redemonstration of moderate to severe parenchymal volume loss consistent with advanced patient age. White matter changes are demonstrated in the subcortical, centrum semiovale and periventricular white matter consistent with chronic age related small vessel ischemic changes. 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 Lacunar infarcts left basal ganglia. There is moderate diffuse cerebellar atrophy. Cerebral ventricles: No ventriculomegaly. Paranasal sinuses: Visualized sinuses are unremarkable. No fluid levels. Mastoid air cells: Visualized mastoid air cells are well aerated. Vasculature: Atherosclerotic calcifications are demonstrated in the intracranial carotid arteries bilaterally as well as in the vertebral basilar system. Bones/joints: Unremarkable. No acute fracture. Soft tissues: Unremarkable. IMPRESSION: 1. Redemonstration of moderate to severe parenchymal volume loss consistent with advanced patient age. White matter changes are demonstrated in the subcortical, centrum semiovale and periventricular white matter consistent with chronic age related small vessel ischemic changes. 2. 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 3. There is moderate diffuse cerebellar atrophy. 4. No acute intracranial findings. Electronically signed by: Reji Lees On 12/28/2020 18:40:05 PM
--- OUTSIDE RECORDS SUMMARY | 2020-12-28 19:09 | CCD ---
Author Author [facility] Organization [facility] Address Unknown Phone Unavailable Care Team Providers Care School Health Assistant Name Role Phone Analy La Unavailable Unavailable [...] is protected by Article 27-F of the [facility] Public Health law. If you continue you may have access to information: Regarding HIV / AIDS; Provided by facilities licensed or operated by the [facility] Office of Mental Health; or Provided by the [facility] Office for People With Developmental Disabilities. If such information is present, then the following [facility] mandated warning applies: This information has [...] law may result in a fine or snf sentence or both. A general authorization for the release of medical or other information is NOT sufficient authorization for further disc losure. Family History Family Member Name Family Member Gender Family Member Status Date o f Status Description Data Source(s) Unknown Unknown Problem [facility] ([facility] Unknown Female Problem [facility] ([facility]) Encounters Encounter Providers Location Date Indications Data Source(s ) Outpatient Attender: Adriana ROSE Main Office 07/20/2020 12:30:00 PM EDT [facility] ([facility]) Unknown [address] [facility] [address] 03/04/2020 12:00:00 AM EST eCW1 ([facility]) Outpatient Attender: Adriana ROSE Main Office 01/24/2020 07:45:00 AM EST [facility] ([facility]) Immunizations Vaccine Date Status Description Data Source(s) COVID-19 VACCINE BooRah 04/07/2020 12:00:00 AM EST completed [facility] Vaccine Series Complete: YESThis Data wa s Submitted to [facility] Via [email or web address]. COVID-19 VACCINE Pfizer 03/17/2020 12:00:00 AM EST completed [facility] Vaccine Series Complete: NOThis Data was Submitted to [facility] Via [email or web address]. Medications Medication Brand Name Start Date Product Form Dose Route Admi nistrative Instructions Pharmacy Instructions Status Indications Reaction Description Data Source(s) calcium polycarbophil 625 MG Oral Tablet Fiber-Lax 01/23/2020 12 :00:00 AM EST ORAL active [facility] ([facility]) Aspirin 81 MG Delayed Release Oral Tablet Aspirin 81 2019 12:00:00 AM EST ORAL active [facility] ( [facility]) Salicylic Acid 170 MG/ML Topical Solution Salicylic Acid 01/23/2020 12:00:00 AM EST active [facility] ([facility]) Magnesium Hydroxide 240 MG/ML Oral Suspension Milk Of Magnes ia Concentrate 01/23/2020 12:00:00 AM EST ORAL active [facility] ([facility]) Acetaminophen 325 MG Oral Tablet Acetaminophen 01/23/2020 12:00:00 AM EST active [facility] ([facility] Sodium Phosphate, Dibasic 35.5 MG/ML / S odium Phosphate, Monobasic 96.4 MG/ML Enema Enema 01/23/2020 12:00:00 AM EST active [facility] ([facility]) Bisacodyl 10 MG Rectal Suppository Bisacodyl 01/23/2020 12:00:00 AM EST active [facility] ([facility]) Calcitriol 0.63858 MG Oral Capsule Calcitriol 01/23/2020 12:00:00 AM EST ORAL active [facility] ([facility] Sertraline 25 MG Oral Tablet Sertraline HCL 01/23/2020 12:00:00 AM EST ORAL completed [facility] ([facility]) Levothyroxine Sodium 0.05 MG Oral Tablet Levothyroxine Sodiu m 01/23/2020 12:00:00 AM EST ORAL active M EDENT ([facility]) Insurance Providers Payer name Policy type / Coverage type Policy ID Covered libertarian ID Covered libertarian's relationship to andrews Policy Andrews Plan Information [employer] [id number] S [id number] [place] [id number] S [id number] [employer] [id number] S [id number] [place] [id number] S [id number] [place] [id number] S [id number] [employer] [id number] S [id number] BS EXCELLUS [id number] S X [id number] BCBS [place] [id number] S X [id number] EXCELLUS BCBS [id number] Roya XXP [id number] EXCELLUS BCBS B [id number] S [id number] [id number] BCBS [place] 200/700 [id number] SP [id number] MEDICARE [id number] SP [id number] D ANSI-Medicare Part B [id number] ANSI-Commercial [id number] ANSI-Commercial [id number] ANSI-Medicare Part B [id number] ANSI-Commercial [id number] ANSI-Medicare Part B [id number] BCBS [place] U/[place] Medigap Part B [id number] Self X [id number] Medicare (Part B) Medicare Primary [id number] Self 1 [id number] BCBS [place] Medigap Part B [id number] Self X [id number] Medicare (Part B) Medicare Primary [id number] Self 1 [id number] ANSI-Commercial [id number] ANSI-Medicare Part B [id number] ANSI-Commercial [id number] ANSI-Medicare Part B [id number] BCBS [place] Medigap Part B [id number] Self X [id number] Medicare (Part B) Medicare Primary [id number] Self 1 [id number] ANSI-Medicare Part B [id number] ANSI-Commercial [id number] ANSI-Medicare Part B [id number] ANSI-Commercial [id number] MEDICARE C [id number] S [id number] D [place] [id number] Self [id number] Medicare (Part B) Medicare Primary [id number] Self 1 [id number] [place] [id number] Self [id number] Medicare (Part B) Medicare Primary [id number] Self 1 [id number] MEDICARE [id number] SP [id number] D [place] 200/700 [id number] SP [id number] MEDICARE [id number] SP [id number] D [place] [id number] Self [id number] Medicare (Part B) Medicare Primary [id number] Self 1 [id number] [place] [id number] Self [id number] Medicare (Part B) Medicare Primary [id number] Self 1 [id number] [place] [id number] Self [id number] Medicare (Part B) Medicare Primary [id number] Self 1 [id number] [place] [id number] Self [id number] Medicare (Part B) Medicare Primary [id number] Self 1 [id number] BCBS [facility] 200/700 [id number] SP [id number] BS [place] Medigap Part B [id number] Self [id number] Medicare Medicare Primary [id number] Self [place] B [id number] Self Medicare (Part B) Medicare Primary [id number] Self [place] MEDICARE PART B C [id number] S [id number] MEDICARE [id number] Roya [id number] D [place]ICARE [place] MCR [id number] S [id number] [facility] [id number] SP [id number] D [facility] [id number] SP [id number] [facility] MEDICAID [id number] SP [id number] N [facility] [id number] SP [id number] [facility] [id number] SP [id number] MEDICARE [id number] SP [id number] BCBS [facility] 200/700 [id number] SP [id number] SELF PAY MEDICARE C [id number] S [id number] Problems, Conditions, and Diagnoses No Information Surgeries/Procedures Procedure Description Date Indications Data Source(s) ECG ROUTINE ECG W/LEAST 12 LDS W/I&R 07/20/2020 12:00: 00 AM EDT [facility] ([facility]) INTERROGATION 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 PM 2020 12:00:00 AM EDT [facility] ([facility]) ECG ROUTINE ECG W/LEAST 12 LDS W/I&R 01/24/2020 12:00: 00 AM EST [facility] ([facility]) INTERROGATION 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 ID Date Data Source [id number] 12/14/2020 12:00:00 AM EDT [facility] Name Value Range Interpretation Code Description Data Jackie rce(s) Supporting Document(s) SARS coronavirus 2 Ag NEGATIVE [facility] This lab was ordered by [facility] and reported by [facility]. ID Date Data Source [id number] 12/02/2020 12:00:00 AM EDT [facility] Name Value Range Interpretation Code Description Data Jackie rce(s) Supporting Document(s) SARS coronavirus 2 Ag NEGATIVE [facility] This lab was ordered by [facility] and reported by [facility]. ID Date Data Source [id number] 11/18/2020 12:00:00 AM EDT [facility] Name Value Range Interpretation Code Description Data Jackie rce(s) Supporting Document(s) SARS coronavirus 2 Ag NEGATIVE [facility] This lab was ordered by [facility] and reported by [facility]. ID Date Data Source [id number] 08/13/2020 12:00:00 AM EDT [facility] Name Value Range Interpretation Code Description Data Jackie rce(s) Supporting Document(s) SARS coronavirus 2 Ag NEGATIVE [facility] This lab was ordered by [facility] and reported by [facility]. ID Date Data Source [id number] 07/30/2020 12:00:00 AM EDT [facility] Name Value Range Interpretation Code Description Data Jackie rce(s) Supporting Document(s) SARS coronavirus 2 Ag NEGATIVE [facility] This lab was ordered by [facility] and reported by [facility]. ID Date Data Source [id number] 07/27/2020 12:00:00 AM EDT [facility] Name Value Range Interpretation Code Description Data Jackie rce(s) Supporting Document(s) SARS coronavirus 2 Ag NEGATIVE [facility] This lab was ordered by [facility] and reported by [facility]. ID Date Data Source [id number] 07/20/2020 12:00:00 AM EDT [facility] Name Value Range Interpretation Code Description Data Jackie rce(s) Supporting Document(s) SARS coronavirus 2 Ag NEGATIVE [facility] This lab was ordered by [facility] and reported by [facility]. ID Date Data Source 105 2020 12:00:00 AM EDT [facility] Name Value Range Interpretation Code Description Data Jackie rce(s) Supporting Document(s) SARS coronavirus 2 Ag NEGATIVE [facility] This lab was ordered by [facility] and reported by [facility]. ID Date Data Source [id number] 06/25/2020 04:10:00 PM EDT [facility] ([facility]) Name Value Range Interpretation Code Description Data Jackie rce(s) Supporting Document(s) White Blood Count 6.5 5.0-10.0 [facility] ([facility]) Red Blood Count 4.10 4.00-5.40 [facility] ([facility]) Platelets 271 172-450 [facility] ([facility] Hemoglobin 12.3 [facility] ([facility]) Hematocrit 38.3 [facility] ([facility]) ID Date Data Source [id number] 06/12/2020 10:08:00 AM EDT [facility] Name Value Range Interpretation Code Description Data Jackie rce(s) Supporting Document(s) SARS coronavirus 2 RNA Not Detected [facility] [place] This lab was ordered by [facility] and reported by [facility]. ID Date Data Source [id number] 05/27/2020 08:33:00 AM EDT [facility] Name Value Range Interpretation Code Description Data Jackie rce(s) Supporting Document(s) SARS coronavirus 2 RNA Not Detected [facility] [place] This lab was ordered by [facility] and reported by [facility]. ID Date Data Source [id number] 05/20/2020 09:15:00 AM EST [facility] Name Value Range Interpretation Code Description Data Jackie rce(s) Supporting Document(s) SARS coronavirus 2 RNA Not Detected [facility] [place] This lab was ordered by [facility] and reported by [facility]. ID Date Data Source [id number] 05/06/2020 09:44:00 AM EST [facility] Name Value Range Interpretation Code Description Data Jackie rce(s) Supporting Document(s) SARS coronavirus 2 RNA Not Detected [facility] [place] This lab was ordered by [facility] and reported by [facility]. ID Date Data Source [id number] 05/05/2020 01:00:00 PM EST [facility] ([facility]) Name Value Range Interpretation Code Description Data [...] 24 20-32 [facility] ([facility]) Chloride 107 98-110 [facility] ([facility] [place] Calcium 8.8 8.4-10.4 [facility] ([facility] [place] Glomerular filtration rate/1.73 sq M.pre dicted [Volume Rate/Area] in Serum or Plasma by Creatinine-based formula (MDRD) 38.0 [facility] ([facility]) ID Date Data Source [id number] 04/29/2020 10:20:00 AM EST [facility] Name Value Range Interpretation Code Description Data Jackie rce(s) Supporting Document(s) SARS coronavirus 2 RNA Not Detected [facility] [place] This lab was ordered by [facility] and reported by [facility]. ID Date Data Source [id number] 04/22/2020 09:30:00 AM EST [facility] Name Value Range Interpretation Code Description Data Jackie rce(s) Supporting Document(s) SARS coronavirus 2 RNA Not Detected [facility] [place] This lab was ordered by [facility] and reported by [facility]. ID Date Data Source [id number] 04/20/2020 12:00:00 AM EST [facility] Name Value Range Interpretation Code Description Data Jackie rce(s) Supporting Document(s) SARS-CoV2 Rapid Antigen Negative [facility] This lab was ordered by [facility] and reported by [facility]. ID Date Data Source [id number] 04/15/2020 09:41:00 AM EST [facility] Name Value Range Interpretation Code Description Data Jackie rce(s) Supporting Document(s) SARS coronavirus 2 RNA Not Detected [facility] [place] This lab was ordered by [facility] and reported by [facility]. ID Date Data Source [id number] 04/08/2020 07:02:00 AM EST [facility] Name Value Range Interpretation Code Description Data Jackie rce(s) Supporting Document(s) SARS coronavirus 2 RNA Not Detected [facility] [place] This lab was ordered by [facility] and reported by [facility]. ID Date Data Source [id number] 04/06/2020 12:00:00 AM EST [facility] Name Value Range Interpretation Code Description Data Jackie rce(s) Supporting Document(s) SARS-CoV2 Rapid Antigen Negative [facility] This lab was ordered by [facility] and reported by [facility]. ID Date Data Source [id number] 04/03/2020 12:00:00 AM EST [facility] Name Value Range Interpretation Code Description Data Jackie rce(s) Supporting Document(s) SARS-CoV2 Rapid Antigen Negative [facility] This lab was ordered by [facility] and reported by [facility]. ID Date Data Source [id number] 04/01/2020 07:00:00 AM EST [facility] Name Value Range Interpretation Code Description Data Jackie rce(s) Supporting Document(s) SARS coronavirus 2 RNA Not Detected [facility] [place] This lab was ordered by [facility] and reported by [facility]. ID Date Data Source [id number] 03/25/2020 09:00:00 AM EST [facility] Name Value Range Interpretation Code Description Data Jackie rce(s) Supporting Document(s) SARS coronavirus 2 RNA Not Detected [facility] [place] This lab was ordered by [facility] and reported by [facility]. ID Date Data Source [id number] 03/18/2020 10:00:00 AM EST [facility] Name Value Range Interpretation Code Description Data Jackie rce(s) Supporting Document(s) SARS coronavirus 2 RNA Not Detected [facility] [place] This lab was ordered by [facility] and reported by [facility]. ID Date Data Source [id number] 03/11/2020 09:00:00 AM EST [facility] Name Value Range Interpretation Code Description Data Jackie rce(s) Supporting Document(s) SARS coronavirus 2 RNA [facility] This lab was ordered by [facility] and reported by [facility]. ID Date Data Source [id number] 03/04/2020 11:00:00 AM EST [facility] Name Value Range Interpretation Code Description Data Jackie rce(s) Supporting Document(s) SARS coronavirus 2 RNA [facility] This lab was ordered by [facility] and reported by [facility]. ID Date Data Source [id number] 02/26/2020 08:41:00 AM EST [facility] Name Value Range Interpretation Code Description Data Jackie rce(s) Supporting Document(s) SARS coronavirus 2 RNA [facility] This lab was ordered by [facility] and reported by [facility]. ID Date Data Source [id number] 02/19/2020 10:00:00 AM EST [facility] Name Value Range Interpretation Code Description Data Jackie rce(s) Supporting Document(s) SARS coronavirus 2 RNA [facility] This lab was ordered by [facility] and reported by [facility]. ID Date Data Source [id number] 02/12/2020 10:30:00 AM EST [facility] Name Value Range Interpretation Code Description Data Jackie rce(s) Supporting Document(s) SARS coronavirus 2 RNA [facility] This lab was ordered by [facility] and reported by [facility]. ID Date Data Source [id number] 02/05/2020 08:00:00 AM EST [facility] Name Value Range Interpretation Code Description Data Jackie rce(s) Supporting Document(s) SARS coronavirus 2 RNA [facility] This lab was ordered by [facility] and reported by [facility]. ID Date Data Source [id number] 01/29/2020 10:45:00 AM EST [facility] Name Value Range Interpretation Code Description Data Jackie rce(s) Supporting Document(s) SARS coronavirus 2 RNA [facility] This lab was ordered by [facility] and reported by [facility]. ID Date Data Source [id number] 01/23/2020 11:45:00 AM EST [facility] Name Value Range Interpretation Code Description Data Jackie rce(s) Supporting Document(s) SARS coronavirus 2 RNA [facility] This lab was ordered by [facility] and reported by [facility]. ID Date Data Source [id number] 01/01/2020 02:48:00 PM EDT [facility] ([facility] Name Value Range Interpretation Code Description Data Jackie rce(s) Supporting Document(s) Free T4 0.76 [facility] ([facility]) Thyroid Stimulating Hormone 6.030 ME DENT ([facility]) ID Date Data Source [id number] 11/21/2019 02:53:00 PM EDT [facility] ([facility]) Name Value Range Interpretation Code Description Data Jackie rce(s) Supporting Document(s) White Blood Count 5.7 4.0-10.0 [facility] ([facility]) Red Blood Count 4.44 4.00-5.40 [facility] ([facility]) Platelets 224 150-450 [facility] Hemoglobin 13.0 [facility] ([facility]) Hematocrit 40.4 [facility] ([facility]) ID Date Data Source [id number] 11/21/2019 02:53:00 PM EDT [facility] Name Value Range Interpretation Code Description Data Jackie rce(s) Supporting Document(s) Iron 64 50-170 [facility] Iron binding capacity [Mass/volume] in Serum or Plasma 178 [facility] ([facility]) Tibc % Saturation 36.0 [facility] Procedure Social History Code Duration Value Status Description Data Source(s ) Smoking 07/20/2020 12:00:00 AM EDT Patient is a former smoker completed Patient is a former smoker [facility] ([facility]) Vital Signs ID Date Data Source UNK Name Value Range Interpretation Code Description Data Source(s) Body weight 149.00 [lb_av] 149.00 [lb_av] MEDEN T ([facility]) Body height 60 [in_i] 60 [in_i] [facility] ([facility] 5'0" Body mass index (BMI) [Ratio] 29.1 kg/m2 29.1 k g/m2 [facility] ([facility]) Heart rate 68 /min 68 /min [facility] ([facility]) Regular Respiratory rate 16 /min 16 /min [facility] ( [facility]) Systolic blood pressure 126 mm[Hg] 126 mm[Hg] M EDENT ([facility]) sitting, regular cuff Diastolic blood pressure 74 mm[Hg] 74 mm[Hg] [facility] ([facility]) sitting, regular cuff Systolic blood pressure 122 mm[Hg] 122 mm[Hg] M EDENT ([facility]) sitting Diastolic blood pressure 74 mm[Hg] 74 mm[Hg] [facility] ([facility]) sitting Respiratory rate 16 /min 16 /min [facility] ( [facility]) Systolic blood pressure 126 mm[Hg] 126 mm[Hg] M EDENT ([facility]) sitting, regular cuff Body weight 162.00 [lb_av] 162.00 [lb_av] MEDEN T ([facility]) Body height 60 [in_i] 60 [in_i] [facility] 5'0" Body mass index (BMI) [Ratio] 31.6 kg/m2 31.6 k g/m2 [facility] ([facility]) Heart rate 68 /min 68 /min [facility] ([facility]) Regular Diastolic blood pressure 66 mm[Hg] 66 mm[Hg] [facility] ([facility]) sitting, regular cuff
[2020-12-28] MEDS ORDERED: DIVA1CAP PO (19:18)
[2020-12-28] MEDS ORDERED: D31000TA2 PO (19:18)
[2020-12-28] MEDS ORDERED: CELE20TA PO (19:18)
[2020-12-28] MEDS ORDERED: FIBE625T27 PO (19:18)
[2020-12-28] MEDS ORDERED: FAMO1TAB11 PO (19:18)
[2020-12-28] MEDS ORDERED: BISA10SU27 PR (19:18)
[2020-12-28] MEDS ORDERED: SYNT50TA PO (19:18)
[2020-12-28] MEDS ORDERED: ENEMENE PR (19:27)
[2020-12-28] MEDS ORDERED: MILKSUS3 PO (19:27)
[2020-12-28] MEDS ORDERED: HOME MED LIST COMPLETE! XX SCH (19:30)
--- NOTE | 2020-12-28 19:58 | REP ---
INDICATION: fall. COMPARISON: 08/27/2019. TECHNIQUE: AP pelvis, AP and frogleg left hip. FINDINGS: There is no evidence of acute fracture, dislocation or intrinsic bone disease. Mild degenerative changes are seen at each hip joint. Scattered vascular calcifications are visualized in the pelvis extending into both lower extremities. IMPRESSION: No evidence of acute fracture or dislocation. <Electronically signed by Kiel Grijalva > 12/28/201954
--- NOTE | 2020-12-28 20:42 | REPVR ---
PROCEDURE INFORMATION: Exam: CT Cervical Spine Without Contrast Exam date and time: 12/28/2020 8:20 PM Age: 85 years old Clinical indication: Injury or trauma; Fall; Blunt trauma TECHNIQUE: Imaging protocol: Computed tomography images of the cervical spine without contrast. Radiation optimization: All CT scans at this facility use at least one of these dose optimization techniques: automated exposure control; mA and/or kV adjustment per patient size (includes targeted exams where dose is matched to clinical indication); or iterative reconstruction. COMPARISON: CT Spine,cervical w/o contrast 09/17/2020 11:44 PM FINDINGS: Bones/joints: No acute fracture. Normal alignment. Discs/Spinal canal/Neural foramina: Disc space narrowing from C2-C3 through C7-T1 with intervertebral osteophytes. Mild foraminal stenosis on the left at C3, moderate to severe bilateral foraminal stenosis at C4 and C5, severe foraminal stenosis on the left and moderate foraminal stenosis on the right at C6 changes secondary to osteophytic encroachment. Multilevel disc osteophyte complexes most pronounced from C4-C5 through C6-C7 resulting in moderate cord impingement at C4-C5, C5-C6 and moderate left hemicord impingement at C6-C7. Lungs: Lung apices are normal. Pleural spaces: Right pleural effusion. Soft tissues: Unremarkable. IMPRESSION: Degenerative spondylosis. No acute findings. Electronically signed by: Reji Lees On 12/28/2020 20:41:21 PM
[2020-12-28 21:45] VITALS: BP 124/55
== END 2020-12-28 21:53 | disposition home or self-care (01) ==
LOC: M ED 18:07
DX: S09.90XA Unspecified injury of head, initial encounter (principal); W19.XXXA Unspecified fall, initial encounter; Y92.128 Other place in nursing home as the place of occurrence of the external cause; I50.9 Heart failure, unspecified; F03.90 Unspecified dementia, unspecified severity, without behavioral disturbance, psychotic disturbance, mood disturbance, and anxiety; E78.00 Pure hypercholesterolemia, unspecified; K21.9 Gastro-esophageal reflux disease without esophagitis; Z79.899 Other long term (current) drug therapy; Z79.01 Long term (current) use of anticoagulants; Z88.0 Allergy status to penicillin; Z87.891 Personal history of nicotine dependence

== ENCOUNTER → 2020-12-28 | Outpatient (REF) | LOC: SKLAB6 02:08 | PROVIDERS: ATTEND Internal Medicine | DX: Z53.8 Procedure and treatment not carried out for other reasons (principal) ==

== ENCOUNTER → 2020-12-29 | Outpatient (REF) | payer MEDICARE, OTHER ==
[~2020-12-29] MED LIST changes: +BISA10SU27 PR; +CELE20TA PO; +D31000TA2 PO; +DIVA1CAP PO; +ENEMENE PR; +FAMO1TAB11 PO; +FIBE625T27 PO; +MILKSUS3 PO; +SYNT50TA PO
[2020-12-29 14:09] LABS: APPEARANCE, URINE CLOUDY (CLEAR); BACTERIA, URINE AUTO 1+ (NEGATIVE); BILIRUBIN, URINE AUTO NEGATIVE (NEGATIVE); BLOOD, URINE BLOOD 3+ (NEGATIVE); CALCIUM OXALATE CRYSTALS SMALL; COLOR, URINE AMBER (YELLOW); GLUCOSE, URINE (UA) AUTO NEGATIVE (NEGATIVE); KETONE, URINE AUTO TRACE mg/dL (NEGATIVE); LEUKOCYTE ESTERASE, URINE AUTO 1+ (NEGATIVE); MUCUS, URINE SMALL (NEGATIVE); NITRITE, URINE AUTO NEGATIVE (NEGATIVE); PROTEIN, URINE AUTO 2+ mg/dL (NEGATIVE); RBC, URINE AUTO 5 /HPF (0-3); SQUAMOUS EPITHELIAL CELL UR AU 1 /HPF (0-6); WBC, URINE AUTO 25 /HPF (0-3)
== END ==
LOC: SKLAB6 13:00
PROVIDERS: ATTEND Internal Medicine
DX: R29.6 Repeated falls (principal); Z79.899 Other long term (current) drug therapy

== ENCOUNTER → 2020-12-31 | Outpatient (REF) | payer MEDICARE, OTHER ==
--- NOTE | 2020-12-31 11:18 | REP ---
INDICATION: CHEST EFFUSION NOTED COMPARISON: 12/27/2020 TECHNIQUE: PA and lateral. FINDINGS: Moderate to large right effusion may be slightly increased from prior examination. Right upper lung zone and left hemithorax is relatively clear. The cardiac silhouette is normal/stable. Pacemaker in stable position. Skeletal structures intact. IMPRESSION: Moderate to large right pleural effusion slightly increased from prior examination. <Electronically signed by Mir Fernandez > 12/31/20 [id number]
== END ==
LOC: SKLAB6 13:00
PROVIDERS: ATTEND Internal Medicine
DX: J90 Pleural effusion, not elsewhere classified (principal)

== ENCOUNTER → 2020-12-31 | Outpatient (REF) | payer MEDICARE, OTHER | LOC: SKLAB6 09:07 | PROVIDERS: ATTEND Internal Medicine | DX: Z20.822 Contact with and (suspected) exposure to COVID-19 (principal) ==

== ENCOUNTER → 2021-01-04 | Outpatient (REF) | payer MEDICARE, OTHER ==
[2021-01-04 13:09] LABS: HEMATOCRIT 40.8 % (36.0-47.0); HEMOGLOBIN 12.9 g/dl (12.0-15.5); MEAN CORPUSCULAR HEMOGLOBIN 28.7 pg (27.0-33.0); MEAN CORPUSCULAR HGB CONC 31.6 g/dl (32.0-36.5); MEAN CORPUSCULAR VOLUME 90.7 fl (80.0-96.0); PLATELET COUNT, AUTOMATED 342 10^3/uL (150-450); WHITE BLOOD COUNT 6.9 10^3/uL (4.0-10.0)
--- NOTE | 2021-01-04 13:57 | REP ---
INDICATION: PLEURA EFFUSION. COMPARISON: 12/31/2020 TECHNIQUE: Portable FINDINGS: The technique utilized in obtaining the radiograph has magnified the cardiac silhouette and accentuated the interstitial markings. The cardiomediastinal silhouette is unchanged. Dual chamber bipolar pacemaker device status quo. There is silhouetting out of the right heart border status quo. There is a large opacity in the right lower lobe which is unchanged allowing for the differences in technique. There are no new abnormal opacities in the left lung. There is no change in the osseous structures. IMPRESSION: No significant change from the prior exam other than technique. <Electronically signed by Servando Nam > 01/04/21 [id number]
[2021-01-04 15:06] LABS: ALBUMIN 2.4 GM/DL (3.2-5.2); BILIRUBIN,TOTAL 0.4 MG/DL (0.2-1.0); CALCIUM LEVEL 9.7 MG/DL (8.8-10.2); CREATININE FOR GFR 1.58 MG/DL (0.55-1.30); GLOMERULAR FILTRATION RATE 32.9 (>32); POTASSIUM SERUM 4.8 MEQ/L (3.5-5.1); TOTAL PROTEIN 5.9 GM/DL (6.4-8.2)
== END ==
LOC: SKLAB6 07:00
PROVIDERS: ATTEND Internal Medicine
DX: Z20.822 Contact with and (suspected) exposure to COVID-19 (principal); J98.4 Other disorders of lung; Z95.0 Presence of cardiac pacemaker
CPT/HCPCS: 36415; 71045; 80053; 85027; U0002

== ENCOUNTER → 2021-01-07 | Outpatient (REF) | payer MEDICARE, OTHER | LOC: SKLAB6 06:18 | PROVIDERS: ATTEND Internal Medicine | DX: Z20.822 Contact with and (suspected) exposure to COVID-19 (principal) ==

== ENCOUNTER → 2021-01-08 | Outpatient (REF) | payer MEDICARE, OTHER ==
[2021-01-08 11:22] LABS: HEMATOCRIT 38.2 % (36.0-47.0); HEMOGLOBIN 12.3 g/dl (12.0-15.5); MEAN CORPUSCULAR HEMOGLOBIN 28.7 pg (27.0-33.0); MEAN CORPUSCULAR HGB CONC 32.2 g/dl (32.0-36.5); PLATELET COUNT, AUTOMATED 252 10^3/uL (150-450); RED BLOOD COUNT 4.29 10^6/uL (4.00-5.40); WHITE BLOOD COUNT 6.5 10^3/uL (4.0-10.0)
[2021-01-08 12:49] LABS: ALBUMIN 2.2 GM/DL (3.2-5.2); BILIRUBIN,TOTAL 0.5 MG/DL (0.2-1.0); CREATININE FOR GFR 1.82 MG/DL (0.55-1.30); POTASSIUM SERUM 3.4 MEQ/L (3.5-5.1); TOTAL PROTEIN 5.9 GM/DL (6.4-8.2)
== END ==
LOC: SKLAB2 07:00
PROVIDERS: ATTEND Internal Medicine
DX: U07.1 COVID-19 (principal); Z79.899 Other long term (current) drug therapy

== ENCOUNTER → 2021-01-11 | Outpatient (REF) | payer MEDICARE, OTHER ==
[2021-01-11 09:32] LABS: HEMOGLOBIN 12.2 g/dl (12.0-15.5); MEAN CORPUSCULAR HEMOGLOBIN 28.6 pg (27.0-33.0); MEAN CORPUSCULAR HGB CONC 32.1 g/dl (32.0-36.5); PLATELET COUNT, AUTOMATED 232 10^3/uL (150-450); RED BLOOD COUNT 4.27 10^6/uL (4.00-5.40); WHITE BLOOD COUNT 6.8 10^3/uL (4.0-10.0)
[2021-01-11 10:27] LABS: ALBUMIN 2.1 GM/DL (3.2-5.2); BILIRUBIN,TOTAL 0.4 MG/DL (0.2-1.0); CALCIUM LEVEL 8.8 MG/DL (8.8-10.2); CREATININE FOR GFR 1.44 MG/DL (0.55-1.30); GLOMERULAR FILTRATION RATE 36.7 (>32); POTASSIUM SERUM 3.7 MEQ/L (3.5-5.1); TOTAL PROTEIN 5.4 GM/DL (6.4-8.2)
== END ==
LOC: SKLAB2 08:09
PROVIDERS: ATTEND Internal Medicine
DX: U07.1 COVID-19 (principal); Z79.899 Other long term (current) drug therapy

== ENCOUNTER → 2021-01-13 | Outpatient (REF) | payer MEDICARE, OTHER ==
[2021-01-13 10:05] LABS: MEAN CORPUSCULAR HEMOGLOBIN 28.6 pg (27.0-33.0); MEAN CORPUSCULAR HGB CONC 32.6 g/dl (32.0-36.5); MEAN CORPUSCULAR VOLUME 87.8 fl (80.0-96.0); PLATELET COUNT, AUTOMATED 366 10^3/uL (150-450); WHITE BLOOD COUNT 15.8 10^3/uL (4.0-10.0)
[2021-01-13 10:59] LABS: ALBUMIN 2.9 GM/DL (3.2-5.2); BILIRUBIN,TOTAL 0.4 MG/DL (0.2-1.0); CALCIUM LEVEL 10.2 MG/DL (8.8-10.2); CREATININE FOR GFR 2.15 MG/DL (0.55-1.30); GLOMERULAR FILTRATION RATE 23.1 (>32); POTASSIUM SERUM 3.6 MEQ/L (3.5-5.1); TOTAL PROTEIN 7.6 GM/DL (6.4-8.2)
== END ==
LOC: SKLAB2 07:21
PROVIDERS: ATTEND Internal Medicine
DX: U07.1 COVID-19 (principal); Z79.899 Other long term (current) drug therapy

== ENCOUNTER → 2021-01-14 | Outpatient (REF) | payer MEDICARE, OTHER | LOC: SKLAB2 07:00 | PROVIDERS: ATTEND Internal Medicine | DX: N18.9 Chronic kidney disease, unspecified (principal); Z53.9 Procedure and treatment not carried out, unspecified reason ==

== ENCOUNTER → 2021-01-15 | Outpatient (REF) | payer MEDICARE, OTHER | LOC: SKLAB2 08:32 | PROVIDERS: ATTEND Internal Medicine | DX: Z53.9 Procedure and treatment not carried out, unspecified reason (principal) ==